=== PATIENT | female | born 1990 | race Caucasian/White ===

== ENCOUNTER 2020-02-19 14:03 | Outpatient (CLI) | payer OTHER, SELFPAY ==
--- NOTE | ~2020-02-19 | XR_ITS ---
EXAMINATION: XR chest 2V EXAM DATE: 02/19/2020 14:23 INDICATION: Anterior chest wall pain, symptoms one week. TECHNIQUE: Frontal and lateral projections of the chest obtained and reviewed. Comparison is made to prior examination from 03/10/2018. FINDINGS: The lungs are clear. There are no pleural effusions. The cardiomediastinal silhouette is within normal limits. There is no pneumothorax suspected. The bones and soft tissues are unremarkab le. IMPRESSION: Unremarkable chest x-ray exam. Reviewed, dictated and finalized at location A.
== END 2020-02-19 14:04 | disposition home or self-care (01) ==
PROVIDERS: PCP Family Medicine; Visit Provider Family Medicine
DX: R07.89 Other chest pain (principal)
CPT/HCPCS: 71046

== ENCOUNTER 2021-06-24 09:48 | Outpatient (CLI) | payer OTHER, SELFPAY ==
--- NOTE | ~2021-06-24 | XR_ITS ---
EXAMINATION: XR shoulder LT min 2V DATE: 06/24/2021 10:11 INDICATION: Nontraumatic left shoulder pain TECHNIQUE: AP internally and externally rotated, AP oblique externally rotated and axillary views of the left shoulder were obtained. COMPARISON: None FINDINGS: Normal alignment. No fracture. Glenohumeral joint is normal. Acromioclavicular joint is normal. Soft tissues are unremarkable. Visualized portions of the left lung are clear. IMPRESSION: Negative left shoulder radiographs. Reviewed, dictated and finalized at location A. NSED BONDSMAN
--- NOTE | ~2021-06-24 | XR_ITS ---
EXAMINATION: XR_CERV2-3V_CR EXAM DATE: 06/24/2021 10:11 INDICATION: No known recent injury provided at this time. Pain of the neck. Cervicalgia. Radiating to left shoulder. TECHNIQUE: Cervical spine frontal, lateral, open-mouth odontoid projections. There is no prior stud y for comparison. FINDINGS: There is no evidence of acute cervical fracture. The odontoid process is intact. Pre-dens space is normal. Prevertebral soft tissue is normal. There are no soft tissue abnormalities identi fied. Vertebral body and disc heights are well-maintained. The vertebral bodies are aligned. No more than mild cervical arthropathy. Lung apices are clear. IMPRESSION: 1. No more than mild cervical arthropathy, without stenosis. Reviewed, dictated and finalized at location A. [employer] APPRENTICE
== END 2021-06-24 09:49 | disposition home or self-care (01) ==
LOC: ANHIMG 09:52
PROVIDERS: PCP Family Medicine; Visit Provider Family Medicine
DX: M54.2 Cervicalgia (principal); M25.512 Pain in left shoulder
CPT/HCPCS: 72040; 73030

== ENCOUNTER 2022-10-25 12:50 | Emergency (ER) | payer OTHER, SELFPAY ==
[2022-10-25 13:03] VITALS: BP 112/81; PULSE 93; RESP 16; TEMP 36.7; O2SAT 100
--- NOTE | 2022-10-25 13:05 | ED.BACK ---
HPI - Back Pain/Injury General Chief Complaint: Back Pain/Injury Stated Complaint: neck/back pain Time Seen by Provider: 10/25/22 13:06 Source: patient Mode of arrival: ambulatory Limitations: no limitations History of Present Illness HPI Narrative: Ms. Bañuelos is a 32-year-old female patient presenting to clinic today with complaints of neck and upper back pain 2 days. She reports she has no known injury. She is having pain into the right side of her neck and into the right trapezius muscle. Has pain with turning her head side to side. Denies any numbness or tingling going down her arm however the feels as though the pain is radiating into the anterior chest as well with movement. Related Data Home Medications Medication Instructions Recorded Confirmed L norgest/E estradiol-E estrad 1 tablet DAILY 06/23/19 06/23/19 0.15 mg-30 mcg (84)/10 mcg(7) tabs,3mos (Ashlyna) Allergies Allergy/AdvReac Type Severity Reaction Status Date / Time ciprofloxacin Allergy Intermediate Anaphylactic Verified 04/11/18 11:27 Shock Sulfa (Sulfonamide Allergy Unknown Rash Verified 06/21/19 21:24 Antibiotics) Review of Systems Review of Systems: Pertinent positives per HPI. Patient denies any fever, chills, rash, headache, visual changes, dizziness, cough, runny nose, sore throat, shortness of breath, chest pain, palpitations, nausea, vomiting, diarrhea, constipation, abdominal pain, or any urinary issues. PMFSH Past Medical History Medical History Healthy adult Surgical History Surgical History No pertinent past surgical history Social History Social History Smoking status: Current every day smoker Gender identity (if verbalized by the patient): Female Comments At the time of my signature, I reviewed and agree with the nursing past medical, surgical, social, and family history. There is no relevant family history pertinent to the patient complaint. Exam Narrative: General: Well-developed, well nourished, in no apparent distress Head: Normocephalic, atraumatic. Cardio: Regular rate and rhythm, s1 and s2 normal, no murmur appreciated. Resp: Clear to auscultation bilaterally, no rhonchi, rales, wheezing or rubs. Musculoskeletal: No deformity, tender to palpation over the right trapezius musculature and also the cervical portion of the trapezius muscle, pain with turning her head to the left against resistance, unable to fully hyperextend or flex her neck, range of motion limited due to pain, hand grasp strong bilaterally, muscle strength strong and equal, peripheral pulse strong, no edema, no cyanosis, normal gait and station Course Course Emergency Course: Portions of this record may have been created with voice recognition software. Level of Care: Express Care Visit Vital Signs Vital signs: Vital Signs Temperature 36.7 C 10/25/22 13:03 Pulse Rate 93 10/25/22 13:03 Respiratory Rate 16 10/25/22 13:03 Blood Pressure 112/81 10/25/22 13:03 Pulse Oximetry 100 10/25/22 13:03 Temperature 36.7 C 10/25/22 13:03 Pulse Rate 93 10/25/22 13:03 Respiratory Rate 16 10/25/22 13:03 Blood Pressure 112/81 10/25/22 13:03 Pulse Oximetry 100 10/25/22 13:03 Vital signs reviewed MDM - Back Pain/Injury MDM Narrative Medical decision making narrative: At the time of visit patient is resting comfortably on exam table. I suspect patient has a muscular strain of the cervical portion of the trapezius muscle. Will send in prescription for some prednisone and Flexeril. Supportive measures were discussed with the patient she voiced understanding discharge instructions agrees to treatment plan. Differential Diagnosis Differential diagnosis: Likely other (Muscle strain, cervical strain, cervical disc disease, to
== END 2022-10-25 13:19 | disposition home or self-care (01) ==
PROVIDERS: Emergency Provider Nurse Practitioner Family; PCP Physician Assistant
DX: S16.1XXA Strain of muscle, fascia and tendon at neck level, initial encounter (principal); X58.XXXA Exposure to other specified factors, initial encounter; F17.200 Nicotine dependence, unspecified, uncomplicated
CPT/HCPCS: 99213; G0463

== ENCOUNTER 2022-11-06 09:11 | Emergency (ER) | payer OTHER, SELFPAY ==
[2022-11-06 09:30] VITALS: BP 114/85; PULSE 90; RESP 16; TEMP 36.6; O2SAT 100
--- NOTE | 2022-11-06 09:36 | ED.URI ---
HPI - URI/Sore Throat General Chief Complaint: Upper Respiratory Infection Stated Complaint: SORE THROAT/FEVER Time Seen by Provider: 11/06/22 09:36 Source: patient, RN notes reviewed and old records reviewed Mode of arrival: ambulatory Limitations: no limitations History of Present Illness HPI Narrative: 32-year-old female presents to the [facility] with complaints of sore throat and fever. Patient reports 3 days of a sore throat. Reports 102 fever last night. Has taken [id number] products which has helped symptoms. Patient states that she is concerned mostly for strep. Onset (ago): day(s) (3) Related Data Home Medications Medication Instructions Recorded Confirmed levothyroxine 50 mcg tablet 50 mcg PO DAILY 11/06/22 11/06/22 sertraline 50 mg tablet 50 mg PO DAILY 11/06/22 11/06/22 Allergies Allergy/AdvReac Type Severity Reaction Status Date / Time ciprofloxacin Allergy Intermediate Anaphylactic Verified 04/11/18 11:27 Shock Sulfa (Sulfonamide Allergy Unknown Rash Verified 06/21/19 21:24 Antibiotics) Review of Systems Review of Systems: All systems reviewed & are unremarkable except as noted in HPI and below Constitutional: Constitutional: Reports as per HPI and Reports fever(s) Eyes: Eyes: Reports no additional eye complaints ENT: Reports as per HPI and Reports sore throat Cardiovascular: Cardiovascular: Reports no additional cardiovascular complaints, Denies chest pain and Denies dyspnea Respiratory: Respiratory: Reports no additional respiratory complaints, Denies chest congestion, Denies cough and Denies dyspnea Gastrointestinal: Gastrointestinal: Reports no additional gastrointestinal complaints, Denies abdominal pain, Denies nausea and Denies vomiting Musculoskeletal: Musculoskeletal: Reports no additional musculoskeletal complaints Integumentary/Breasts: Skin/Breast: Reports system reviewed and no additional complaints, except as docu Neurologic: Reports system reviewed and no additional complaints, except as documented Psychiatric: Psychiatric: Reports no additional psychiatric complaints Allergic/Immunologic: Allergic/Immunologic: Reports no additional allergic/immunologic complaints PMFSH Past Medical History Medical History Healthy adult Surgical History Surgical History No pertinent past surgical history Social History Social History Smoking status: Current every day smoker Gender identity (if verbalized by the patient): Female Comments At the time of my signature, I reviewed and agree with the nursing past medical, surgical, social, and family history. There is no relevant family history pertinent to the patient complaint. Exam Const: General: cooperative, healthy appearing, comfortable, no acute distress, well developed, alert and well nourished Nutritional Appearance: well nourished Orientation/consciousness: patient oriented x3 Limitations: no limitations HENMT: Head: normal to inspection Ears: hearing grossly normal bilaterally and external ears normal Face/Nose/Sinus: Normal external nose present, Normal nares present, Normal nasal mucous membranes and turbinates present and normal facial exam Face and sinus: normal facial exam Mouth: Yes Normal oral and palatal mucosa present, Yes lip normal and Yes moist mucous membranes Throat: posterior oropharynx normal, tonsils normal and uvula midline (Bifurcated) Eyes: General: appearance normal, both eyes and all related structures Alignment and Position: alignment normal Periorbital: periorbital findings normal Conjunctivae: conjunctivae normal Pupils: Equal, round and reactive pupils present EOM: EOMs intact bilaterally Neck: Neck: normal visual inspection, full ROM, no lymphadenopathy and no meningeal signs Chest: Chest palpation & inspection
== END 2022-11-06 09:48 | disposition home or self-care (01) ==
PROVIDERS: Emergency Provider Nurse Practitioner; PCP Physician Assistant
DX: J02.9 Acute pharyngitis, unspecified (principal); F17.200 Nicotine dependence, unspecified, uncomplicated
CPT/HCPCS: 87081; 87880; 99213; G0463

== ENCOUNTER 2023-09-27 13:17 | Outpatient (CLI) | payer OTHER, SELFPAY ==
[2023-09-27 13:48] LABS: Hematocrit 39.7 % (37.0-47.0); Hemoglobin 13.1 g/dL (12.0-15.0)
== END 2023-09-27 13:18 | disposition home or self-care (01) ==
LOC: ANHSURGERY 13:20
PROVIDERS: PCP Physician Assistant; Visit Provider Obstetrics & Gynecology
DX: R10.2 Pelvic and perineal pain (principal); Z01.818 Encounter for other preprocedural examination
CPT/HCPCS: 36415; 85014; 85018; 86850; 86900; 86901

== ENCOUNTER 2023-10-29 00:29 | Day surgery (SDC) | payer OTHER, SELFPAY ==
[2023-09-24 14:57] VITALS: BMI 22.8
--- NOTE | 2023-09-24 15:29 | PC.NURSE ---
Addendum entered by Meena Park RN 10/21/23 15:32: PT TO ARRIVE AT 0630 ON 10/29/23 FOR SURGERY AT 0830. Original Note: Report to the Outpatient Waiting Room, entrance under the green pavilion located off [facility], at time __0815AM_ on date _Wed10/01/23 . Planned Procedure Time: _1015AM . Time changes happen often and if your time is changed the preop area will call you the afternoon before. - You and your visitor will be asked to self-screen and do not enter if you have any COVID symptoms. - A mask is optional within the hospital at this time. Patients may have clear liquids (water, carbonated beverages, clear teas, apple juice) until 3 hours prior to surgery with a maximum of 20 ounces. - No food from midnight until time of surgery Take the following medications with a SIP of water the morning of surgery: LEVOTHYROXINE; SERTRALINE DO NOT STOP ANY OF YOUR OTHER PRESCRIPTION MEDICATIONS PRIOR TO SURGERY ?EXCEPT THE FOLLOWING Medications to discontinue per physician NONE Date to take last dose Please no make-up, nail maltese, hairspray, perfume, deodorant, or body powder the day of surgery. No jewelry (including any body piercings) or valuables the day of surgery, leave them at home. Please take a shower or bath the night before, or the morning of, surgery with an antibacterial soap. Wear comfortable, loose fitting clothing. Children are encouraged to wear pajamas. - Jewelry must be removed prior to entering the operating room. Rings and piercings that are not removed may be cut off. - The hospital will not accept responsibility for valuables. - Please leave all valuables, including medications, at home the day of surgery. If you are going home after surgery, a licensed hole digger truck driver must drive you home. - NO public transportation without another adult if you receive anesthesia. - We recommend that an adult stay with you for 24 hours following discharge. - We also recommend that you do not drive, make important decision, drink alcoholic beverages, or take any drugs that were not prescribed by your health care provider for at least 24 hours after your discharge time. Follow any additional instructions given to you from your surgeon. If you or anyone in your household have experienced Covid symptoms in the past week, please notify your surgeon or the nurse liaison at the phone number below for possible testing. Telephone instructions given to __YOLANDA and asked if any additional questions and then verbalized understanding. Patient advised to call surgeon office or pre surgery nurse liaison [phone] if any additional questions.
--- NOTE | 2023-09-30 06:46 | PM.IMHP ---
H&P: HPI History of Present Illness Date/Time: 09/30/23 06:46 Chief Complaint: pelvic pain and bleeding Narrative: 33-year-old female admitted for laparoscopy/hysteroscopy / dilatation curettage. The patient has had pain and irregular bleeding. She also desires so we will the undertake chromopertubation well inside. Risks and benefits of this procedure reviewed including not exclusive of , aspiration, bleeding, transfusion, perforation injury to bowel, bladder, ureters, or other internal organs with need for laparotomy. She received the ACOG handout entitled laparoscopy, hysteroscopy, dilatation curettage respectively, had all questions answered and asked to proceed PMFSH Past Medical History Medical History Healthy adult Surgical History Surgical History No pertinent past surgical history Social History Social History Smoking status: Never smoker Alcohol intake: never Substance use: never Substance use type: does not use Living arrangements: with family Gender identity (if verbalized by the patient): Female Spiritual care concerns: No Meds Home Medications and Allergies Home Medications Medication Instructions Recorded Confirmed Type levothyroxine 50 mcg tablet 50 mcg PO DAILY 11/06/22 09/24/23 History sertraline 50 mg tablet 25 mg PO DAILY 11/06/22 09/24/23 History Allergies Allergy/AdvReac Type Severity Reaction Status Date / Time ciprofloxacin Allergy Intermediate Anaphylactic Verified 09/24/23 15:27 Shock Sulfa (Sulfonamide Allergy Unknown Rash Verified 09/24/23 15:27 Antibiotics) Exam Const: General: cooperative, healthy appearing and comfortable Nutritional Appearance: average body habitus Orientation/consciousness: oriented to person, oriented to place and oriented to time HENMT: Head: normal to inspection Resp: Effort & Inspection: normal respiratory effort Cardio: Rate: regular rate Rhythm: regular rhythm Heart sounds: S1 normal heart sound present and S2 normal heart sound present GI: Inspection: normal to inspection : External Female Exam: normal external appearance Speculum Exam - Vagina: normal appearance of the vagina Speculum Exam - Cervix: normal appearance of the cervix Bimanual exam- vagina & uterus: Uterine tenderness Bimanual Exam- Adnexa, other: tender bilaterally Assessment and Plan Assessment and plan (1) Pelvic pain: Code(s): R10.2 - Pelvic and perineal pain Status: Acute (2) Irregular intermenstrual bleeding: Code(s): N92.1 - Excessive and frequent menstruation with irregular cycle Status: Acute Plan laparoscopy/ hysteroscopy/ dilatation curettage/ chromopertubation
--- NOTE | 2023-09-30 12:36 | WPDANESEPPF ---
Anes - Initial Pre Proc Eval Procedure: Operation Date: 10/01/23 10:15 Proposed Procedures p Diagnostic Laparoscopy with Dilation and Curettage, Chromopertubation - Juan Rosario MD Date/Time: 09/30/23 12:36 Surgeon: Juan Rosario MD Pre Op Diagnosis: Pelvic Pain, Excessive Bleeding Patient Data Age: 33 Gender: F Height: 1.78 m Weight: 72.1 kg Allergies Allergy/AdvReac Type Severity Reaction Status Date / Time ciprofloxacin Allergy Intermediate Anaphylactic Verified 09/24/23 15:27 Shock Sulfa (Sulfonamide Allergy Unknown Rash Verified 09/24/23 15:27 Antibiotics) Home Medications Medication Instructions Recorded Confirmed Type levothyroxine 50 mcg tablet 50 mcg PO DAILY 11/06/22 09/24/23 History sertraline 50 mg tablet 25 mg PO DAILY 11/06/22 09/24/23 History Results Review: All pre-operative results and documents have been reviewed as part of the pre-operative evaluation. [facility] Past Medical History Medical History (Updated 09/30/23 @ 12:37 by Juan Doherty DO) Anxiety Asthma Endometriosis Healthy adult Hypothyroidism Surgical History Surgical History No pertinent past surgical history Social History Social History Smoking status: Never smoker Alcohol intake: never Substance use: never Substance use type: does not use Living arrangements: with family Gender identity (if verbalized by the patient): Female Spiritual care concerns: No Anes - Eval Final PreProcedure Day of Procedure 09/30/23 12:36 Results Review: All pre-operative results and documents have been reviewed as part of the pre-operative evaluation. Informed Consent: The patient's anesthetic plan and its attendant risks and benefits were discussed with the patient/family/POA. Questions were solicited and answers provided to the satisfaction of the patient/family/POA.
--- NOTE | 2023-10-21 15:31 | PC.NURSE ---
Pt states no changes in medications or health history since initial interview. New preop instructions reviewed with pt. Pt denies further questions at this time.
--- NOTE | 2023-10-27 06:46 | PM.IMHP ---
H&P: HPI History of Present Illness Date/Time: 10/27/23 06:46 Chief Complaint: pelvic pain and bleeding Narrative: since 33-year-old 1 para admitted for diagnostic laparoscopy/hysteroscopy / dilatation curettage secondary to bleeding and pain. She will also undergo chromopertubation a she would like to become . Risks and benefits reviewed including exclusive of , aspiration, bleeding, transfusion, perforation into the bowel, bladder, ureters, or other internal organs with the need for open laparotomy. She received the ACOG handouts entitled hysteroscopy/ dilatation curettage/laparoscopy. She had all questions answered. She asked to proceed PMFSH Past Medical History Medical History Anxiety Asthma Endometriosis Healthy adult Hypothyroidism Surgical History Surgical History No pertinent past surgical history Social History Social History Smoking status: Never smoker Alcohol intake: never Substance use: never Substance use type: does not use Living arrangements: with family Gender identity (if verbalized by the patient): Female Spiritual care concerns: No Meds Home Medications and Allergies Home Medications Medication Instructions Recorded Confirmed Type levothyroxine 50 mcg tablet 50 mcg PO DAILY 11/06/22 10/21/23 History sertraline 50 mg tablet 25 mg PO DAILY 11/06/22 10/21/23 History Allergies Allergy/AdvReac Type Severity Reaction Status Date / Time ciprofloxacin Allergy Intermediate Anaphylactic Verified 10/21/23 15:31 Shock Sulfa (Sulfonamide Allergy Unknown Rash Verified 10/21/23 15:31 Antibiotics) Exam Const: General: cooperative, healthy appearing and comfortable Nutritional Appearance: average body habitus Orientation/consciousness: oriented to person, oriented to place and oriented to time HENMT: Head: normal to inspection Resp: Effort & Inspection: normal respiratory effort Cardio: Rate: regular rate Rhythm: regular rhythm Heart sounds: S1 normal heart sound present and S2 normal heart sound present GI: Inspection: normal to inspection Assessment and Plan Assessment and plan (1) Irregular intermenstrual bleeding: Code(s): N92.1 - Excessive and frequent menstruation with irregular cycle Status: Acute (2) Pelvic pain: Code(s): R10.2 - Pelvic and perineal pain Status: Acute Plan laparoscopy/ hysteroscopy / dilatation curettage/ chromopertubation
[2023-10-29] VITALS (10 sets, daily range): BP systolic 98–115; BP diastolic 56–82; PULSE 59–79; RESP 14–18; TEMP 36.6–36.9; O2SAT 96–100
--- NOTE | 2023-10-29 04:40 | WPDHPUPDATE1 ---
History and Physical Update Update Date/Time: 10/29/23 04:40 History and Physical has been reviewed, including an updated exam of the patient. There are NO changes in the patient's condition. Risks, benefits, and alternatives have been discussed and questions answered. Patient agrees to proceed with procedure.
[2023-10-29] MEDS: ACETAMINOPHEN 500 MG TABLET 1000 MG PO (06:43)
[2023-10-29] MEDS: LACTATED RINGERS 1,000 ML 30 ML IV CONT ×2 (07:28→09:44)
[2023-10-29] MEDS: KETOROLAC 15 MG/ML VIAL (*BKC) IV PUSH (07:28)
--- NOTE | 2023-10-29 07:52 | P.PNAN_ITS ---
Anes - Initial Pre Proc Eval Procedure: Operation Date: 10/29/23 08:30 Proposed Procedures p Diagnostic Laparoscopy, Hysteroscopy with Dilation and Curettage - Juan Rosario MD Date/Time: 10/29/23 07:52 Surgeon: Juan Rosario MD Pre Op Diagnosis: Pelvic Pain, Excessive Bleeding Patient Data Age: 33 Gender: F Height: 1.78 m Weight: 69.3 kg Last Vital Signs Temp 97.9 F 10/29/23 06:51 Pulse 79 10/29/23 06:51 Resp 16 10/29/23 06:51 BP 112/82 10/29/23 06:51 Pulse Ox 100 10/29/23 06:51 O2 Del Method Room Air 10/29/23 06:51 Allergies Allergy/AdvReac Type Severity Reaction Status Date / Time ciprofloxacin Allergy Intermediate Anaphylactic Verified 10/29/23 06:41 Shock Sulfa (Sulfonamide Allergy Unknown Rash Verified 10/29/23 06:41 Antibiotics) Home Medications Medication Instructions Recorded Confirmed Type levothyroxine 50 mcg tablet 50 mcg PO DAILY 11/06/22 10/21/23 History sertraline 50 mg tablet 25 mg PO DAILY 11/06/22 10/21/23 History hydrocodone 5 mg-acetaminophen 325 1 tablet PO Q4H PRN pain #30 tabs 10/29/23 Rx mg tablet Laboratory Tests 10/29/23 07:06 Blood Type Pending Antibody Screen Pending Patient hx anesthesia problems: none Family hx anesthesia problems: none Results Review: All pre-operative results and documents have been reviewed as part of the pre- operative evaluation. [facility] Past Medical History Medical History Anxiety Asthma Endometriosis Healthy adult Hypothyroidism Surgical History Surgical History No pertinent past surgical history Social History Social History Smoking status: Never smoker Alcohol intake: never Substance use: never Substance use type: does not use Living arrangements: with family Gender identity (if verbalized by the patient): Female Spiritual care concerns: No Anes - Eval Final PreProcedure Day of Procedure 10/29/23 07:52 Patient weight: normal Heart: regular rate and rhythm Lungs: clear to auscultation Airway: Mallampati scale and special considerations (Upper incisor crown. ) Neurological: alert and oriented Last oral intake: >/= 8 hours ASA classification: II Emergent: no Anesthetic plan: proceed Anesthesia type and monitoring: general LMA and standard monitoring Results Review: All pre-operative results and documents have been reviewed as part of the pre- operative evaluation. Informed Consent: The patient's anesthetic plan and its attendant risks and benefits were discussed with the patient/family/POA. Questions were solicited and answers provided to the satisfaction of the patient/family/POA.
[2023-10-29] MEDS: METHYLENE BLUE 0.5% INJ 10 ML AMPULE 20 ML IRRIGATION (08:56)
--- NOTE | 2023-10-29 09:40 | W.PM.PROC2 ---
Procedure Note - Detailed Date of Procedure 10/29/23 Pre-op Diagnosis Pelvic Pain, Excessive Bleeding Post-op Diagnosis Other (Pelvic pain/excessive bleeding/ endometriosis) Procedure Performed laparoscopy with destruction endometriosis. Hysteroscopy/ dilatation curettage/chromopertubation Surgeon Juan Rosario MD Anesthesia General Indications to 33-year-old female pain and excessive heavy bleeding Findings multiple areas of endometriosis in the cul-de-sac on each ovary and uterosacral ligament. Patent fallopian tubes by chromopertubation. Normal-appearing appendix liver and gallbladder Description of Procedure patient was prepped draped in the normal sterile fashion placed in the dorsal lithotomy position. Under excellent general trach anesthesia weighted speculum placed in posterior fornix vagina. Anterior lip of the cervix grasped with single-tooth tenaculum. Amaya's cannula inserted the cervix and attached to the single-tooth. The weighted speculum was removed and this was used later for uterine manipulation. The bladder emptied of clear urine and gloves were changed. An infraumbilical incision made in the Veress needle passed in the abdomen. Abdomen filled with CO2 gas 15mmHg. 5mm trocar advanced under the Optiview with no injury seen. Patient placed in Trendelenburg and a suprapubic incision made. The 5mm trocar advanced under direct visualization assuring no injury. Photo documentation was undertaken of the endometriosis. Using monopolar polar cautery at 35 w per 2nd these areas were desiccated. Irrigation undertaken until clear. The uterus appeared within normal limits the fallopian tubes were noted be open after methylene blue was pushed to the left fallopian tube. Irrigation undertaken again the appendix liver gallbladder were visualized and photo documented. No other abnormalities were seen. The lower site removed. The gas removed from the abdomen. The upper site removed. The incisions closed with 4-0 Monocryl and glue. Attention was then turned to the hysteroscopic portion. The uterus sounded to 8cm. Serial dilatation with fragmented dilators performed followed by passage of the 5mm visualizing of the dye hysteroscope. No abnormalities were seen. The uterus then scraped over the 360? until a good grating sound was heard. The instruments withdrawn the patient was awakened went to recovery in satisfactory condition. All sponge, needle, instrument counts were correct. Blood loss estimated 5cc. There were no immediate complications noted Estimated Blood Loss 5 Drains No Packing No Pathology Yes Complications No immediate complications Condition Stable Disposition PACU
[2023-10-29] MEDS: oxyCODONE HCL (*CRX) 5 MG TAB IR PO (11:00)
[2023-10-29] MEDS: ONDANSETRON INJ 4 MG/2 ML VIAL IV PUSH (12:06)
== END 2023-10-29 12:30 | disposition home or self-care (01) ==
PROVIDERS: PCP Physician Assistant; Visit Provider Obstetrics & Gynecology
PROC: 0UDB8ZZ Extraction of Endometrium, Via Natural or Artificial Opening Endoscopic (ICD-10-PCS; CPT 58558; principal; 2023-10-29 08:30)
DX: N80.103 Endometriosis of bilateral ovaries, unspecified depth (principal); N80.3C3 Endometriosis of bilateral uterosacral ligament(s), unspecified depth; N92.1 Excessive and frequent menstruation with irregular cycle; F41.9 Anxiety disorder, unspecified; E03.9 Hypothyroidism, unspecified
CPT/HCPCS: 58558; 58662; 36415; 86850; 86900; 86901; 88305; A9270; J1100; J1170; J1200; J1885; J2250; J2405; J2704; J3010; J7030; J7120; Q9968

== ENCOUNTER 2024-09-18 21:50 | Observation (INO) | payer BC, SELFPAY ==
[2024-09-18] VITALS (21 sets, daily range): BP systolic 95–119; BP diastolic 51–71; PULSE 91–111; TEMP 36.6; O2SAT 97–100; BMI 24.5
--- OUTSIDE RECORDS SUMMARY | 2024-09-18 21:58 | XMS_ITS | Patient Health Summary ---
Author Organization [facility] [employer] Address [address] [place] [address] Care Team Providers Care Soup Person Name Role Phone Unknown, Provider Primary Care Provider Unavaila ble Note from [facility],non-owned Affiliates and Associated Physician Practices is amultiple site organization consisting of ambulatory clinics and hospital sitesin [place], [place], [place]. This disclosure is being madepursuant to the Care Everywhere program and may not contain all information available regarding this patient. Last updated 18.[facility] [employer] Allergies * Sulfa Drugs Medications Be aware that medications may not be up to date on this document. Always verify current medications with the patient. No known medications Social History Tobacco Use Types Packs/Day Years Used Date Smoking Tobacco: Never Sex and Gender Information Value Date Recorded Sex Assigned at Not on file Gender Identity Not on file Sexual Orientation Not on file Last Filed Vital Signs Vital Sign Reading Time Taken Comments Blood Pressure 128/80 05/22/2016 2:54 PM CDT Pulse 77 05/22/2016 2:54 PM CDT Temperature 36.9 C (98.4 F) 05/22/2016 2:54 PM CDT Respiratory Rate 20 05/22/2016 2:54 PM CDT Oxygen Saturation 98% 05/22/2016 2:54 PM CDT Inhaled Oxygen Concentration - - Weight 64 kg (141 lb) 05/22/2016 2:54 PM CDT Height 177.8 cm (5' 10 ) 05/22/2016 2:54 PM CDT Body Mass Index 20.23 05/22/2016 2:54 PM CDT Care Teams Soup Person Relationship Specialty Start Date End Date Unknown, Provider PCP - General 05/22/16
--- OUTSIDE RECORDS SUMMARY | 2024-09-18 21:58 | XMS_ITS | Referral Summary ---
Author Organization [facility] [employer] Address [address] [place] [address] Care Team Providers Care Armhole Baster Jumpbasting Name Role Phone Unknown, Provider Primary Care Provider Unavaila ble Source Comments [facility],non-owned Affiliates and Associated Physician Practices is amultiple site organization consisting of ambulatory clinics and hospital sitesin [place], [place], [place] and [place]. This disclosure is being madepursuant to the Care Everywhere program and may not contain all information available regarding this patient. Last updated 18.[facility] Allergies Active Allergy Reactions Criticality Noted Date Comments Sulfa Drugs 05/22/2016 Medications Be aware that medications may not [...] Mass Index 20.23 05/22/2016 2:54 PM CDT Plan of Treatment Not on file Care Teams Armhole Baster Jumpbasting Relationship Specialty Start Date End Date Unknown, Provider PCP - General 05/22/16
--- OUTSIDE RECORDS SUMMARY | 2024-09-18 21:58 | XMS_ITS | Referral Summary ---
Author Organization [address] Address [address] [place] [id number] Care Team Providers Care Warehouse Manager Name Role Phone Annie Vogt Primary Care Provider [phone] Allergies Active Allergy Reactions Criticality Noted Date Comments Sulfa (Sulfonamide Antibiotics) Unknown 03/27 Medications Pregnyl 10,000 unit injection 4 Active Follistim AQ 900 unit/1.08 mL cartridge 4 Active ganirelix 250 mcg/0.5 mL syringe 4 Active leuprolide 1 mg/0.2 mL kit 4 Active levothyroxine (SYNTHROID) 75 mcg tablet 4 Active medroxyPROGESTE Mamadou (PROVERA) 10 mg tablet 4 Active Menopur 75 unit recon soln 4 Active Estarylla 0.25-35 mg-mcg per tablet Take 1 tablet by mouth daily 4 Active sertraline (ZOLOFT) 50 mg tablet TAKE 1 TABLET BY MOUTH EVERY DAY AT BEDTIME FOR DEPRESSION 4 Active Active Problems No known active problems Immunizations Immunization Administration Dates Next Due Influenza, Quadrivalent, Spl it, Preservative Free, Intramuscular 05/04/2019,05/12/2017 MMR 04/07/2024 PPD TEST 04/21/2024 Tdap 06/17/2016 Social History Tobacco Use Types Packs/Day Years Used Date Smoking Tobacco: Never Assessed Comments Unknown Sex and Gender Information Value Date Recorded Sex Assigned at Not on file 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 Gender Identity Not on file Sexual Orientation Not on file Last Filed Vital Signs Vital Sign Reading Time Taken Comments Blood Pressure 108/72 04/23/2024 12:14 PM CDT Pulse 86 04/23/2024 12:14 PM CDT Temperature 36.7 C (98.1 F) 04/23/2024 12:14 PM CDT Respiratory Rate 18 04/23/2024 12:14 PM CDT Oxygen Saturation 98% 04/23/2024 12:14 PM CDT Inhaled Oxygen Concentration - - Weight 73.9 kg (163 lb) 04/23/2024 12:14 PM CDT Height 177.8 cm (5' 10 ) 04/23/2024 12:14 PM CDT Body Mass Index 23.39 04/23/2024 12:14 PM CDT Plan of Treatment Not on file Insurance [employer] PPO [place] Care Teams Warehouse Manager Relationship Specialty Start Date End Date Annie Vogt PA [address] [place] [address] [id number] PCP - General Physician Long Term Care Administrator 04/21/24
--- OUTSIDE RECORDS SUMMARY | 2024-09-18 21:58 | XMS_ITS | Clinical Summary ---
Author Organization [facility] [employer] Address [address] [place] [address] Care Team Providers Care Electronic News Gathering Camera Person Name Role Phone Unknown, Provider Primary Care Provider Unavaila ble Source Comments [facility],non-owned Affiliates and Associated Physician Practices is amultiple site organization consisting of ambulatory clinics and hospital sitesin [place], [place], [place] and [place]. This disclosure is being madepursuant to the Care Everywhere program and may not contain all information available regarding this patient. Last updated 18.[facility] [employer] Allergies Active Allergy Reactions Criticality Noted Date Comments Sulfa Drugs 05/22/2016 Medications Be aware that medications may not be up to date on this document. Always verify current medications with the patient. No known medications Family History Medical History Relation Name Comments ADHD Neg Hx Allergies Neg Hx Aneurysm Neg Hx Asthma Neg Hx Autoimmune Disease Neg Hx Bipolar Disorder Neg Hx CVA<55(male) Neg Hx CVA<65(female) Neg Hx Cancer - Breast Neg Hx Cancer - Colon Neg Hx Cancer - Other Neg Hx Cancer - Ovarian Neg Hx Cancer - Pancreatic Neg Hx Cancer - Prostate Neg Hx Childhood Hearing Disorder Neg Hx Clotting Disorder Neg Hx Depression Neg Hx Diabetes Neg Hx Eczema Neg Hx Genetic Neg Hx Heart defect Neg Hx Hypercholesterolemia Neg Hx Hypertension Neg Hx ME<55(male) Neg Hx ME<65(female) Neg Hx Mental Health Neg Hx Migraine Neg Hx Osteoporosis Neg Hx Seizures Neg Hx Sudd. <30 Neg Hx Thyroid Disease Neg Hx Ulcerative Colitis Neg Hx Social History Tobacco Use Types Packs/Day Years [...] 05/22/2016 2:54 PM CDT Plan of Treatment Health Maintenance Due Date Last Done Comments PAP SMEAR 1991 HIV SCREENING 2006 HEPATITIS C SCREENING 02/12/2009 DTAP/TDAP/TD VACCINES (1 - Tdap) 2010 HEPATITIS B VACCINE (1 of 3 - 19+ 3-dose series) 2010 COVID-19 VACCINE (1 - 2023-2 5 season) 2024 INFLUENZA VACCINE (#1) 2024 DEPRESSION SCREENING 07/26/2024 ZOSTER VACCINE (1 of 2) 2041 HIB VACCINE Aged Out No longer eligi ble based on patient's age to complete this topic HPV VACCINE Aged Out No longer eligi ble based on patient's age to complete this topic MENINGOCOCCAL (Group B) VACCINE Aged Out No longer eligible based on patient's age to complete this topic MENINGOCOCCAL VACCINE Aged Out No julianna adela eligible based on patient's age to complete this topic PNEUMOCOCCAL VACCINE Aged Out No long er eligible based on patient's age to complete this topic Care Teams Electronic News Gathering Camera Person Relationship Specialty Start Date End Date Unknown, Provider PCP - General 05/22/16
--- OUTSIDE RECORDS SUMMARY | 2024-09-18 21:58 | XMS_ITS | Clinical Summary ---
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 Gender Identity Not on file Sexual Orientation Not on file Obstetrics History Last Filed Vital Signs Vital Sign Reading [...] 04/23/2024 12:14 PM CDT Plan of Treatment Health Maintenance Due Date Last Done Comments Cervical Cancer Screening 1991 Depression Screening 1991 Hepatitis C Screening 1991 Varicella Vaccines (1 of 2 - 13+ 2-dose series) 02/18/2004 Hepatitis B Screening 2009 Regular Well Visit/Exam 18-64 2009 Pneumococcal vaccine <65 (1 of 2 - PCV) 2010 Zoster Vaccine (1 of 2) 2010 Covid-19 Vaccine (3 - Pfizer risk series) 04/25/2022 03/28/2022, 02/26/2022 Influenza Vaccine (#1) 2024 , 05/12/2017 DTaP/Tdap/Td Vaccine (2 - Td or Tdap) 06/17/2026 06/17/2016 HPV Vaccines Aged Out No longer eligi ble based on patient's age to complete this topic Insurance [employer] PPO [place] Care Teams Drilling Foreman Relationship Specialty Start Date End Date Annie Vogt PA [address] [place] [id number] PCP - General Physician Spudder 04/21/24
--- OUTSIDE RECORDS SUMMARY | 2024-09-18 21:59 | XMS_ITS | Data Portability ---
Author Organization [facility] Juan Perea Address [address] [place] [place] [address] Care Team Providers Care Appliance Line Assembler Name Role Phone ELZBIETA CALZADA Primary Care Provider Assessment Encounter Date Assessment Date Assessment LastModified by Organization Details LastModified Time 11/05/2021 11/05/2021 Discussed with patient at length efficacy, risks, and benefits of COVID-19 vaccination. Provided patient education UTD handout on COVID-19 and . Pt is not vaccinated and wants to conceive. [email or web address] Not available 11/05/2021 15:10:27 Plan of Treatment Reminders Order Date Submit Date Provider Last Modified By Organization Details Last Modified Time Details Appointments ANY 15 2024 11:00A M DAVID VALENTINE Not available Not available Not available Lab TSH + free T4, serum 2023 024 [facility], [address], [place], [address], 11/19/2023 08:31:30 CMP, serum or plasma 2023 024 [facility], [address], [place], [address], 11/19/2023 08:31:31 lipid panel, serum 2023 024 [facility], [address], [place], [address], 11/19/2023 08:31:31 CBC w/ auto diff 2023 024 [facility], [address], [place], [address], 11/19/2023 08:31:32 HbA1c (hemoglob in A1c), blood 2023 024 [facility], [address], [place], [address], 11/19/2023 08:31:32 Referral physical therapist referral 2023 024 [facility], [address], [place], [address], 12/16/2023 10:40:56 Procedures None recorded. Surgeries None recorded. Imaging XR, cervical spine, 2 or 3 view 2020 021 [facility], [address] [place] [address] [address], [place], [address], 06/24/2021 17:38:30 XR, shoulder, 2 or more view 2020 021 [facility], [address] [place] [address] [facility], [place], [address], 06/24/2021 16:29:19 Medication Orders cyclobenz aprine 7.5 mg tablet 2023 024 [facility][id number], [address], [place], [id number], 11/18/2023 10:26:40 sertralin e 50 mg tablet 2023 024 [facility] #29366, [address], [place], [id number], 11/18/2023 10:25:00 polymyxin B sulfate 10,000 unit-trim ethoprim 1 mg/mL eye drops 2022 023 [facility] #[id number], [address], [place], [id number], 11/18/2023 10:08:14 sertralin e 50 mg tablet 2022 023 DON[facility] #86583, [address], [place], [id number], 10/15/2022 14:18:59 ibuprofen 800 mg tablet 2020 021 [facility] #40043, [address], [place], [id number], 10/15/2022 14:10:52 baclofen 10 mg tablet 2020 021 [facility] #33938, [address], [place], [id number], 10/15/2022 14:10:59 Patient TargetsNo targets recorded. Patient Instructions Encounter Date Encounter Id Patient Instructions Last Modified By Organization Details Last Modified Time 05/26/2021 [id number] neck pain: care instructions [email or web address] Not available 05/26/2021 13:31:30 Reason for Referral Physical Therapist Referral for Strain of neck muscle L neck pain x3 months, no trauma or injury Referring Physician: Annie Vogt, Family Medicine, Encounter Date: 11/18/2023 Results Created Date Observation Date Name Description Value Unit Range Abnormal Flag Note LastModifiedBy Organization Detail LastModifiedTime 11/18/1911/19/2023 TSH+F REE T4 TSH 2.390 uIU/m L 0.450- 4.500 Not Available [facility] ([facility]) [address] [facility], [place], [address], 11/19/2023 08:31:30 11/18/19 24 11/19/2023 TSH+F REE T4 T4,free(dire ct) 1.26 NG/dL 0.82-1 .77 Not Available [facility] ([facility]) [address] [facility], [place], [address], 11/19/2023 08:31:30 11/18/19 24 11/19/2023 LIPID PANEL WITH LDL/H DL RATIO cholesterol, total 198 mg/dL 100-19 9 Not Available [facility] ([facility]) [address] [place], [address], 11/19/2023 08:31:30 11/18/19 24 11/19/2023 LIPID PANEL WITH LDL/H DL RATIO triglyceride s 74 mg/dL 0-149 Not Available [facility] ([facility]) [address] [place], [address], 11/19/2023 08:31:30 11/18/19 24 11/19/2023 LIPID PANEL WITH LDL/H DL RATIO HDL cholesterol 50 mg/dL >39 Not Available [facility] ([facility]) [address] [place], [address], 11/19/2023 08:31:30 11/18/19 24 11/19/2023 LIPID PANEL WITH LDL/H DL RATIO VLDL cholesterol afshan 13 mg/dL 5-40 Not Available [facility] ([facility]) [address] [place], [address], 11/19/2023 08:31:30 11/18/19 24 11/19/2023 LIPID PANEL WITH LDL/H DL RATIO LDL chol calc ([facility]) 135 mg/dL 0-99 above high normal Not Available [facility] ([facility]) [address] [place], [address], 11/19/2023 08:31:30 11/18/19 24 11/19/2023 LIPID PANEL WITH LDL/H DL RATIO LDL/HDL ratio 2.7 ratio 0.0-3. 2 LDL/H DL Ratio Men Women 1/2 Avg.R isk 1.0 1.5 Avg.R isk 3.6 3.2 2X Avg.R isk 6.2 5.0 3X Avg.R isk 8.0 6.1 Not Available [facility] ([facility]) [address] [place], [address], 11/19/2023 08:31:30 11/18/19 24 11/19/2023 COMP. METAB OLIC PANEL (14) glucose 90 mg/dL 70-99 Not Available [facility] ([facility]) [address] [place], [address], 11/19/2023 08:31:31 11/18/19 24 11/19/2023 COMP. METAB OLIC PANEL (14) BUN 17 mg/dL 6-20 Not Available [facility] ([facility]) [address] [place], [address], 11/19/2023 08:31:31 11/18/19 24 11/19/2023 COMP. METAB OLIC PANEL (14) creatinine 0.73 mg/dL 0.57-1 .00 Not Available [facility] ([facility]) [address] [place], [address], 11/19/2023 08:31:31 11/18/19 24 11/19/2023 COMP. METAB OLIC PANEL (14) eGFR 112 mL/mi n/1.7 3 >59 Not Available [facility] ([facility]) [address] [place], [address], 11/19/2023 08:31:31 11/18/19 24 11/19/2023 COMP. METAB OLIC PANEL (14) BUN/creatini ne ratio 23 9-23 Not Available [facility] ([facility]) [address] [place], [address], 11/19/2023 08:31:31 11/18/19 24 11/19/2023 COMP. METAB OLIC PANEL (14) sodium 139 mmol/ L 134-14 4 Not Available [facility] ([facility]) [address] [facility], [place], [address], 11/19/2023 08:31:31 11/18/19 24 11/19/2023 COMP. METAB OLIC PANEL (14) potassium 4.6 mmol/ L 3.5-5. 2 Not Available [facility] ([facility]) [address] [place], [address], 11/19/2023 08:31:31 11/18/19 24 11/19/2023 COMP. METAB OLIC PANEL (14) chloride 101 mmol/ L 96-106 Not Available [facility] ([facility]) [address] [place], [address], 11/19/2023 08:31:31 11/18/19 24 11/19/2023 COMP. METAB OLIC PANEL (14) carbon dioxide, total 21 mmol/ L 20-29 Not Available [facility] ([facility]) [address] [facility] [place], [address], 11/19/2023 08:31:31 11/18/19 24 11/19/2023 COMP. METAB OLIC PANEL (14) calcium 9.3 mg/dL 8.7-10 .2 Not Available [facility] ([facility]) [address] [place], [address], 11/19/2023 08:31:31 11/18/19 24 11/19/2023 COMP. METAB OLIC PANEL (14) protein, total 7.5 g/dL 6.0-8. 5 Not Available [facility] ([facility]) [address] [facility] [place], [address], 11/19/2023 08:31:31 11/18/19 24 11/19/2023 COMP. METAB OLIC PANEL (14) albumin 4.6 g/dL 3.9-4. 9 Not Available [facility] ([facility]) [address] [facility] [place], [address], 11/19/2023 08:31:31 11/18/19 24 11/19/2023 COMP. METAB OLIC PANEL (14) globulin, total 2.9 g/dL 1.5-4. 5 Not Available [facility] ([facility]) [address] [facility], [place], [address], 11/19/2023 08:31:31 11/18/19 24 11/19/2023 COMP. METAB OLIC PANEL (14) A/G ratio 1.6 1.2-2. 2 Not Available [facility] ([facility]) [address] [facility], [place], [address], 11/19/2023 08:31:31 11/18/19 24 11/19/2023 COMP. METAB OLIC PANEL (14) bilirubin, total 0.4 mg/dL 0.0-1. 2 Not Available [facility] ([facility]) [address] [facility], [place], [address], 11/19/2023 08:31:31 11/18/19 24 11/19/2023 COMP. METAB OLIC PANEL (14) alkaline phosphatase 93 IU/L 44-121 Not Available [facility] ([facility]) [address] [facility], [place], [address], 11/19/2023 08:31:31 11/18/19 24 11/19/2023 COMP. METAB OLIC PANEL (14) AST (SGOT) 17 IU/L 0-40 Not Available [facility] ([facility]) [address] [facility], [place], [address], 11/19/2023 08:31:31 11/18/19 24 11/19/2023 COMP. METAB OLIC PANEL (14) ALT (SGPT) 9 IU/L 0-32 Not Available [facility] ([facility]) [address] [facility], [place], [address], 11/19/2023 08:31:31 11/18/19 24 11/19/2023 HEMOG LOBIN A1C hemoglobin A1C 5.1 % 4.8-5. 6 Predi abete s: 5.7 - 6.4 Diabe sandro: >6.4 Glyce ivan contr ol for adult s with diabe sandro: <7.0 Not Available [facility] ([facility]) [address] [place], [address], 11/19/2023 08:31:32 11/18/19 24 11/19/2023 CBC WITH DIFFE RENTI AL/PL ATELE T WBC 7.2 x10e3 /uL 3.4-10 .8 Not Available [facility] ([facility]) [address] [place], [address], 11/19/2023 08:31:32 11/18/19 24 11/19/2023 CBC WITH DIFFE RENTI AL/PL ATELE T RBC 4.07 x10e6 /uL 3.77-5 .28 Not Available [facility] ([facility]) [address] [place], [address], 11/19/2023 08:31:32 11/18/19 24 11/19/2023 CBC WITH DIFFE RENTI AL/PL ATELE T hemoglobin 12.6 g/dL 11.1-1 5.9 Not Available [facility] ([facility]) [address] [place], [address], 11/19/2023 08:31:32 11/18/19 24 11/19/2023 CBC WITH DIFFE RENTI AL/PL ATELE T hematocrit 37.7 % 34.0-4 6.6 Not Available [facility] ([facility]) [address] [place], [address], 11/19/2023 08:31:32 11/18/19 24 11/19/2023 CBC WITH DIFFE RENTI AL/PL ATELE T MCV 93 fL 79-97 Not Available [facility] ([facility]) [address] [place], [address], 11/19/2023 08:31:32 11/18/19 24 11/19/2023 CBC WITH DIFFE RENTI AL/PL ATELE T MCH 31.0 pg 26.6-3 3.0 Not Available [facility] ([facility]) [address] [facility], [place], [address], 11/19/2023 08:31:32 11/18/19 24 11/19/2023 CBC WITH DIFFE RENTI AL/PL ATELE T MCHC 33.4 g/dL 31.5-3 5.7 Not Available [facility] ([facility]) [address] [facility], [place], [address], 11/19/2023 08:31:32 11/18/19 24 11/19/2023 CBC WITH DIFFE RENTI AL/PL ATELE T RDW 12.4 % 11.7-1 5.4 Not Available [facility] ([facility]) [address] [facility], [place], [address], 11/19/2023 08:31:32 11/18/19 24 11/19/2023 CBC WITH DIFFE RENTI AL/PL ATELE T platelets 231 x10e3 /uL 150-45 0 Not Available [facility] ([facility]) [address] [facility], [place], [address], 11/19/2023 08:31:32 11/18/19 24 11/19/2023 CBC WITH DIFFE RENTI AL/PL ATELE T neutrophils 61 % notest ab. Not Available [facility] ([facility]) [address] [place], [address], 11/19/2023 08:31:32 11/18/19 24 11/19/2023 CBC WITH DIFFE RENTI AL/PL ATELE T lymphs 29 % notest ab. Not Available [facility] ([facility]) [address] [place], [address], 11/19/2023 08:31:32 11/18/19 24 11/19/2023 CBC WITH DIFFE RENTI AL/PL ATELE T monocytes 6 % notest ab. Not Available [facility] ([facility]) [address] [place], [address], 11/19/2023 08:31:32 11/18/19 24 11/19/2023 CBC WITH DIFFE RENTI AL/PL ATELE T eos 3 % notest ab. Not Available [facility] ([facility]) [address] [place], [address], 11/19/2023 08:31:32 11/18/19 24 11/19/2023 CBC WITH DIFFE RENTI AL/PL ATELE T basos 1 % notest ab. Not Available [facility] ([facility]) [address] [place], [address], 11/19/2023 08:31:32 11/18/19 24 11/19/2023 CBC WITH DIFFE RENTI AL/PL ATELE T neutrophils (absolute) 4.4 x10e3 /uL 1.4-7. 0 Not Available [facility] ([facility]) [address] [place], [address], 11/19/2023 08:31:32 11/18/19 24 11/19/2023 CBC WITH DIFFE RENTI AL/PL ATELE T lymphs (absolute) 2.1 x10e3 /uL 0.7-3. 1 Not Available [facility] ([facility]) [address] [place], [address], 11/19/2023 08:31:32 11/18/19 24 11/19/2023 CBC WITH DIFFE RENTI AL/PL ATELE T monocytes(ab solute) 0.4 x10e3 /uL 0.1-0. 9 Not Available [facility] ([facility]) [address] [place], [address], 11/19/2023 08:31:32 11/18/19 24 11/19/2023 CBC WITH DIFFE RENTI AL/PL ATELE T eos (absolute) 0.2 x10e3 /uL 0.0-0. 4 Not Available [facility] ([facility]) [address] [facility], [place], [address], 11/19/2023 08:31:32 11/18/19 24 11/19/2023 CBC WITH DIFFE RENTI AL/PL ATELE T baso (absolute) 0.0 x10e3 /uL 0.0-0. 2 Not Available [facility] ([facility]) [address] [facility], [place], [address], 11/19/2023 08:31:32 11/18/19 24 11/19/2023 CBC WITH DIFFE RENTI AL/PL ATELE T immature granulocytes 0 % notest ab. Not Available [facility] ([facility]) [address] [facility], [place], [address], 11/19/2023 08:31:32 11/18/19 24 11/19/2023 CBC WITH DIFFE RENTI AL/PL ATELE T immature grans (abs) 0.0 x10e3 /uL 0.0-0. 1 Not Available [facility] ([facility]) [address] [facility], [place], [address], 11/19/2023 08:31:32 06/24/20 21 06/24/2021 XR, shoul yoli, 2 or more view No observ ation record ed. [address] [facility] [address] [facility], [place], [address], 06/26/2021 09:00:41 06/24/20 21 06/24/2021 XR, shoul yoli, 2 or more view No observ ation record ed. [address] [facility] [address], [place], [address], 06/26/2021 09:00:42 11/30/20 21 06/24/2021 XR, cervi afshan spine , 2 or 3 view No observ ation record ed. [address], [place], [address], 06/26/2021 09:00:42 06/25/20 21 06/24/2021 XR, shoul yoli, 2 or more view No observ ation record ed. [place] [address] [facility] [address], [place], [address], 06/26/2021 09:00:43 Result Notes None recorded. Problems Name Problem SNOMED Code Status Onset Date Resolution Date Notes Provider Name and Address Organization Details Recorded Time Asthma 208665701 Active 2019 DAVID VALENTINE Attn: Mary yanes,[address] [facility], [place], [address], [facility] 2 15:07:50 Mixed anxiety and depressive disorder 400511679 Active 2021 DAVID VALENTINE Attn: Mary yanes,[address] [facility], [place], [address], [place] [facility] 3 14:17:42 Hypothyroidism 55435636 Active 2022 DAVID VALENTINE Attn: Mary yanes,[address] [facility], [place], [address], [place] [facility] 4 10:18:48 Problem Notes None recorded. Procedures Surgical History Date Name Laterality Status Provider Name and Address Organization Details Recorded Time 1 Toenail avulsion completed ARIADNE NUNEZ DPM [address], [place], [address], [place] [facility] 12/27/2020 12:00:43 1 Ulcer Debridement completed ARIADNE NUNEZ DPM [address] [place], [address], [facility] 11/15/2020 17:21:32 1 Toenail avulsion completed ARIADNE NUNEZ DPM [address] [place], [address], [facility] 11/01/2020 18:03:19 9 Date of Last Pap Smear completed Nena Ojeda [place] - [facility] 12/15/2019 10:58:14 extraction of wisdom tooth completed Latoya Lu [place] - [facility] 11/11/2018 15:02:05 Imaging Results Imaging Date Name Status LastModified by Organiz ation Details LastModified Time 06/24/2021 XR, shoulder, 2 or more view completed [address], [address], 06/26/2021 09:00:41 06/24/2021 XR, shoulder, 2 or more view completed [address], [address], 06/26/2021 09:00:42 06/24/2021 XR, cervical spine, 2 or 3 view completed [address], [address], 06/26/2021 09:00:42 06/24/2021 XR, shoulder, 2 or more view completed [address], [address], 06/26/2021 09:00:43 Procedure Notes None recorded. Medical Equipment None Reported. Allergies Allergen ID Allergen Name Allergen Category Reaction Reaction Severity Criticality Documentation Date Start Date Code Code System Note Provider Name and Address Organization Details Recorded Time 066446 Substance with sulfonami de structure and antibacte rial mechanism of action (substanc e) medicatio n Not available Not available Not available 11/11/2018 86085 8003 SNOMED Not Available Not Available Not Available 174354 Cipro medicatio n Not available Not available Not available 11/11/201880471 3 RxNorm Not Available Not Available Not Available Medications Name Sig Start Date Stop Date Status Note LastModified by Organization Details LastModified Time cyclobenzap rine 10 mg tablet TAKE 1 TABLET BY MOUTH EVERY 8 HOURS FOR 7 DAYS NEEDED FOR MUSCLE SPASM 11/17 completed Not Available Not Available Not Available medroxyprog esterone 10 mg tablet TAKE 1 TABLET BY MOUTH DAILY FOR 7 DAYS active Not Available Not Available No t Available prednisone 10 mg tablet 11/01 completed Not Available Not Available Not Available clindamycin HCl 300 mg capsule 11/11 completed Not Available Not Available Not Available ibuprofen 800 mg tablet TAKE 1 TABLET BY MOUTH THREE TIMES DAILY 10/15 completed Not Available Not Available Not Available hydrocodone 5 mg-acetamin ophen 325 mg tablet TAKE 1 TABLET BY MOUTH EVERY 4 HOURS NEEDED FOR PAIN active Not Available Not Available No t Available ondansetron HCl 4 mg tablet 11/01 completed Not Available Not Available Not Available prednisone 20 mg tablet TAKE 2 TABLETS BY MOUTH DAILY FOR 5 DAYS 03/08 completed Not Available Not Available Not Available ciprofloxac in 500 mg tablet 11/11 completed Not Available Not Available Not Available levothyroxi ne 75 mcg tablet TAKE 1 TABLET BY MOUTH DAILY active Not Available Not Available No t Available amoxicillin 875 mg tablet TAKE 1 TABLET BY MOUTH EVERY 12 HOURS FOR 7 DAYS 05/26 completed Not Available Not Available Not Available amitriptyli ne 10 mg tablet TAKE 1 TABLET BY MOUTH EVERY DAY 11/05 completed Not Available Not Available Not Available baclofen 10 mg tablet TAKE 1 TABLET BY MOUTH EVERY DAY AT BEDTIME 10/15 completed Not Available Not Available Not Available levothyroxi ne 50 mcg tablet TAKE 1 TABLET BY MOUTH DAILY active Not Available Not Available No t Available cephalexin 500 mg capsule 11/11 completed Not Available Not Available Not Available buspirone 10 mg tablet Take 1 tablet 3 times a day by oral route as needed. 11/01 completed Not Available Not Available Not Available polymyxin B sulfate 10,000 unit-trimet hoprim 1 mg/mL eye drops INSTILL 1 DROP INTO AFFECTED EYE(S) BY OPHTHALMI C ROUTE EVERY 6 HOURS FOR 5 DAYS 11/17 completed Not Available Not Available Not Available estradiol 2 mg tablet TAKE 1 TABLET BY MOUTH THREE TIMES DAILY active Not Available Not Available No t Available mupirocin 2 % topical ointment 11/11 completed Not Available Not Available Not Available letrozole 2.5 mg tablet TAKE 2 TABLETS BY MOUTH DAYS 5-9 11/17 completed Not Available Not Available Not Available methylpredn isolone 4 mg tablets in a dose pack 11/11 completed Not Available Not Available Not Available albuterol sulfate HFA 90 mcg/actuati on aerosol inhaler INHALE 2 PUFFS BY MOUTH EVERY 4 TO 6 HOURS NEEDED active Not Available Not Available No t Available hydroxyzine HCl 10 mg tablet 11/01 completed Not Available Not Available Not Available sertraline 50 mg tablet TAKE 1 TABLET BY MOUTH EVERY DAY AT BEDTIME FOR DEPRESSIO N active Not Available Not Available No t Available Clomid 50 mg tablet TAKE 2 TABLETS BY MOUTH FOR 5 DAYS 11/17 completed Not Available Not Available Not Available loratadine 10 mg tablet 11/01 completed Not Available Not Available Not Available amoxicillin 875 mg-potassiu m clavulanate 125 mg tablet Take 1 tablet every 12 hours by oral route for 14 days. 05/26 completed Not Available Not Available Not Available medroxyprog esterone 150 mg/mL intramuscul ar syringe 11/11 completed Not Available Not Available Not Available cyclobenzap rine 7.5 mg tablet TAKE 1 TABLET BY MOUTH TWICE DAILY FOR 14 DAYS NEEDED FOR NECK PAIN active Not Available Not Available No t Available Symbicort 160 mcg-4.5 mcg/actuati on HFA aerosol inhaler 11/05 completed Not Available Not Available Not Available Estarylla 0.25 mg-35 mcg tablet TAKE 1 TABLET BY MOUTH DAILY active Not Available Not Available No t Available Breo Ellipta 100 mcg-25 mcg/dose powder for inhalation 11/05 completed Not Available Not Available Not Available Simpesse 0.15 mg-30 mcg (84)/10 mcg(7) tablets,3 month dose pack TAKE 1 TABLET BY MOUTH EVERY DAY 11/05 completed Not Available Not Available Not Available Fluzone Quad (PF) 60 mcg (15 mcg x 4)/0.5 mL IM syringe 02/14 completed Not Available Not Available Not Available Vitals Date Recorded Body height Provider Name an d Address Organization Details Last Updated DateTime 05/26/2021 177.8 cm Jonny Johnson [place] - [facility] 05/26 12:21:40 Date Recorded Body height Body mass index (BMI) Body weight Body temperature Oxygen saturation Oxygen saturation in Arterial blood by Pulse oximetry Heart rate Systolic blood pressure Diastolic blood pressure Provider Name and Address Organization Details Last Updated DateTime 2 177.8 cm 25.1 kg/m2 28080.6 6 g 98.1 [degF] 97.98 % 97.98 % 84 /min 110 mm[Hg] 74 mm[Hg] Verona Crespo MA [facility] 2 14:41:37 Date Recorded Body height Body mass index (BMI) Body weight Respiratory rate Body temperature Oxygen saturation Oxygen saturation in Arterial blood by Pulse oximetry Heart rate Systolic blood pressure Diastolic blood pressure Provider Name and Address Organization Details Last Updated DateTime 3 177.8 cm 22.8 kg/m2 06610.8 9 g 16 /min 98 [degF] 98 % 98 % 80 /min 112 mm[Hg] 72 mm[Hg] Holly Foster MA [facility] 3 14:03:35 Date Recorded Body height Body mass index (BMI) Body weight Oxygen saturation Oxygen saturation in Arterial blood by Pulse oximetry Heart rate Respiratory rate Systolic blood pressure Diastolic blood pressure Provider Name and Address Organization Details Last Updated DateTime 3 177.8 cm 23 kg/m2 93461.4 8 g 98 % 98 % 76 /min 16 /min 110 mm[Hg] 70 mm[Hg] Holly Foster MA [facility] 3 12:40:34 Date Recorded Body height Body mass index (BMI) Body weight Oxygen saturation Oxygen saturation in Arterial blood by Pulse oximetry Heart rate Respiratory rate Systolic blood pressure Diastolic blood pressure Provider Name and Address Organization Details Last Updated DateTime 4 177.8 cm 22.8 kg/m2 56254.1 9 g 97 % 97 % 77 /min 16 /min 111 mm[Hg] 75 mm[Hg] Holly Foster MA [facility] 4 09:54:30 Social History Question Answer Notes LastModified by Organizat ion Details LastModified Time Tobacco Smoking Status Never Smoker WILLIAM Edward, [facility] 11/11/2018 15:01:49 What Is Your Level Of Alcohol Consumption? None Information not available 10/23/2020 Are You Blind Or Do You Have Difficulty Seeing? No Information not available 10/23/2020 What Is Your Level Of Caffeine Consumption? Moderate Information not available 12/15/2019 How Much Tobacco Do You Chew? None Information not available 12/15/2019 In The 14 Days Before Symptom Onset, Have You Had Close Contact With A Laboratory-confir med COVID-19 While That Case Was Ill? No [email or web address] Information not available 10/15/2022 In The 14 Days Before Symptom Onset, Have You Had Close Contact With A Person Who Is Under Investigation For COVID-19 While That Person Was Ill? No Information not available 10/15/2022 Have You Been To An Area Known To Be High Risk For COVID-19? No Information not available 10/23/2020 Are You Deaf Or Do You Have Serious Difficulty Hearing? No Information not available 10/23/2020 What Type Of Diet Are You Following? REGULAR Information not available 02/15/2020 Which Illicit Or Recreational Drugs Have You Used? None Information not available 12/15/2019 Do You Or Have You Ever Used E-cigarettes Or Vape? Never Used Electronic Cigarettes Information not available 12/15/2019 Are There Any Guns Present In Your Home? No Information not available 11/05/2021 Live Alone Or With Others? With Others Information not available 12/15/2019 What Was The Date Of Your Most Recent Tobacco Screening? 11/18/2023 [email or web address] Information not available 11/18/2023 How Many Children Do You Have? 1 Information not available 12/15/2019 Do You Use Your Seat Belt Or Car Seat Routinely? Yes Information not available 11/05/2021 Do You Have Smoke And Carbon Monoxide Detectors In Your Home? Yes Information not available 10/23/2020 Are You Passively Exposed To Smoke? No Information no t available 12/15/2019 Do You Or Have You Ever Used Smokeless Tobacco? Never Used Smokeless Tobacco Information not available 12/15/2019 How Much Tobacco Do You Smoke? No Information not available 12/15/2019 Do You Feel Stressed (tense, Restless, Nervous, Or Anxious, Or Unable To Sleep At Night)? [id number] Information not available 11/05/2021 Do You Use Any Illicit Or Recreational Drugs? No Information not available 11/05/2021 Do You Use Sunscreen Routinely? Yes Information not available 11/05/2021 Has Tobacco Cessation Counseling Been Provided? No Information not available 10/23/2020 On What Date Was Tobacco Cessation Counseling Provided? 11/18/2023 [email or web address] Information not available 11/18/2023 How Many Years Have You Smoked Tobacco? 0 Information not available 02/15/2020 Do You Or Have You Ever Used Any Other Forms Of Tobacco Or Nicotine? No Information not available 10/23/2020 Sex: Unknown Functional Status Question Answer Note LastModified by Organization D etails LastModified Time Are you able to care for yourself? Yes Information n ot available 12/15/2019 What is your exercise level? None Information not available 02/15/2020 Mental Status None recorded. Family History Relationship Description Onset Age of this Age Resolved Age Notes LastModified by Organization Details LastModified Time Father Hypercholest erolemia [email or web address] Not available 10/24 15:01:22 Father Hypertensive disorder [email or web address] Not available 10/24 15:01:29 Medical History Condition Response Coronary Artery Disease N Other N High Blood Pressure N Atrial Fibrillation N Kidney or Bladder Problems N Thyroid Problems N Depression N COPD N Blood Clots N GI Problems N Skin Problems N Eating Disorder N Anemia N Heart Attack ([place]) N Anxiety Disorder N Diabetes N Muscle, Joint, or Bone Problems N Seizures/Epilepsy N Acid Reflux (GERD) N Cancer N Stroke N Asthma Y Allergies Y ADHD N Substance Abuse N High Cholesterol N Hepatitis N Liver Disease N Headaches Y Schizophrenia N Osteoporosis N Heart Failure N Gynecological History Statement/Question Response Flow Moderate Date of LMP 10/25/2023 Menses Monthly N Date of Last Pap Smear 08/26/2018 Duration of Flow (days) 4 Age at Menarche 16 Current Control Method None Age at First Child 27 LMP Approximate Obstetrics History GPAL:G 1 P 1 0 0 1 Type Value Multiple Births 0 Full Term 1 Induced 0 Spontaneous 0 Premature 0 Living 1 Ectopics 0 Total 1 Past Encounters Encounter ID Performer Location Encounter Start Date Encounter Closed Date Diagnosis/Indication Diagnosis SNOMED-CT Code Diagnosis ICD10 Code Diagnosis Note [id number] Elzbieta Calzada MD [facility] [address] [place] [address] 11/11/2018 14:14:17 11/21/2018 09:46:50 Migraine 89527732 G43.909 controlled with OTC NSAIDs History an d physical examination, [facility] 01033942 Z02.0 [id number] Elzbieta Calzada MD [facility] [address] [place] [address] 01/09/2019 09:53:37 01/16/2019 10:26:37 Initial prescription of oral contraception 036769402 Z30.011 Pain in pelvis 47136439 R10.2 [id number] Elzbieta Calzada MD [facility] [address] [facility] [place] [address] 04/21/2019 14:26:38 04/24/2019 09:59:08 Venereal disease screening 843156974 Z11.3 [id number] Elzbieta Calzada MD [facility] [address] [facility] [address] [place] [address] 12/15/2019 09:38:06 12/19/2019 15:49:01 Exercise-induced asthma 45282082 J45.990 Patient advised to have the pharmacist show her how to use her inhalers correctly. Symbicort is to suppress bronchospa sm, ventolin to rescue patient from wheezing and coughing. [id number] Elzbieta Calzada MD [facility] [address] [facility] [place] [address] 02/15/2020 09:43:10 02/19/2020 09:41:48 Anterior chest wall pain 229252672 R07.89 May be pleurisy due to atypical pneumoniti s, could be costochond ritis or autoimmune myalgias, but cannot rule out coronaviru s infection without testing. Viral syndrome 663287947 B34.9 Anxiety 00675204 F41.9 discussed side effects and benefits of using buspirone for anxiety. [id number] Elzbieta Calzada MD [facility] [address] [place] [address] 09/20/2020 08:05:23 09/23/2020 12:12:35 Chronic headache disorder 663680635 G44.89 unilateral or behind eyes. Will try amitriptyl ine for prevention of migraines. Patient states she gets better with excedrin or ibuprofen. Encouraged good hydration and suggested keeping a food diary to look for foods which may be triggering the migraines. [id number] Elzbieta Calzada MD [facility] [address] [place] [address] 10/23/2020 12:36:29 10/25/2020 10:52:25 Ingrowing nail of toe of left foot 4521040939 0113901 L60.0 Patient advised to keep toe clean with soap and water, and not to pick at it--the property underwriter can help but it's a lot easier without adding more infections . [id number] ARIADNE NUNEZ DPM [facility] [address] [place] [address] 11/01/2020 11:11:33 11/05/2020 11:11:24 Cellulitis of toe of left foot 3432162795 0314719 L03.032 Cellulitis and abscess of toe 681234986 L02.612 Ingrowing nail 952432218 L60.0 Pyogenic g ranuloma of skin 92056357 L98.0 Contusion of left great toe 1238397154 9546108 S90.212A Pain in left foot 243281 2599 88639 M79.901 [id number] ARIADNE NUNEZ DPM [facility] [address] [place] [address] 11/15/2020 11:52:03 11/19/2020 16:29:53 Cellulitis of toe of left foot 4664959881 0799571 L03.032 Cellulitis and abscess of toe 381695501 L02.612 Pyogenic g ranuloma of skin 18577196 L98.0 Contusion of left great toe 1552497911 7631353 S90.212D Pain in left foot 090144 0972 17688 M79.672 Ulcer of toe 510004401 L 97.850 [id number] ARIADNE NUNEZ DPM [facility] [address] [place] [address] 12/27/2020 10:23:51 12/30/2020 14:06:38 Cellulitis of toe of left foot 9684542641 9585286 L03.032 Cellulitis and abscess of toe 160560305 L02.612 Ingrowing nail 420753689 L60.0 Pyogenic g ranuloma of skin 02504249 L98.0 Contusion of left great toe 8782554271 9217693 S90.212A Pain in left foot 797910 8376 33873 M79.565 [id number] Nena Baker [facility] [address] [place] [address] 2021 10:18:10 02/18/2021 08:04:08 Acute urinary tract infection 071843274 N39.0 [id number] Carlos Fonseca MD [facility] [address] [place] [address] 05/26/2021 09:44:06 05/28/2021 13:58:47 Pain of left shoulder joint 0586316295 9860608 M25.512 meds Neck pain 61448582 M54.2 meds and x-ray [id number] DAVID VALENTINE [facility] [address] [place] [address] 11/05/2021 14:21:07 11/06/2021 11:18:39 Asthma 540544045 J45.909 uses albuterol PRN with exercising Mixed anxi ety and depressive disorder 132653923 F41.8 on zoloft 50 since 2018depres champ controlled , no concernsPH Q 3 [id number] DAVID VALENTINE [facility] [address] [place] [address] 10/15/2022 13:46:38 10/15/2022 14:20:25 Asthma 164939409 J45.909 uses albuterol PRN with exercising Mixed anxi ety and depressive disorder 912188022 F41.8 10/15/22:PH Q 0refill zoloftpt asked about tapering off zoloft, started taking due to post depression pt unsure if she needs it rec'd to continue to take until hormone levels are regulated 11/05/21:on zoloft 50 since 2018depres champ controlled , no concernsPH Q 3 Hypothyroidism 63002204 E03.9 on levo 50Dr. Mariusz Rosario is managing Body mass index 20-24 - normal 094056552 Z68.22 Throat irritation 525312 007 R07.0 son diagnosed with strep yesterdayw jung up this AM with scratchy throatPEx- oropharynx nl, tonsils not enlarged, no exudates, 2 uvulasreas sured pt [id number] DAVID VALENTINE [facility] [address] [facility] [place] [address] 06/03/2023 12:37:20 06/03/2023 13:13:40 Conjunctivitis of left eye caused by bacteria 2841505674 8533983 B96.89 x1 dayson with pink eyewearing glasses instead of contactsPE x- L sclera and conjunctiv a injectedtr ial abx eye drops Use eye drop as prescribed Wash your hands frequently and try to avoid touching your eyes.Cool Compresses to eyes as needed for comfort.Ma y take Tylenol or ibuprofen as directed on package as needed for pain.Retur n to clinic for any concerns, worsening of symptoms, or no improvemen t in 3 days. [id number] DAVID VALENTINE [facility] [address] [place] [address] 11/18/2023 09:50:56 11/18/2023 10:30:57 Strain of neck muscle 711790739 S16.1XXA x3 monthsL sidedno trauma or injuryshar p/stabbing painmild relief with NSAIDsPEx- FROM C spinetrial flexerilre alma to PT Adult heal th examination 664140346 Z00.00 routine labs Hypothyroidism 74403063 E03.9 on [address]vo [address]Dr. Mariusz Rosario is managingre -check levels today Endometrio sis of ovary 737402286 N80.109 had laparoscop ic surgery 1 mo agodiagnos ed with endometrio sis 3 months ago, per lap- present on ovaries and uterusfoll owing with [place] Mixed anxi ety and depressive disorder 108436106 F41.8 11/18/23: PHQ 0refill zoloft 10/15/22:PH Q 0refill zoloftpt asked about tapering off zoloft, started taking due to post depression pt unsure if she needs it rec'd to continue to take until hormone levels are regulated 11/05/21:on zoloft 50 since 2017depres champ controlled , no concernsPH Q 3 Health Concerns Section Related Observation LastModified by Organization Detai ls LastModified Time None Recorded Concern Status LastModified by Organization Details LastModified Time None Recorded Advance Directives Directive None Recorded Payers Encounter Date Sequence Insurance Name Policy Number Policy Andrade Covered Member ID Andrade Member ID Guarantor Name 05/26/2021 1 [facility] (MEDICAID HMO) [id number] 0003 Nia Lambert [id number] Nia N Lambert 11/05/2021 1 [facility] (MEDICAID HMO) [id number] 0003 Nia Lambert [id number] Nia N Lambert 10/15/2022 1 [facility] (MEDICAID HMO) [id number] 0003 Nia Lambert [id number] Nia N Lambert 06/03/2023 1 [facility] (MEDICAID HMO) [id number] 0003 Nia Lambert [id number] Nia N Lambert 11/18/2023 1 [facility] (MEDICAID HMO) [id number] 0003 Nia Lambert [id number] Nia N Lambert Notes Date Note Type Note Provider Name and Address Organization Details Recorded Time 05/26/2021 text/html needs no refills ... non-vaccinated... left neck/shoulder pain x 2 week constant, but off/on for 2 months.. has 4 y.o. walking without difficulty at home... no h/o shouldetr pain... Carlos Fonseca MD Attn: [address]ing[address] [facility], [place], [address], [facility] 05/26/2021 13:31:34 11/05/2021 text/html Pt presents to establish care. H/o asthma, migraines, and depression. States that she stopped taking amitriptyline due to trying to conceive. Denies recurrence of migraines. Uses albuterol inhaler PRN with exercising. Depression is controlled with zoloft. Denies fever, chills, chest pain, SOB, n/v/d, abd pain, dizziness, weakness, or headaches. DAVID VALENTINE Attn: Accounting[address] [facility], [place], [address], [facility] [place] 11/05/2021 15:11:47 10/15/2022 text/html Pt presents for zoloft refill. Reports she is doing well on medication. She is following with [facility] due to difficulty conceiving. Pt's 5 yr old son tested positive for strep yesterday. She woke up this morning with a scratchy throat. Denies fever, chills, chest pain, SOB, n/v/d, abd pain, dizziness, weakness, or headaches. DAVID VALENTINE Attn: Accounting[address] [facility], [place], [address], [facility] 10/15/2022 14:23:39 06/03/2023 text/html Pt presents with L pink eye x1 day. Reports that her son was diagnosed with pink eye x2 days ago. C/o mild irritation and gunk on L eye lid. Denies blurred vision or vision changes. She has been applying warm compresses. Pt has been wearing glasses instead of her contacts. DAVID VALENTINE Attn: Accounting[address] [facility], [place], [address], [facility] 06/03/2023 14:44:23 11/18/2023 text/html Pt presents for annual exam and L sided neck pain. C/o worsening L sided neck pain x3 months. Describes as sharp and stabbing. No trauma or injury. Pain is better with laying flat, worse with turning head and moving her neck up and down. Mild relief with NSAIDs. Reports that she had imaging awhile ago and it was normal. Denies fever, chills, chest pain, SOB, n/v/d, abd pain, dizziness, weakness, or headaches. DAVID VALENTINE Attn: Accounting[address] , [place], [address], [place] [facility] 11/19/2023 08:34:48 OBGyn Episode Ob Episode Information Episode Created Date Number of Fetuses Patient Bloodtype Patient rh Status Prepregnancy Weight lbs Domestic Partner Domestic Partner Phone Father Name Hog Tender Status 12/15/19 20 1 CLOSED Fetus Data First Name Last Name Admitted to NICU Weight (g) Sex Living Outcome Pediatric Complications Fetus ID Race Codes Race Delivery Type [id number] Job Calculation Initial Job Date Initial Exam Date Initial Exam Provider Initial Ultrasound Date Last Menstrual Period Date Ultra Sound Weeks Gestation 0 Eighteen To Twenty Week Job Update Ultra Sound Date Fundal Height At Umbil Quickening Date Ultra Sound Latest Weeks Gestation Final Job Confirmed By Final Ojb Confirmed Date Final Job Date Ultra Sound Latest Days Gestation 0 0 Menstrual History Last Menstrual Date Menses Monthly On Bcp Conception Prior Menses Frequency Hcg Plus Date Menarche Onset Age Delivery Information Delivery Date Delivery Type Labor Anesthesia Weeks Gestation Incision Type Labor Labor Length Hrs Delivered By Post Complications Tubal Sterilization Discharge Date Comments 8 Discharge Information Feeding Method Contraceptive Method Maternal HG B and HCT Levels
--- NOTE | 2024-09-18 22:05 | PC.NURSE ---
This RN doppled FHTs at this time. FHR ranged from 164-191.
[2024-09-18] MEDS: ONDANSETRON INJ 4 MG/2 ML VIAL IV PUSH (22:17)
--- NOTE | 2024-09-18 22:20 | OBADM ---
This patient, Nia Bañuelos, admitted to the OB room OB Post 113 for observation. Patient/family oriented to hospital policies and general routines including ID bracelet, bed and alarms, visiting hours, pain management, procedures, bathroom and other care routines, personal items, smoking policy, room service/diet, and visiting hours. Patient/Family are encouraged to report perceived risks to care and to ask questions if they do not understand what they are told or what they should do.
[2024-09-18] MEDS: DEXTROSE 5%/LACTATED RINGERS 1,000 ML 150 ML IV CONT (23:04)
[2024-09-18 23:14] LABS: Hematocrit 34.8 % (37.0-47.0); Hemoglobin 12.2 g/dL (12.0-15.0); Mean Corpuscular HGB Conc 35.1 g/dl (32-36); Mean Corpuscular Hemoglobin 32.4 pg (26-34); Mean Corpuscular Volume 92.6 fl (80-100); Mean Platelet Volume 10.7 fl (7.4-10.4); Platelet Count Result 146 k/mm3 (150-375); Red Blood Count 3.76 M/mm3 (4.2-5.4); Red Cell Distribution Width 13.8 % (11.5-14.5); White Blood Count 11.2 K/mm3 (4.5-10.0)
[2024-09-18 23:23] LABS: Alanine Aminotransferase 16 U/L (6-35); Albumin Level 3.8 g/dL (3.5-5.1); Alkaline Phosphatase 109 U/L (38-126); Anion Gap 15 mmol/L (4-12); Aspartate Amino Transferase 24 U/L (14-36); Bilirubin,Total 0.9 mg/dL (0.2-1.3); Blood Urea Nitrogen 10 mg/dL (7-17); Calcium 8.6 mg/dL (8.4-10.2); Carbon Dioxide 16 mmol/L (22-30); Chloride 101 mmol/L (98-107); Estimated CRCL calculation 172 ml/min; Estimated Glomerular Filt Rate > 60; Glucose 89 mg/dL (65-110); Potassium 3.5 mmol/L (3.4-5.0); Sodium 132 mmol/L (137-145)
[2024-09-18 23:51] LABS: Band Neutrophils Percent 7 % (0-6); Eosinophils Absolute Manual 0.11 K/mm3 (0.02-0.50); Eosinophils Percent Manual 1 % (0-4); Lymphocytes Absolute Manual 0.89 K/mm3 (1.1-4.5); Monocytes Absolute Manual 0.11 K/mm3 (0.1-0.90); Monocytes Percent Manual 1 % (3-9); Neutrophils Absolute Manual 10.08 K/mm3 (1.7-7.2); Neutrophils Percent Manual 83 % (46-73); Platelet Estimate Slightly Decreased (Adequate); Total Cells Counted 100
[2024-09-18 23:52] LABS: Microcytosis 1+ (NORMAL); Schistocytes None Seen
[2024-09-19] VITALS (100 sets, daily range): BP systolic 81–123; BP diastolic 37–66; PULSE 76–115; TEMP 37.1; O2SAT 88–100
[2024-09-19 01:28] LABS: Add Urine Microscopic? YES; Appearance Urine Cloudy (Clear); Bacteria Urine Rare /hpf; Bilirubin Urine Negative (Negative); Blood Urine Negative (Negative); Color Urine Yellow (Yellow); Glucose Urine UA Trace mg/dL (Negative); Ketones Urine 2+ mg/dL (Negative); Leukocyte Esterase Ur 3+ LEU/UL (Negative); Nitrate Urine Negative (Negative); Non Pathogenic Casts 0-2; Protein Urine Negative (Negative); RBC Urine 0-2 /hpf (0-2); Squamous Epithelial Cell Urine Few /hpf (Few); Urobilinogen Urine 0.2 mg/dL (<2.0); WBC Urine 21-50 /hpf (0-3); pH Urine 6.5 (5.0-9.0)
[2024-09-19] MEDS: ACETAMINOPHEN 500 MG TABLET 1000 MG PO (02:59)
[2024-09-19] MEDS: cefTRIAXone 1 GM, LIDOCAINE 1% LOCAL INJ 2.1 ML IM (02:59)
[2024-09-19] MEDS: DEXTROSE 5%/LACTATED RINGERS 1,000 ML 150 ML IV CONT (03:02)
[2024-09-19] MEDS: LIDOCAINE 1% LOCAL INJ 20 ML VIAL (03:03)
[2024-09-19 03:08] LABS: Influenza A QL RT-PCR Negative (Negative); Influenza B QL RT-PCR Negative (Negative); RSV RNA, RT-PCR Negative (Negative); SARS-CoV-2 RNA PCR Negative (Negative)
--- NOTE | 2024-09-19 07:54 | PM.OBTRLD ---
OB - Triage/Final Diagnosis Visit Information Date of evaluation: 09/19/24 Reason for evaluation: other (dehydration) Comments/Additional reasons for admission: I have assessed the risk for this patient, Nia Bañuelos, and determined that she would benefit from observation care. Evaluation Laboratory results: Laboratory Tests 09/18/24 09/19/24 09/19/24 23:10 01:15 02:27 WBC 11.2 H RBC 3.76 L Hgb 12.2 Hct 34.8 L MCV 92.6 MCH 32.4 MCHC 35.1 RDW 13.8 Plt Count 146 L MPV 10.7 H Immature Gran % (Auto) Not Reportable Neut % (Auto) Not Reportable Lymph % (Auto) Not Reportable [place] % (Auto) Not Reportable Eos % (Auto) Not Reportable Baso % (Auto) Not Reportable Lymph # (Auto) Not Reportable [place] # (Auto) Not Reportable Eos # (Auto) Not Reportable Baso # (Auto) Not Reportable Abs Immat Gran (auto) Not Reportable Absolute Neuts (auto) Not Reportable Absolute Nucleated RBC Not Reportable Total Counted 100 Neutrophils % (Manual) 83 H Band Neutrophils % 7 H Lymphocytes % (Manual) 8.0 L Monocytes % (Manual) 1 L Eosinophils % (Manual) 1 Nucleated RBC % Not Reportable Abs Neuts (Manual) 10.08 H Abs Lymphs (Manual) 0.89 L Abs Monocytes (Manual) 0.11 Absolute Eos (Manual) 0.11 Platelet Estimate Slightly decreased Microcytosis 1+ Schistocytes None seen Sodium 132 L Potassium 3.5 Chloride 101 Carbon Dioxide 16 L Anion Gap 15 H BUN 10 Creatinine 0.41 L Estim Creat Clear Calc 172 Estimated GFR > 60 Glucose 89 Calcium 8.6 Total Bilirubin 0.9 AST 24 ALT 16 Alkaline Phosphatase 109 Total Protein 7.0 Albumin 3.8 Urine Color Yellow Urine Appearance Cloudy H Urine pH 6.5 Ur Specific [place] 1.010 Urine Protein Negative Urine Glucose (UA) Trace H Urine Ketones 2+ H Ur Blood (Man) Negative Urine Nitrate Negative Urine Bilirubin Negative Urine Urobilinogen 0.2 Leukocyte Esterase Rfl 3+ H Urine RBC 0-2 Urine WBC 21-50 H Ur Squamous Epith Cells Few Urine Bacteria Rare Urine Casts 0-2 Influenza A (RT-PCR) Negative Influenza B (RT-PCR) Negative RSV (RT-PCR) Negative SARS-CoV-2 RNA (RT-PCR) Negative Vital signs: Vital Signs - 24 hr 09/18/24 21:59 09/18/24 22:00 09/18/24 22:04 Temperature Pulse Rate 107 H Blood Pressure 119/71 Pulse Oximetry 97 98 Oxygen Delivery 09/18/24 22:09 09/18/24 22:14 09/18/24 22:19 Temperature Pulse Rate Blood Pressure Pulse Oximetry 98 98 98 Oxygen Delivery 09/18/24 22:20 09/18/24 22:20 09/18/24 22:24 Temperature 97.8 F Pulse Rate Blood Pressure Pulse Oximetry 99 Oxygen Delivery Room Air Room Air 09/18/24 22:29 09/18/24 22:30 09/18/24 22:34 Temperature Pulse Rate 102 H Blood Pressure 111/69 Pulse Oximetry 98 100 Oxygen Delivery 09/18/24 22:39 09/18/24 22:44 09/18/24 22:49 Temperature Pulse Rate Blood Pressure Pulse Oximetry 99 97 100 Oxygen Delivery 09/18/24 22:54 09/18/24 23:00 09/18/24 23:30 Temperature Pulse Rate 92 91 Blood Pressure 112/64 95/51 L Pulse Oximetry 97 Oxygen Delivery 09/18/24 23:44 09/18/24 23:49 09/18/24 23:54 Temperature Pulse Rate Blood Pressure Pulse Oximetry 100 100 99 Oxygen Delivery 09/18/24 23:59 09/19/24 00:00 09/19/24 00:08 Temperature Pulse Rate 97 Blood Pressure 96/51 L Pulse Oximetry 98 100 Oxygen Delivery 09/19/24 00:13 09/19/24 00:18 09/19/24 00:19 Temperature Pulse Rate Blood Pressure Pulse Oximetry 100 100 98 Oxygen Delivery 09/19/24 00:20 09/19/24 00:25 09/19/24 00:30 Temperature Pulse Rate 93 Blood Pressure 106/61 Pulse Oximetry 100 100 99 Oxygen Delivery 09/19/24 00:35 09/19/24 00:40 09/19/24 00:45 Temperature Pulse Rate Blood Pressure Pulse Oximetry 99 100 99 Oxygen Delivery 09/19/24 00:50 09/19/24 00:55 09/19/24 01:00 Temperature Pulse Rate 100 Blood Pressure 123/66 Pulse Oximetry 100 98 100 Oxygen Delivery 09/19/24 01:05 09/19/24 01:06 09/19/24 01:11 Temperature Pulse Rate Blood Pressure Pulse Oximetry 100 100 100 Oxygen Delivery 09/19/24 01:16 09/19/24 01:21 09/19/24 01:26 Temperature Pulse Rate Blood Pressure Pulse Oximetry 100 98 98 Oxygen Delivery 09/19/24 01:30 09/19/24 01:31 09/19/24 01:36 Temperature Pulse Rate 94 Blood Pressure 84/45 L Pulse Oximetry 98 99 Oxygen Delivery 09/19/24 01:41 09/19/24 01:46 09/19/24 01:51 Temperature Pulse Rate Blood Pressure Pulse Oximetry 98 98 98 Oxygen Delivery 09/19/24 01:56 09/19/24 02:00 09/19/24 02:01 Temperature Pulse Rate 100 Blood Pressure 82/40 L Pulse Oximetry 98 100 Oxygen Delivery 09/19/24 02:06 09/19/24 02:11 09/19/24 02:16 Temperature Pulse Rate Blood Pressure Pulse Oximetry 99 100 100 Oxygen Delivery 09/19/24 02:23 09/19/24 02:28 09/19/24 02:30 Temperature Pulse Rate 99 Blood Pressure 98/48 L Pulse Oximetry 100 100 Oxygen Delivery 09/19/24 02:33 09/19/24 02:38 09/19/24 02:43 Temperature Pulse Rate Blood Pressure Pulse Oximetry 99 98 98 Oxygen Delivery 09/19/24 02:48 09/19/24 02:53 09/19/24 02:55 Temperature Pulse Rate Blood Pressure Pulse Oximetry 98 90 88 L Oxygen Delivery 09/19/24 02:57 09/19/24 03:00 09/19/24 03:02 Temperature 98.8 F Pulse Rate 100 Blood Pressure 97/45 L Pulse Oximetry 98 97 Oxygen Delivery 09/19/24 03:07 09/19/24 03:19 09/19/24 03:24 Temperature Pulse Rate Blood Pressure Pulse Oximetry 97 99 100 Oxygen Delivery 09/19/24 03:29 09/19/24 03:30 09/19/24 03:34 Temperature Pulse Rate 97 Blood Pressure 85/37 L Pulse Oximetry 99 99 Oxygen Delivery 09/19/24 03:39 09/19/24 03:44 09/19/24 03:49 Temperature Pulse Rate Blood Pressure Pulse Oximetry 98 100 98 Oxygen Delivery 09/19/24 03:54 09/19/24 03:59 09/19/24 04:00 Temperature Pulse Rate 91 Blood Pressure 94/51 L Pulse Oximetry 98 98 Oxygen Delivery 09/19/24 04:04 09/19/24 04:09 09/19/24 04:14 Temperature Pulse Rate Blood Pressure Pulse Oximetry 98 98 97 Oxygen Delivery 09/19/24 04:19 09/19/24 04:24 09/19/24 04:29 Temperature Pulse Rate Blood Pressure Pulse Oximetry 98 98 100 Oxygen Delivery 09/19/24 04:30 09/19/24 04:34 09/19/24 04:39 Temperature Pulse Rate 87 Blood Pressure 91/39 L Pulse Oximetry 99 99 Oxygen Delivery 09/19/24 04:44 09/19/24 04:49 09/19/24 04:54 Temperature Pulse Rate Blood Pressure Pulse Oximetry 99 100 100 Oxygen Delivery 09/19/24 04:59 09/19/24 05:00 09/19/24 05:09 Temperature Pulse Rate 88 Blood Pressure 86/43 L Pulse Oximetry 100 100 Oxygen Delivery 09/19/24 05:11 09/19/24 05:16 09/19/24 05:21 Temperature Pulse Rate Blood Pressure Pulse Oximetry 100 99 98 Oxygen Delivery 09/19/24 05:26 09/19/24 05:31 09/19/24 05:32 Temperature Pulse Rate 81 Blood Pressure 109/64 Pulse Oximetry 99 99 Oxygen Delivery 09/19/24 05:32 09/19/24 05:37 09/19/24 05:42 Temperature Pulse Rate Blood Pressure Pulse Oximetry 99 100 100 Oxygen Delivery 09/19/24 05:47 09/19/24 05:52 09/19/24 05:57 Temperature Pulse Rate Blood Pressure Pulse Oximetry 100 100 100 Oxygen Delivery 09/19/24 06:00 09/19/24 06:02 09/19/24 06:07 Temperature Pulse Rate 80 Blood Pressure 81/42 L Pulse Oximetry 99 99 Oxygen Delivery 09/19/24 06:12 09/19/24 06:17 09/19/24 06:22 Temperature Pulse Rate Blood Pressure Pulse Oximetry 98 98 99 Oxygen Delivery 09/19/24 06:27 09/19/24 06:30 09/19/24 06:32 Temperature Pulse Rate 88 Blood Pressure 108/59 L Pulse Oximetry 100 100 Oxygen Delivery 09/19/24 06:37 09/19/24 06:55 09/19/24 07:00 Temperature Pulse Rate 89 Blood Pressure 107/60 Pulse Oximetry 100 100 100 Oxygen Delivery 09/19/24 07:05 09/19/24 07:10 09/19/24 07:15 Temperature Pulse Rate Blood Pressure Pulse Oximetry 100 100 100 Oxygen Delivery 09/19/24 07:20 09/19/24 07:30 Temperature Pulse Rate 91 Blood Pressure 108/60 Pulse Oximetry 100 Oxygen Delivery
== END 2024-09-19 08:30 | disposition home or self-care (01) ==
PROVIDERS: Admitting Provider Obstetrics & Gynecology; PCP Physician Assistant; Visit Provider Obstetrics & Gynecology
DX: O99.282 Endocrine, nutritional and metabolic diseases complicating pregnancy, second trimester (principal); E86.0 Dehydration; Z3A.20 20 weeks gestation of pregnancy
CPT/HCPCS: 36415; 80053; 81001; 85025; 87086; 87637; 96361; 96372; 96374; A9270; G0378; G0379; J0696; J2003; J2405; J7121

== ENCOUNTER 2025-01-31 05:02 | Inpatient (IN) | payer BC, SELFPAY ==
[2025-01-31] VITALS (263 sets, daily range): BP systolic 101–143; BP diastolic 46–82; PULSE 60–99; RESP 6; TEMP 36.2–37.3; O2SAT 89–100; BMI 28.3
--- OUTSIDE RECORDS SUMMARY | 2025-01-31 05:11 | XMS_ITS | Clinical Summary ---
Author Organization [facility] [employer] Address [address] [place] [address] Care Team Providers Care Tea And Spice Supervisor Name Role Phone Unknown, Provider Primary Care Provider Unavaila ble Source Comments [facility],non-owned Affiliates and Associated Physician Practices is amultiple site organization consisting of ambulatory clinics and hospital sitesin [place], [place], [place]. This disclosure is being madepursuant to the Care Everywhere program and may not contain all information available regarding this patient. Last updated 18.[facility] [employer] Allergies Active Allergy Reactions Criticality Noted Date Comments Sulfa Drugs 05/22/2016 Medications * Be aware that medications may not be up to date on this document. Alwaysverify current medications with the patient. No known [...] Hx Hypercholesterolemia Neg Hx Hypertension Neg Hx NV<55(male) Neg Hx NV<65(female) Neg Hx Mental Health Neg Hx Migraine Neg Hx Osteoporosis Neg Hx Seizures Neg Hx Sudd. <30 Neg Hx Thyroid Disease Neg Hx Ulcerative Colitis Neg Hx Social History Tobacco Use Types Packs/Day Years Used Date Smoking Tobacco: Never Comments Unknown Sex and Gender Information Value Date Recorded Sex Assigned at Not on file Legal Sex Female 2:23 PM CDT Gender Identity Not on file Sexual Orientation [...] 2:54 PM CDT Height 177.8 cm (5' 10) 05/22/2016 2:54 PM CDT Body Mass Index 20.23 05/22/2016 2:54 PM CDT Plan of Treatment Health Maintenance Due Date Last Done Comments HIV SCREENING 2006 HEPATITIS C SCREENING 02/12/2009 DTAP/TDAP/TD VACCINES (1 - Tdap) 2010 HEPATITIS B VACCINE (1 of 3 - 19+ 3-dose series) 2010 PAP SMEAR 02/18/2012 COVID-19 VACCINE (1 - 2023-2 5 season) 2024 DEPRESSION SCREENING 07/26/2024 INFLUENZA VACCINE (Season Ended) 2025 ZOSTER VACCINE (1 of 2) 2041 HIB VACCINE Aged Out No longer eligi ble based on patient's age to complete this topic HPV VACCINE Aged Out No longer eligi ble based on patient's age to complete this topic MENINGOCOCCAL (Group B) VACC INE SHARED DECISION-MAKING Aged Out No longer eligibl e based on patient's age to complete this topic MENINGOCOCCAL GROUPS A/C/Y/W VACCINE Aged Out No longer eligible b ased on patient's age to complete this topic PNEUMOCOCCAL VACCINE Aged Out No long er eligible based on patient's age to complete this topic Insurance [facility] SEL[employer] PAY NO INSURANCE Member Subscriber Plan / Payer (Ef fective for All Dates) Name:Yolanda Churchill Member ID:Not on file Relation to Subscriber:Not on file Name:YOLANDA CHURCHILL Subscriber ID:Not on file Address: [address] [place] [phone] Payer ID:Not on file Group ID:Not on file Type:Self Pay Address: [place], [place] [facility] SELF PAY NO INSURANCE Member Subscriber Plan / Payer (Ef fective for All Dates) Name:Bipin Churchilli Member ID:Not on file Relation to Subscriber:Not on file Name:YOLANDA CHURCHILL Subscriber ID:Not on file Address: [address] [place] [address] Payer ID:Not on file Group ID:Not on file Type:Self Pay Address: [place], [place] [facility] SEL[employer] PA[employer] NO INSURANCE Member Subscriber Plan / Payer (Ef fective for All Dates) Name:Yolanda Churchill Member ID:Not on file Relation to Subscriber:Not on file Name:YOLANDA CHURCHILL Subscriber ID:Not on file Address: [address] [place] [phone] Payer ID:Not on file Group ID:Not on file Type:Self Pay Address: [place], [place] Care Teams Tea And Spice Supervisor Relationship Specialty Start Date End Date Unknown, Provider PCP - General 05/22/16
--- OUTSIDE RECORDS SUMMARY | 2025-01-31 05:11 | XMS_ITS | Referral Summary ---
Author Organization [address] Address [address] [place] [id number] Care Team Providers Care Information Systems Project Manager Name Role Phone Annie Vogt Primary Care Provider [phone] Allergies Active Allergy Reactions Criticality Noted Date [...] on file Legal Sex Female 8:50 PM [employer] Gender Identity Not on file Sexual Orientation [...] 12:14 PM CDT Height 177.8 cm (5' 10) 04/23/2024 12:14 PM CDT Body Mass Index 23.39 04/23/2024 12:14 PM CDT Plan of Treatment Not on file Insurance [employer] [place] Care Teams Information Systems Project Manager Relationship Specialty Start Date End Date Annie Vogt PA [address] [place] [phone] PCP - General Physician Psychiatric Secretary 04/21/24
--- OUTSIDE RECORDS SUMMARY | 2025-01-31 05:11 | XMS_ITS | Data Portability ---
Author Organization [facility] Juan Perea Address [address] / [place] [address] Care Team Providers Care Meter Shop Supervisor Name Role Phone CALZADAELZBIETA Primary Care Provider Assessment Encounter Date Assessment [...] Organization Details Last Modified Time Details Appointments None recorded. Lab TSH + free T4, serum 2023 024 [place] [facility], [address], [place], [address], 4 08:31:30 CMP, serum or plasma 2023 024 [facility] [facility], [address], [place], [address], 4 08:31:31 lipid panel, serum 2023 024 [facility], [address], [place], [address], 4 08:31:31 CBC w/ auto diff 2023 024 [place] [facility], [address], [place], [address], 4 08:31:32 HbA1c (hemoglobin A1c), blood 2023 024 [place] [facility], [address], [place], [address], 4 08:31:32 Referral physical therapist referral 2023 024 [facility], [address], [place], [address], 4 10:40:56 Procedures None recorded. Surgeries None recorded. Imaging None recorded. Medication Orders sertraline 50 mg tablet 2024 025 [facility] #[id number], [address], [place], [id number], 5 12:09:53 cyclobenzap rine 7.5 mg tablet 2023 025 [facility] #[id number], [address], [place], [id number], 5 12:03:33 sertraline 50 mg tablet 2023 024 [facility] #[id number], [address], [place], [id number], 4 10:25:00 polymyxin B sulfate 10,000 unit-trimet hoprim 1 mg/mL eye drops 2022 023 [facility] #[id number], [address], [place], [id number], 4 10:08:14 sertraline 50 mg tablet 2022 023 [facility] #30633, [address], [place], [id number], 3 14:18:59 Patient TargetsNo targets recorded. Patient InstructionsNo instructions recorded. Reason for Referral Physical Therapist Referral for Strain of neck muscle L neck pain x3 months, no trauma or injury Referring Physician: Annie Vogt, Family Medicine, Encounter Date: 11/18/2023 Results Created Date Observation Date Name Description Value Unit Range Abnormal Flag Note LastModifiedBy Organization Detail LastModifiedTime 11/18/19 24 11/19/2023 TSH+F REE T4 TSH 2.390 uIU/m L 0.450- 4.500 Not Available [facility] ([facility]) [address] [place], [address], 11/19/2023 08:31:30 11/18/19 24 11/19/2023 TSH+F REE T4 T4,free(dire ct) 1.26 NG/dL 0.82-1 .77 Not Available [facility] ([facility]) [address] [place], [address], 11/19/2023 08:31:30 11/18/19 24 11/19/2023 LIPID PANEL WITH LDL/H DL RATIO cholesterol, total 198 mg/dL 100-19 9 Not Available [facility] ([facility]) [address] [place], [address], 11/19/2023 08:31:30 11/18/19 24 11/19/2023 LIPID PANEL WITH LDL/H DL RATIO triglyceride s 74 mg/dL 0-149 Not Available [facility] ([facility]) [address] [place], [address], 11/19/2023 08:31:30 11/18/19 24 11/19/2023 LIPID PANEL WITH LDL/H DL RATIO HDL cholesterol 50 mg/dL >39 Not Available [facility] ([facility]) [address] [place], [address], 11/19/2023 08:31:30 11/18/19 24 11/19/2023 LIPID PANEL WITH LDL/H DL RATIO VLDL cholesterol afshan 13 mg/dL 5-40 Not Available [facility] ([facility]) [address] [facility], [place], [address], 11/19/2023 08:31:30 11/18/19 24 11/19/2023 LIPID PANEL WITH LDL/H DL RATIO LDL chol calc ([facility]) 135 mg/dL 0-99 above high normal Not Available [facility] ([facility]) [address] [place], [address], 11/19/2023 08:31:30 11/18/19 24 11/19/2023 LIPID PANEL WITH LDL/H DL RATIO LDL/HDL ratio 2.7 ratio 0.0-3. 2 LDL/H DL Ratio Men Women 1/2 Avg.R isk 1.0 1.5 Avg.R isk 3.6 3.2 2X Avg.R isk 6.2 5.0 3X Avg.R isk 8.0 6.1 Not Available [facility] ([facility]) [address] [place], [address], 11/19/2023 08:31:30 11/18/19 24 11/19/2023 COMP. METAB OLIC PANEL (14) glucose 90 mg/dL 70-99 Not Available [facility] ([facility]) [address] [place], [address], 11/19/2023 08:31:31 11/18/19 24 11/19/2023 COMP. METAB OLIC PANEL (14) BUN 17 mg/dL 6-20 Not Available [facility] ([facility]) [address] [place], [address], 11/19/2023 08:31:31 11/18/19 24 11/19/2023 COMP. METAB OLIC PANEL (14) creatinine 0.73 mg/dL 0.57-1 .00 Not Available [facility] ([facility]) [address] [place], [address], 11/19/2023 08:31:31 11/18/19 24 11/19/2023 COMP. METAB OLIC PANEL (14) eGFR 112 mL/mi n/1.7 3 >59 Not Available [facility] ([facility]) [address] [place], [address], 11/19/2023 08:31:31 11/18/19 24 11/19/2023 COMP. METAB OLIC PANEL (14) BUN/creatini ne ratio 23 9-23 Not Available [facility] ([facility]) [address] [place], [address], 11/19/2023 08:31:31 11/18/19 24 11/19/2023 COMP. METAB OLIC PANEL (14) sodium 139 mmol/ L 134-14 4 Not Available [facility] ([facility]) [address] [place], [address], 11/19/2023 08:31:31 11/18/19 24 11/19/2023 COMP. METAB OLIC PANEL (14) potassium 4.6 mmol/ L 3.5-5. 2 Not Available [facility] ([facility]) [address] [place], [address], 11/19/2023 08:31:31 11/18/19 24 11/19/2023 COMP. METAB OLIC PANEL (14) chloride 101 mmol/ L 96-106 Not Available [facility] ([facility]) [address] [facility] [place] [place], [address], 11/19/2023 08:31:31 11/18/19 24 11/19/2023 COMP. METAB OLIC PANEL (14) carbon dioxide, total 21 mmol/ L 20-29 Not Available [facility] ([facility]) [address] [facility], [place], [address], 11/19/2023 08:31:31 11/18/19 24 11/19/2023 COMP. METAB OLIC PANEL (14) calcium 9.3 mg/dL 8.7-10 .2 Not Available [facility] ([facility]) [address] [facility], [place], [address], 11/19/2023 08:31:31 11/18/19 24 11/19/2023 COMP. METAB OLIC PANEL (14) protein, total 7.5 g/dL 6.0-8. 5 Not Available [facility] ([facility]) [address] [facility] [place], [address], 11/19/2023 08:31:31 11/18/19 24 11/19/2023 COMP. METAB OLIC PANEL (14) albumin 4.6 g/dL 3.9-4. 9 Not Available [facility] ([facility]) [address] [facility], [place], [address], 11/19/2023 08:31:31 11/18/19 24 11/19/2023 COMP. METAB OLIC PANEL (14) globulin, total 2.9 g/dL 1.5-4. 5 Not Available [facility] ([facility]) [address] [facility] [place], [address], 11/19/2023 08:31:31 11/18/19 24 11/19/2023 COMP. METAB OLIC PANEL (14) A/G ratio 1.6 1.2-2. 2 Not Available [facility] ([facility]) [address] [facility] [place], [address], 11/19/2023 08:31:31 11/18/19 24 11/19/2023 COMP. METAB OLIC PANEL (14) bilirubin, total 0.4 mg/dL 0.0-1. 2 Not Available [facility] ([facility]) [address] [facility] [place], [address], 11/19/2023 08:31:31 11/18/19 24 11/19/2023 COMP. METAB OLIC PANEL (14) alkaline phosphatase 93 IU/L 44-121 Not Available [facility] ([facility]) [address] [facility], [place], [address], 11/19/2023 08:31:31 11/18/19 24 11/19/2023 COMP. METAB OLIC PANEL (14) AST (SGOT) 17 IU/L 0-40 Not Available [facility] ([facility]) [address] [facility], [place], [address], 11/19/2023 08:31:31 11/18/19 24 11/19/2023 COMP. METAB OLIC PANEL (14) ALT (SGPT) 9 IU/L 0-32 Not Available [facility] ([facility]) [address] [facility], [place], [address], 11/19/2023 08:31:31 11/18/19 24 11/19/2023 HEMOG LOBIN A1C hemoglobin A1C 5.1 % 4.8-5. 6 Predi abete s: 5.7 - 6.4 Diabe sandro: >6.4 Glyce ivan contr ol for adult s with diabe sandro: <7.0 Not Available [facility] ([facility]) [address] [facility], [place], [address], 11/19/2023 08:31:32 11/18/19 24 11/19/2023 CBC WITH DIFFE RENTI AL/PL ATELE T WBC 7.2 x10e3 /uL 3.4-10 .8 Not Available [facility] ([facility]) [address] [facility], [place], [address], 11/19/2023 08:31:32 11/18/19 24 11/19/2023 CBC WITH DIFFE RENTI AL/PL ATELE T RBC 4.07 x10e6 /uL 3.77-5 .28 Not Available [facility] ([facility]) [address] [facility], [place], [address], 11/19/2023 08:31:32 11/18/19 24 11/19/2023 CBC WITH DIFFE RENTI AL/PL ATELE T hemoglobin 12.6 g/dL 11.1-1 5.9 Not Available [facility] ([facility]) [address] [facility], [place], [address], 11/19/2023 08:31:32 11/18/19 24 11/19/2023 CBC WITH DIFFE RENTI AL/PL ATELE T hematocrit 37.7 % 34.0-4 6.6 Not Available [facility] ([facility]) [address] [facility], [place], [address], 11/19/2023 08:31:32 11/18/19 24 11/19/2023 CBC WITH DIFFE RENTI AL/PL ATELE T MCV 93 fL 79-97 Not Available [facility] ([facility]) [address] [facility], [place], [address], 11/19/2023 08:31:32 11/18/19 24 11/19/2023 CBC WITH DIFFE RENTI AL/PL ATELE T MCH 31.0 pg 26.6-3 3.0 Not Available [facility] ([facility]) [address] [facility], [place], [address], 11/19/2023 08:31:32 11/18/19 24 11/19/2023 CBC WITH DIFFE RENTI AL/PL ATELE T MCHC 33.4 g/dL 31.5-3 5.7 Not Available [facility] ([facility]) [address] [facility], [place], [address], 11/19/2023 08:31:32 11/18/19 24 11/19/2023 CBC WITH DIFFE RENTI AL/PL ATELE T RDW 12.4 % 11.7-1 5.4 Not Available [facility] ([facility]) [address], [place], [address], 11/19/2023 08:31:32 11/18/19 24 11/19/2023 CBC WITH DIFFE RENTI AL/PL ATELE T platelets 231 x10e3 /uL 150-45 0 Not Available [facility] ([facility]) [address] [facility], [place], [address], 11/19/2023 08:31:32 11/18/19 24 11/19/2023 CBC WITH DIFFE RENTI AL/PL ATELE T neutrophils 61 % notest ab. Not Available [facility] ([facility]) [address] [facility], [place], [address], 11/19/2023 08:31:32 11/18/19 24 11/19/2023 CBC WITH DIFFE RENTI AL/PL ATELE T lymphs 29 % notest ab. Not Available [facility] ([facility]) [address] [facility], [place], [address], 11/19/2023 08:31:32 11/18/19 24 11/19/2023 CBC WITH DIFFE RENTI AL/PL ATELE T monocytes 6 % notest ab. Not Available [facility] ([facility]) [address] [facility], [place], [address], 11/19/2023 08:31:32 11/18/19 24 11/19/2023 CBC WITH DIFFE RENTI AL/PL ATELE T eos 3 % notest ab. Not Available [facility] ([facility]) [address] [facility], [place], [address], 11/19/2023 08:31:32 11/18/19 24 11/19/2023 CBC WITH DIFFE RENTI AL/PL ATELE T basos 1 % notest ab. Not Available [facility] ([facility]) [address] [facility], [place], [address], 11/19/2023 08:31:32 11/18/19 24 11/19/2023 CBC WITH DIFFE RENTI AL/PL ATELE T neutrophils (absolute) 4.4 x10e3 /uL 1.4-7. 0 Not Available [facility] ([facility]) [address] [place], [address], 11/19/2023 08:31:32 11/18/19 24 11/19/2023 CBC WITH DIFFE RENTI AL/PL ATELE T lymphs (absolute) 2.1 x10e3 /uL 0.7-3. 1 Not Available [facility] ([facility]) [address] [place], [address], 11/19/2023 08:31:32 11/18/19 24 11/19/2023 CBC WITH DIFFE RENTI AL/PL ATELE T monocytes(ab solute) 0.4 x10e3 /uL 0.1-0. 9 Not Available [facility] ([facility]) [address] [place], [address], 11/19/2023 08:31:32 11/18/19 24 11/19/2023 CBC WITH DIFFE RENTI AL/PL ATELE T eos (absolute) 0.2 x10e3 /uL 0.0-0. 4 Not Available [facility] ([facility]) [address] [place], [address], 11/19/2023 08:31:32 11/18/19 24 11/19/2023 CBC WITH DIFFE RENTI AL/PL ATELE T baso (absolute) 0.0 x10e3 /uL 0.0-0. 2 Not Available [facility] ([facility]) [address] [place], [address], 11/19/2023 08:31:32 11/18/19 24 11/19/2023 CBC WITH DIFFE RENTI AL/PL ATELE T immature granulocytes 0 % notest ab. Not Available [facility] ([facility]) [address] [place], [address], 11/19/2023 08:31:32 11/18/1911/19/2023 CBC WITH DIFFE SHELLEY AL/PL ATELE T immature grans (abs) 0.0 x10e3 /uL 0.0-0. 1 Not Available [facility] ([facility]) [address] [facility], [place], [address], 11/19/2023 08:31:32 Result Notes None recorded. Problems Name Problem SNOMED Code Status Onset Date Resolution Date Notes Provider Name and Address Organization Details Recorded Time Asthma 276964245 Active 2019 DAVID VALENTINE Attn: Mary yanes,[address] [facility], [place], [address], [place] [facility] 2 15:07:50 Mixed anxiety and depressive disorder 674580372 Active 2021 DAVID VALENTINE Attn: Mary yanes,[address] [facility], [place], [address], [place] [facility] 3 14:17:42 Hypothyroidism 52034842 Active 2022 DAVID VALENTINE Attn: Mary yanes,[address] [facility], [place], [address], [place] [facility] 4 10:18:48 Problem Notes None recorded. Procedures Surgical History Date Name Laterality Status Provider Name and Address Organization Details Recorded Time 1 Toenail avulsion completed ARIADNE NUNEZ DPM [address], [place], [address], [place] [facility] 12/27/2020 12:00:43 1 Ulcer Debridement [place], [address], [place] [facility] 11/15/2020 17:21:32 1 Toenail avulsion [place], [address], [place] [facility] 11/01/2020 18:03:19 9 Date of Last Pap Smear completed Nena Ojeda MA [facility] 12/15/2019 10:58:14 extraction of wisdom tooth completed Latoya Lu MA [facility] 11/11/2018 15:02:05 Imaging Results None recorded. Procedure Notes None recorded. Medical Equipment None Reported. Allergies Allergen ID Allergen Name Allergen Category Reaction Reaction Severity Criticality Documentation Date Start Date Code Code System Note Provider Name and Address Organization Details Recorded Time 360239 Substance with sulfonami de structure and antibacte rial mechanism of action (substanc e) medicatio n Not available Not available Not available 11/11/2018 08285 8003 SNOMED WILLIAM Edward [facility] 9 14:59:39 176132 Cipro medicatio n Not available Not available Not available 11/11/201895928 3 RxNorm WILLIAM Edward [facility] 9 14:59:46 Medications Name Sig Start Date Stop Date Status Note LastModified by Organization Details LastModified Time cyclobenzap rine 10 mg tablet TAKE 1 TABLET BY MOUTH EVERY 8 HOURS FOR 7 DAYS NEEDED FOR MUSCLE SPASM 11/17 completed Not Available Not Available Not Available medroxyprog esterone 10 mg tablet TAKE 1 TABLET BY MOUTH DAILY FOR 7 DAYS 10/06 completed Not Available Not Available Not Available prednisone 10 mg tablet 11/01 completed [...] MOUTH EVERY 4 HOURS NEEDED FOR PAIN 10/06 completed Not Available Not Available Not Available ondansetron HCl 4 mg tablet 11/01 [...] tablet TAKE 1 TABLET BY MOUTH DAILY 10/06 completed Not Available Not Available Not Available cephalexin 500 mg capsule TAKE ONE CAPSULE BY MOUTH TWICE DAILY FOR 5 DAYS active Not Available Not Available No t Available buspirone 10 mg tablet Take 1 [...] 1 TABLET BY MOUTH THREE TIMES DAILY 10/06 completed Not Available Not Available Not Available mupirocin 2 % topical ointment 11/11 [...] completed Not Available Not Available Not Available ondansetron 4 mg disintegrat ing tablet DISSOLVE 1 TABLET ON THE TONGUE EVERY 6 HOURS NEEDED FOR NAUSEA OR VOMITING 10/06 completed Not Available Not Available Not Available [...] FOR 14 DAYS NEEDED FOR NECK PAIN 10/06 completed Not Available Not Available Not Available Symbicort 160 mcg-4.5 mcg/actuati on HFA aerosol inhaler 11/05 completed Not Available Not Available Not Available Estarylla 0.25 mg-0.035 mg tablet TAKE 1 TABLET BY MOUTH DAILY 10/06 completed Not Available Not Available Not Available Breo Ellipta 100 mcg-25 mcg/dose powder [...] Not Available Vitals Date Recorded Body height Body mass index (BMI) Body weight Oxygen saturation Oxygen saturation in Arterial blood by Pulse oximetry Heart rate Respiratory rate Systolic And Diastolic Provider Name and Address Organization Details Last Updated DateTime 5 177.8 cm 25.2 kg/m2 21262.4 6 g 100 % 100 % 95 /min 16 /min 123/78 mm[Hg] Melissa Lopez [place] [facility] 5 11:50:33 Date Recorded Body height Body mass index (BMI) Body weight Respiratory rate Body temperature Oxygen saturation Oxygen saturation in Arterial blood by Pulse oximetry Heart rate Systolic And Diastolic Provider Name and Address Organization Details Last Updated DateTime 3 177.8 cm 22.8 kg/m2 02835.8 9 g 16 /min 98 [degF] 98 % 98 % 80 /min 112/72 mm[Hg] Holly Foster [place] [facility] 3 14:03:35 Date Recorded Body height Body mass index (BMI) Body weight Body temperature Oxygen saturation Oxygen saturation in Arterial blood by Pulse oximetry Heart rate Systolic And Diastolic Provider Name and Address Organization Details Last Updated DateTime 2 177.8 cm 25.1 kg/m2 14173.6 6 g 98.1 [degF] 97.98 % 97.98 % 84 /min 110/74 mm[Hg] Verona Crespo MA [facility] 2 14:41:37 Date Recorded Body height Body mass index (BMI) Body weight Oxygen saturation Oxygen saturation in Arterial blood by Pulse oximetry Heart rate Respiratory rate Systolic And Diastolic Provider Name and Address Organization Details Last Updated DateTime 4 177.8 cm 22.8 kg/m2 11721.1 9 g 97 % 97 % 77 /min 16 /min 111/75 mm[Hg] Holly Foster MA [facility] 4 09:54:30 Date Recorded Body height Body mass index (BMI) Body weight Oxygen saturation Oxygen saturation in Arterial blood by Pulse oximetry Heart rate Respiratory rate Systolic And Diastolic Provider Name and Address Organization Details Last Updated DateTime 3 177.8 cm 23 kg/m2 50931.4 8 g 98 % 98 % 76 /min 16 /min 110/70 mm[Hg] Holly Foster MA [facility] 3 12:40:34 Social History Question Answer Notes LastModified by Organizat ion Details LastModified Time Tobacco Smoking Status Never Smoker Latoya Lu [facility], [facility] 11/11/2018 15:01:49 Are You Blind Or Do You Have Difficulty Seeing? No Information n ot available 10/23/2020 What Is Your Level Of Caffeine Consumption? Moderate Information not available 12/15/2019 How Much Tobacco Do You Chew? None Information not available 12/15/2019 In The 14 Days Before Symptom Onset, Have You Had Close Contact With A Laboratory-confirm ed COVID-19 While That Case Was Ill? No [email or web address] Information n ot available 10/15/2022 In The 14 Days Before Symptom Onset, Have You Had Close Contact With A Person Who Is Under Investigation For COVID-19 While That Person Was Ill? No [email or web address] Information not available 10/15/2022 Have You Been To An Area Known To Be High Risk For COVID-19? No Information not available 10/23/2020 Are You Deaf Or Do You Have Serious Difficulty Hearing? No Information not available 10/23/2020 What Type Of Diet Are You Following? REGULAR Information n ot available 02/15/2020 Which Illicit Or Recreational Drugs Have You Used? None Information not available 12/15/2019 Are There Any Guns Present In Your Home? No Information not available 11/05/2021 Live Alone Or With Others? With Others Information not available 12/15/2019 What Was The Date Of Your Most Recent Tobacco Screening? 10/06/2024 Information not available 10/06/2024 How Many Children Do You Have? 1 Information not available 12/15/2019 Do You Use Your Seat Belt Or Car Seat Routinely? Yes Information not available 11/05/2021 Do You Have Smoke And Carbon Monoxide Detectors In Your Home? Yes Information not available 10/23/2020 Are You Passively Exposed To Smoke? No Information no t available 12/15/2019 How Much Tobacco Do You Smoke? No Information not available 12/15/2019 Do You Use Sunscreen Routinely? Yes Information not available 11/05/2021 Has Tobacco Cessation Counseling Been Provided? No Information not available 10/23/2020 On What Date Was Tobacco Cessation Counseling Provided? 10/06/2024 Information not available 10/06/2024 How Many Years Have You Smoked Tobacco? 0 Information not available 02/15/2020 Sex: Unknown Functional Status Question Answer Note LastModified by Organizat ion Details LastModified Time Do you use any illicit or recreational drugs? No Information not available 11/05/2021 Do you or have you ever used any other forms of tobacco or nicotine? No Information not available 10/23/2020 What is your level of alcohol consumption? None Information not available 10/23/2020 Do you or have you ever used smokeless tobacco? Never used smokeless tobacco Information not available 12/15/2019 Are you able to care for yourself? Yes Information not available 12/15/2019 Do you or have you ever used e-cigarettes or vape? Never used electronic cigarettes Information not available 12/15/2019 What is your exercise level? None Information not available 02/15/2020 Mental Status Question Answer Note LastModified by Organization D etails LastModified Time Do you feel stressed (tense, restless, nervous, or anxious, or unable to sleep at night)? [id number] Information not available 11/05/2021 Family History Relationship Description Onset Age of this Age Resolved Age Notes LastModified by Organization Details LastModified Time Father Hypercholest erolemia [email or web address] Not available 10/24 15:01:22 Father Hypertensive disorder [email or web address] Not available 10/24 15:01:29 Medical History Condition Response Coronary Artery Disease N Other N Atrial Fibrillation N High Blood Pressure N Kidney or Bladder Problems N Thyroid Problems N Depression N COPD N Blood Clots N GI Problems N Eating Disorder N Skin Problems N Anemia N Heart Attack (ND) N Anxiety Disorder N Diabetes N Muscle, [...] SNOMED-CT Code Diagnosis ICD10 Code Diagnosis Note [id number] Elzbieta Calzada MD [facility] [address] [place] [address] 11/11/2018 14:14:17 11/21/2018 09:46:50 Migraine 35891708 G43.909 controlled with OTC NSAIDs History an d physical examination, [facility] [id number] Z02.0 [id number] Elzbieta Calzada MD [facility] [address] [place] [address] 01/09/2019 09:53:37 01/16/2019 10:26:37 Initial prescription of oral contraception 683217409 Z30.011 Pain in pelvis 42822927 R10.2 [id number] Elzbieta Calzada MD [facility] [address] [place] [address] 04/21/2019 14:26:38 04/24/2019 09:59:08 Venereal disease screening 383146506 Z11.3 [id number] Elzbieta Calzada MD [facility] [address] [place] [address] 12/15/2019 09:38:06 12/19/2019 15:49:01 Exercise-induced asthma 75000184 J45.990 Patient advised to have the pharmacist show her how to use her inhalers correctly. Symbicort is to suppress bronchospa sm, ventolin to rescue patient from wheezing and coughing. [id number] Elzbieta Calzada MD [facility] [address] [place] [address] 02/15/2020 09:43:10 02/19/2020 09:41:48 Anterior chest wall pain [id number] R07.89 May be pleurisy due to atypical pneumoniti s, could be costochond ritis or autoimmune myalgias, but cannot rule out coronaviru s infection without testing. Viral syndrome [id number] B34.9 Anxiety 30659243 F41.9 discussed side effects and benefits of using buspirone for anxiety. [id number] Elzbieta Calzada MD [facility] [address] [place] [address] 09/20/2020 08:05:23 09/23/2020 12:12:35 Chronic headache disorder 317769635 G44.89 unilateral or behind eyes. Will try amitriptyl ine for prevention of migraines. Patient states she gets better with excedrin or ibuprofen. Encouraged good hydration and suggested keeping a food diary to look for foods which may be triggering the migraines. [id number] Elzbieta Calzada MD [facility] [address] [place] [address] 10/23/2020 12:36:29 10/25/2020 10:52:25 Ingrowing nail of toe of left foot [id number] 0414068 L60.0 Patient advised to keep toe clean with soap and water, and not to pick at it--the derrick hand can help but it's a lot easier without adding more infections . [id number] ARIADNE NUNEZ DPM [facility] [address] [place] [address] 11/01/2020 11:11:33 11/05/2020 11:11:24 Cellulitis of toe of left foot [id number] 3987391 L03.032 Cellulitis and abscess of toe 384312236 L02.612 Ingrowing nail 164316897 L60.0 Pyogenic g ranuloma of skin 23335724 L98.0 Contusion of left great toe 5857600484 3433255 S90.212A Pain in left foot 231232 5658 14324 M79.180 [id number] [address] DPM [facility] [address] [place] [address] 11/15/2020 11:52:03 11/19/2020 16:29:53 Cellulitis of toe of left foot 6299991528 5726604 L03.032 Cellulitis and abscess of toe 855856669 L02.612 Pyogenic g ranuloma of skin 22872111 L98.0 Contusion of left great toe 6352593279 6395296 S90.212D Pain in left foot 836415 1030 28107 M79.672 Ulcer of toe 697216930 L 97.208 [id number] [address]UNE[address] DPM [facility] [address] [place] [address] 12/27/2020 10:23:51 12/30/2020 14:06:38 Cellulitis of toe of left foot 7043778438 7126792 L03.032 Cellulitis and abscess of toe 790135942 L02.612 Ingrowing nail 979586631 L60.0 Pyogenic g ranuloma of skin 17147063 L98.0 Contusion of left great toe 3284269246 2430924 S90.212A Pain in left foot 184965 3901 54395 M79.789 [id number] Elzbieta Calzada MD [facility] [address] [place] [address] 2021 10:18:10 02/18/2021 08:04:08 Acute urinary tract infection 696335356 N39.0 [id number] Carlos Fonseca MD [facility] [address] [place] [address] 05/26/2021 09:44:06 05/28/2021 13:58:47 Pain of left shoulder joint 1251035809 6180109 M25.512 meds Neck pain 79968236 M54.2 meds and x-ray [id number] Mateo patel MD [facility] [address] [place] [address] 11/05/2021 14:21:07 11/06/2021 11:18:39 Asthma 908952478 J45.909 uses albuterol PRN with exercising Mixed anxi ety and depressive disorder 635882555 F41.8 on zoloft 50 since 2017depres champ controlled , no concernsPH Q 3 [id number] Mateo patel MD [facility] [address] [place] [address] 10/15/2022 13:46:38 10/15/2022 14:20:25 Asthma 355493899 J45.909 uses albuterol PRN with exercising Mixed anxi ety and depressive disorder 937489601 F41.8 10/15/22:PH Q 0refill zoloftpt asked about tapering off zoloft, started taking due to post depression pt unsure if she needs itrec'd to continue to take until hormone levels are regulated 11/05/21:on zoloft 50 since 2017depres champ controlled , no concernsPH Q 3 Hypothyroidism 75387772 E03.9 on levo 50DrDemetri Rosario is managing Body mass index 20-24 - normal 707153313 Z68.22 Throat irritation 159924 007 R07.0 son diagnosed with strep yesterdayw jung up this AM with scratchy throatPEx- oropharynx nl, tonsils not enlarged, no exudates, 2 uvulasreas sured pt [id number] Mateo patel MD [facility] [address] [place] [address] 06/03/2023 12:37:20 06/03/2023 13:13:40 Conjunctivitis of left eye caused by bacteria 2428601754 4524098 B96.89 x1 dayson with pink eyewearing glasses [...] or no improvemen t in 3 days. [id number] Mateo patel MD [facility] [address] [place] [address] 11/18/2023 09:50:56 11/18/2023 10:30:57 Strain of neck muscle 065849230 S16.1XXA x3 monthsL sidedno trauma or injuryshar p/stabbing painmild relief with NSAIDsPEx- FROM C spinetrial flexerilre alma to PT Adult heal th examination 927506902 Z00.00 routine labs Hypothyroidism 64195321 E03.9 on levo 50Dr. Mariusz Rosario is managingre -check levels today Endometrio sis of ovary 732858348 N80.109 had laparoscop ic surgery 1 mo agodiagnos ed with endometrio sis 3 months ago, per lap- present on ovaries and uterusfoll owing with Mariusz Rosario Mixed anxi ety and depressive disorder 388211639 F41.8 11/18/23: PHQ 0refill zoloft 10/15/22:PH Q 0refill zoloftpt asked about tapering off zoloft, started taking due to post depression pt unsure if she needs itrec'd to continue to take until hormone levels are regulated 11/05/21:on zoloft 50 since 2017depres champ controlled , no concernsPH Q 3 [id number] Aden Coats MD [facility] [address] [place] [address] 10/06/2024 11:43:22 10/06/2024 12:07:36 Mixed anxiety and depressive disorder 974320077 F41.8 10/06/24: PHQ 0refill zoloft 11/18/23: PHQ 0refill zoloft 10/15/22:PH Q 0refill zoloftpt asked about tapering off zoloft, started taking due to post depression pt unsure if she needs itrec'd to continue to take until hormone levels are regulated 11/05/21:on zoloft 50 since 2017depres champ controlled , no concernsPH Q 3 61162129 Z33.1 22 wks fo llowing with Dr. Batista February 07declines annual blood work today, will f/u post Health Concerns Section Related Observation LastModified by Organization Detai ls LastModified Time None Recorded Concern Status LastModified by Organization Details LastModified Time None Recorded Advance Directives Directive None Recorded Payers Insurance Date Sequence Insurance Name Policy Number Policy Andrade Covered Member ID Andrade Member ID Guarantor Name 09/20/2020 [place] [facility] Nia Bañuelos [id number] Nia Bañuelos 10/10/2024 2 [facility] (MEDICAID HMO) [id number] Nia Bañuelos [id number] Nia Bañuelos 02/15/2020 1 *SELF PAY* Br raul Bañuelos 09/17/2020 SLIDING FEE SCHEDULE - DISCOUNT Nia Patel Lambitalo 12/15/2019 1 [facility] (MEDICAID HMO) [id number] Nia Lambert [id number] Nia Patel Lambitalo 10/10/2024 1 [facility] (PPO) [id number] Nia Patel Lambitalo [id number] Nia Bañuelos Notes Date Note Type Note Provider Name and Address Organization Details Recorded Time 11/05/2021 text/html Pt presents to establish care. H/o asthma, migraines, and depression. States that she stopped taking amitriptyline due to trying to conceive. Denies recurrence of migraines. Uses albuterol inhaler PRN with exercising. Depression is controlled with zoloft. Denies fever, chills, chest pain, SOB, n/v/d, abd pain, dizziness, weakness, or headaches. DAVID VALENTINE Attn: Accounting, [address] [place], [address], [facility] 11/05/2021 15:11:47 10/15/2022 text/html Pt presents for zoloft refill. Reports she is doing well on medication. She is following with [facility] due to difficulty conceiving. Pt's 5 yr old son tested positive for strep yesterday. She woke up this morning with a scratchy throat. Denies fever, chills, chest pain, SOB, n/v/d, abd pain, dizziness, weakness, or headaches. DAVID VALENTINE Attn: Accounting, [address] [facility], [place], [address], [facility] 10/15/2022 14:23:39 06/03/2023 text/html Pt presents with L pink eye x1 day. Reports that her son was diagnosed with pink eye x2 days ago. C/o mild irritation and gunk on L eye lid. Denies blurred vision or vision changes. She has been applying warm compresses. Pt has been wearing glasses instead of her contacts. DAVID VALENTINE Attn: Accounting, [address] [facility], [place], [address], [facility] 06/03/2023 14:44:23 11/18/2023 text/html Pt presents for [...] VALENTINE Attn: Accounting,[address] , [place], [address], [place] - [facility] 11/19/2023 08:34:48 10/06/2024 text/html Pt presents for zoloft refill. She is currently 22 wks , following with Dr. Maria. No complaints today. DAVID VALENTINE Attn: Accounting,[address] , [place], [address], [place] - [facility] 10/06/2024 12:11:14 OBGyn Episode Ob Episode Information Episode Created Date Number of Fetuses Patient Bloodtype Patient rh Status Prepregnancy Weight lbs Domestic Partner Domestic Partner Phone Father Name Director Pharmacy Services Status 12/15/19 20 1 CLOSED Fetus Data First Name Last Name Admitted to NICU Weight (g) Sex Living Outcome Pediatric Complications Fetus ID Race Codes Race Delivery Type [id number] Job Calculation Initial Job Date Initial Exam Date Initial Exam Provider Initial Ultrasound Date Last Menstrual Period Date Ultra Sound Weeks Gestation 0 Eighteen To Twenty Week Job Update Ultra Sound Date Fundal Height At Umbil Quickening Date Ultra Sound Latest Weeks Gestation Final Job Confirmed By Final Job Confirmed Date Final Job Date Ultra Sound [...]
--- OUTSIDE RECORDS SUMMARY | 2025-01-31 05:11 | XMS_ITS | Clinical Summary ---
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
--- NOTE | 2025-01-31 05:12 | LDADM ---
This patient, Nia Bañuelos, was admitted to Labor/Delivery/Recovery 103 on 01/31/25 at 05:02. Plans for labor, pain management and were discussed with patient. Patient/family oriented to hospital policies and general routines including ID bracelet, bed and alarms, visiting hours, pain management, procedures, bathroom and other care routines, personal items, smoking policy, room service/diet and guest tray routines, infant security routines, and visiting hours. Patient/Family are encouraged to report perceived risks to care and to ask questions if they do not understand what they are told or what they should do. See OBIX for further documentation.
[2025-01-31 05:32] LABS: Hematocrit 32.8 % (37.0-47.0); Hemoglobin 10.3 g/dL (12.0-15.0); Immature Granulocyte Percent A 1.3 % (0-0.5); Lymphocytes Absolute Auto 2.22 K/mm3 (0.9-3.2); Mean Corpuscular HGB Conc 31.4 g/dl (32-36); Mean Corpuscular Hemoglobin 27.5 pg (26-34); Mean Corpuscular Volume 87.5 fl (80-100); Nucleated Red Blood Cells Absolute Auto 0.000 K/mm3 (0.0-0.012); Nucleated Red Blood Cells Perc 0.0 % (0.0-0.2); Platelet Count Result 148 k/mm3 (150-375); Red Blood Count 3.75 M/mm3 (4.2-5.4); White Blood Count 14.3 K/mm3 (4.5-10.0)
[2025-01-31] MEDS: LACTATED RINGERS 1,000 ML 125 ML IV CONT ×4 (05:46→19:10)
--- NOTE | 2025-01-31 06:38 | P.HP_ITS ---
H&P: HPI History of Present Illness Date/Time: 01/31/25 06:38 Chief Complaint: Medical induction of labor at term Narrative: This is a 34-year-old 2 para 1 whose last menstrual period is unknown but she had embryo embryo transplant on 05/19 24 giving an EDC of 710 25 presents at 39 and 6 7th weeks gestation for induction of labor the has been uncomplicated. The baby did have bilateral ureteral dilation but that is normalized the mattress and foundation sewer will be made aware this is a big baby Review of Systems Review of Systems: All systems reviewed & are unremarkable except as noted in HPI and below Constitutional: Constitutional: Reports as per HPI and Reports fever(s) Eyes: Eyes: Reports no additional eye complaints ENT: Reports as per HPI and Reports sore throat Cardiovascular: Cardiovascular: Reports no additional cardiovascular complaints, Denies chest pain and Denies dyspnea Respiratory: Respiratory: Reports no additional respiratory complaints, Denies chest congestion, Denies cough and Denies dyspnea Gastrointestinal: Gastrointestinal: Reports no additional gastrointestinal complaints, Denies abdominal pain, Denies nausea and Denies vomiting Musculoskeletal: Musculoskeletal: Reports no additional musculoskeletal complaints Integumentary/Breasts: Skin/Breast: Reports system reviewed and no additional complaints, except as docu Neurologic: Reports system reviewed and no additional complaints, except as documented Psychiatric: Psychiatric: Reports no additional psychiatric complaints Allergic/Immunologic: Allergic/Immunologic: Reports no additional al lergic/immunologic complaints PMFSH Past Medical History Medical History Anxiety Endometriosis Hypothyroidism Asthma Healthy adult Surgical History Surgical History No pertinent past surgical history Family History Family History Father Afib Other Hypertension Social History Social History Smoking status: Never smoker Alcohol intake: never Substance use: never Substance use type: does not use Do You Feel Safe in your Home?: Yes Lack of Transportation: No Lack of Food: Never True Current Housing: I Have Housing Concerned About Future Housing: No Difficulty Paying Gas/Electric Bills: No Difficulty Paying for Meds: No Currently Unemployed: No Education: Associate Degree Difficulty w/ Childcare or Family Care: No Living arrangements: with family Gender identity (if verbalized by the patient): Female Spiritual care concerns: No Meds Home Medications and Allergies Home Medications ?Medication ?Instructions ?Recorded ?Confirmed ?Type levothyroxine 50 mcg tablet 50 mcg PO DAILY 11/06/22 09/18/24 History sertraline 50 mg tablet 25 mg PO DAILY 11/06/22 09/18/24 History hydrocodone 5 mg-acetaminophen 325 1 tablet PO Q4H PRN pain #30 tabs 10/29/23 Rx mg tablet ondansetron 4 mg disintegrating 4 mg PO Q6H PRN nausea and 09/19/24 Rx tablet vomiting #20 tabs Allergies Allergy/AdvReac Type Severity Reaction Status Date / Time ciprofloxacin Allergy Intermediate Anaphylactic Verified 01/10/25 15:42 Shock Sulfa (Sulfonamide Allergy Unknown Rash Verified 01/10/25 15:42 Antibiotics) Vital Signs Vital Signs - 24 hr 01/31/25 05:23 01/31/25 05:26 01/31/25 05:28 Pulse Rate Blood Pressure Pulse Oximetry 100 100 Oxygen Delivery Room Air 01/31/25 05:33 01/31/25 05:38 01/31/25 05:44 Pulse Rate Blood Pressure Pulse Oximetry 99 100 99 Oxygen Delivery 01/31/25 05:49 01/31/25 05:54 01/31/25 05:59 Pulse Rate 86 Blood Pressure 135/80 Pulse Oximetry 99 100 99 Oxygen Delivery 01/31/25 06:00 01/31/25 06:04 01/31/25 06:09 Pulse Rate 78 Blood Pressure 123/71 Pulse Oximetry 100 100 Oxygen Delivery 01/31/25 06:14 01/31/25 06:19 01/31/25 06:24 Pulse Rate Blood Pressure Pulse Oximetry 100 100 99 Oxygen Delivery 01/31/25 06:29 01/31/25 06:30 01/31/25 06:34 Pulse Rate 83 Blood Pressure 118/70 Pulse Oximetry 98 100 Oxygen Delivery Exam Const: General: cooperative, healthy appearing and comfortable Nutritional Appearance: average body habitus Orientation/consciousness: oriented to person, oriented to place and oriented to time HENMT: Head: normal to inspection Resp: Effort & Inspection: normal respiratory effort Cardio: Rate: regular rate Rhythm: regular rhythm Heart sounds: S1 normal heart sound present and S2 normal heart sound present GI: Inspection: normal to inspection (Gravid soft uterus) : Speculum Exam - Cervix: normal appearance of the cervix (Cervix 75/2. AROM clear. FHTs reassuring) H&P: Results Labs Labs: Short CBC 01/31/25 Range/Units 05:24 WBC 14.3 H (4.5-10.0) K/mm3 Hgb 10.3 L (12.0-15.0) g/dL Hct 32.8 L (37.0-47.0) % Plt Count 148 L (150-375) k/mm3 Assessment and Plan Assessment and plan (1) Term : Code(s): Z34.90 - Encounter for supervision of normal , unspecified, unspecified trimester Status: Acute Plan Medical induction of labor. Spontaneous vaginal delivery expected. She is an epidural candidate
[2025-01-31 06:46] LABS: Syphilis IgG/IgM Antibody Non-Reactive (Nonreactive)
--- NOTE | 2025-01-31 06:51 | WPDANESEPP ---
Anes - Eval Pre Procedure Procedure: labor epidural Date/Time: 01/31/25 06:51 Surgeon: ryanne Preop Diagnosis: pain during labor Pre Op Diagnosis: IOL Patient Data Age: 34 Gender: F Height: 1.78 m Weight: 89.5 kg Last Vital Signs Temp 36.2 C L 01/31/25 06:30 Pulse 83 01/31/25 06:30 BP 118/70 01/31/25 06:30 Pulse Ox 99 01/31/25 06:49 O2 Del Method Room Air 01/31/25 05:26 Allergies Allergy/AdvReac Type Severity Reaction Status Date / Time ciprofloxacin Allergy Intermediate Anaphylactic Verified 01/31/25 06:47 Shock Sulfa (Sulfonamide Allergy Unknown Rash Verified 01/31/25 06:47 Antibiotics) Home Medications ?Medication ?Instructions ?Recorded ?Confirmed ?Type levothyroxine 50 mcg tablet 50 mcg PO DAILY 11/06/22 01/31/25 History sertraline 50 mg tablet 25 mg PO DAILY 11/06/22 01/31/25 History hydrocodone 5 mg-acetaminophen 325 1 tablet PO Q4H PRN pain #30 tabs 10/29/23 Rx mg tablet ondansetron 4 mg disintegrating 4 mg PO Q6H PRN nausea and 09/19/24 Rx tablet vomiting #20 tabs Laboratory Tests 01/31/25 05:24 WBC 14.3 H K/mm3 (4.5-10.0) RBC 3.75 L M/mm3 (4.2-5.4) Hgb 10.3 L g/dL (12.0-15.0) Hct 32.8 L % (37.0-47.0) MCV 87.5 fl (80-100) MCH 27.5 pg (26-34) MCHC 31.4 L g/dl (32-36) RDW 14.2 % (11.5-14.5) Plt Count 148 L k/mm3 (150-375) MPV 11.7 H fl (7.4-10.4) Immature Gran % (Auto) 1.3 H % (0-0.5) Neut % (Auto) 73.6 H % (45.5-73.1) Lymph % (Auto) 15.5 L % (18.3-44.2) Delta % (Auto) 6.3 % (2.6-8.5) Eos % (Auto) 3.0 % (0-4.4) Baso % (Auto) 0.3 % (0.2-1.2) Lymph # (Auto) 2.22 K/mm3 (0.9-3.2) Delta # (Auto) 0.9 H K/mm3 (0.1-0.6) Eos # (Auto) 0.4 H K/mm3 (0-0.3) Baso # (Auto) 0.1 K/mm3 (0.0-0.1) Abs Immat Gran (auto) 0.18 H K/mm3 (0.00-0.031) Absolute Neuts (auto) 10.5 H K/mm3 (1.3-6.7) Absolute Nucleated RBC 0.000 K/mm3 (0.0-0.012) Nucleated RBC % 0.0 % (0.0-0.2) Syphilis IgG/IgM Ab Non-reactive (Nonreactive) Blood Type O Positive Antibody Screen Negative Patient hx anesthesia problems: none Family hx anesthesia problems: none Results Review: All pre-operative results and documents have been reviewed as part of the pre-operative evaluation. [facility] Past Medical History Medical History Anxiety Endometriosis Hypothyroidism Asthma Healthy adult Surgical History Surgical History No pertinent past surgical history Family History Family History Father Afib Other Hypertension Social History Social History Smoking status: Never smoker Alcohol intake: never Substance use: never Substance use type: does not use Do You Feel Safe in your Home?: Yes Lack of Transportation: No Lack of Food: Never True Current Housing: I Have Housing Concerned About Future Housing: No Difficulty Paying Gas/Electric Bills: No Difficulty Paying for Meds: No Currently Unemployed: No Education: Associate Degree Difficulty w/ Childcare or Family Care: No Living arrangements: with family Gender identity (if verbalized by the patient): Female Spiritual care concerns: No Exam Day of Procedure 01/31/25 06:51
[2025-01-31] MEDS: OXYTOCIN 30 UNITS/NS 500 ML 30 UNITS/500 ML BAG IV CONT (07:05)
--- NOTE | 2025-01-31 11:58 | PM.OBPNLAB ---
Pain Control Date/time seen: 01/31/25 11:58 Pain control: tolerating well and epidural Pelvic Exam Dilation (cm): 4 Effacement (%): 80 station: -2 Amniotic membrane status: Leaking
--- NOTE | 2025-01-31 16:12 | PM.OBPNLAB ---
Pain Control Date/time seen: 01/31/25 16:12 Pain control: tolerating well and epidural Pelvic Exam Dilation (cm): 6 Effacement (%): 80 station: -2 Amniotic membrane status: Leaking Comments: iupc placed
[2025-01-31] MEDS: ACETAMINOPHEN 500 MG TABLET 1000 MG PO (17:08)
--- NOTE | 2025-01-31 21:00 | PM.OBPNLAB ---
Pain Control Date/time seen: 01/31/25 21:00 Pain control: tolerating well and epidural Pelvic Exam Dilation (cm): 10 Effacement (%): 100 station: -2 Amniotic membrane status: Leaking
--- NOTE | 2025-01-31 22:10 | PM.OBPRVD ---
OB - Vaginal Delivery Note Procedure Delivery date: 01/31/25 Events: Elective Induction of Labor Induction method: AROM Delivery augmentation: Pitocin Delivery monitor: External FHT, External Uterine and Internal Uterine Route of delivery: Episiotomy description: None Laceration Description: None Specimen: No Quantitative Blood Loss (ml): 162 Anesthesia type: Epidural Disposition: Floor Narrative: The patient was admitted for induction of labor on the early a.m. 01/31/2025 she had epidural anesthesia placed underwent spontaneous vaginal delivery over an SEDRICK position anterior and posterior shoulder delivered spontaneously after relieving the occiput from my nuchal cord patient after the baby was cord was clamped x2 and cut given Apgars of 7 [id number]. Cord blood was drawn. Placenta delivered intact spontaneously. 20units Pitocin were placed in the IV to help firm the uterus no tears or lacerations were noted. There was a brief episode of a gush of blood and dose of Methergine was given with excellent uterine contraction. Mom and baby doing fine at the time of dictation Baby Date of : 01/31/25 Time of : 21:58 Gestational Age by Date: 40 gender: Female Weight (pounds): 8 Weight (ounces): 6 presentation: vertex position: Right Occiput Anterior Placenta delivery description: Spontaneous Cord Vessel Description: 3 Vessels, Nuchal Cord, Loose and Reduced score one minute: 7 score five minutes: 9
--- NOTE | 2025-01-31 22:13 | P.DS_ITS ---
DS: Admitting Diagnosis Discharge Date 02/02/2025 Admitting Diagnosis Term DS: Discharge Diagnosis Discharge Diagnosis (1) Term : Code(s): Z34.90 - Encounter for supervision of normal , unspecified, unspecified trimester Status: Acute DS: Summary Hospital Course Reason for hospitalization: Patient was admitted for induction of labor 725 and spontaneous vaginal delivery Hospital Course: Patient's hospital. She remained afebrile. She was up, voiding, eating regular diet, ambulating, and generally without complaints. Time Spent with Patient Time attestation: Total time spent providing and/or coordinating discharge services: Exam Const: General: cooperative, healthy appearing and comfortable Nutritional Appearance: average body habitus Orientation/consciousness: oriented to person, oriented to place and oriented to time HENMT: Head: normal to inspection Resp: Effort & Inspection: normal respiratory effort Cardio: Rate: regular rate Rhythm: regular rhythm Heart sounds: S1 normal heart sound present and S2 normal heart sound present GI: Inspection: normal to inspection (Gravid soft uterus) : Speculum Exam - Cervix: normal appearance of the cervix (Cervix 3/75/2. AROM clear. FHTs reassuring) DS: Data Data Completed and Pending Labs on day of discharge: Labs from last 24 hours 01/31/25 05:24 WBC 14.3 H RBC 3.75 L Hgb 10.3 L Hct 32.8 L MCV 87.5 MCH 27.5 MCHC 31.4 L RDW 14.2 Plt Count 148 L MPV 11.7 H Immature Gran % (Auto) 1.3 H Neut % (Auto) 73.6 H Lymph % (Auto) 15.5 L [place] % (Auto) 6.3 Eos % (Auto) 3.0 Baso % (Auto) 0.3 Lymph # (Auto) 2.22 [place] # (Auto) 0.9 H Eos # (Auto) 0.4 H Baso # (Auto) 0.1 Abs Immat Gran (auto) 0.18 H Absolute Neuts (auto) 10.5 H Absolute Nucleated RBC 0.000 Nucleated RBC % 0.0 Syphilis IgG/IgM Ab Non-reactive Blood Type O Positive Antibody Screen Negative Discharge Plan Discharge Attending physician on discharge: Juan Sesay Discharging Clinician: Juan Sesay Patient Disposition: Home Activity: may shower, no straining and pelvic rest Diet: heart healthy Wound Care Instructions: follow printed instructions Patient Instructions: Antibiotic Form Patient Language: Romanian Stand Alone Forms: General Discharge Information Follow-up/Referrals: Juan Sesay MD [Physician] - Discharge Medications: Continued levothyroxine 50 mcg tablet 50 mcg PO DAILY sertraline 50 mg tablet 25 mg PO DAILY hydrocodone-acetaminophen 5-325 mg tablet 1 tablet PO Q4H PRN (Reason: pain) Qty: 30 0RF ondansetron 4 mg tablet,disintegrating 4 mg PO Q6H PRN (Reason: nausea and vomiting) Qty: 20 0RF Date of admission: 01/31/25 05:02 Primary Care Provider: KalaniAnnie Admitting Provider: Juan Sesay Attending physician on admission: Juan Sesay Condition: Stable
[2025-01-31] MEDS: METHYLERGONOVINE MALEATE 0.2 MG/ML VIAL (22:15)
[2025-01-31] MEDS: OXYTOCIN 30 UNITS/NS 500 ML 30 UNITS/500 ML BAG 125 UNITS IV CONT (22:30)
[2025-02-01] VITALS (38 sets, daily range): BP systolic 98–148; BP diastolic 45–85; PULSE 63–102; RESP 14–18; TEMP 36.4–37.4; O2SAT 97–100
[2025-02-01] MEDS: IBUPROFEN 600 MG TABLET PO ×4 (00:54→23:20)
[2025-02-01] MEDS: ACETAMINOPHEN 325 MG TABLET 650 MG (03:00)
[2025-02-01 06:39] LABS: Hematocrit 27.5 % (37.0-47.0); Hemoglobin 8.6 g/dL (12.0-15.0)
--- NOTE | 2025-02-01 07:01 | P.PNOB_ITS ---
OB - PN: Subj Subjective Date/time seen: 02/01/25 07:01 Patient comments: no complaints and pain well controlled baby status: doing well OB - PN: Obj Data Labs 02/01/25 06:15 Labs: Laboratory Results - last 24 hr 02/01/25 06:15 Hgb 8.6 L Hct 27.5 L OB - PN A/P Assessment and Plan (1) Term : Code(s): Z34.90 - Encounter for supervision of normal , unspecified, unspecified trimester Status: Acute Plan routine care Time Spent With Patient Time: Total time spent is greater than 50% in coordination of care (as documented) at patient's floor/unit and/or counseling patient: Review of Systems 2 Review of Systems: All systems reviewed & are unremarkable except as noted in HPI and below Constitutional: Constitutional: Reports as per HPI and Reports fever(s) Eyes: Eyes: Reports no additional eye complaints ENT: Reports as per HPI and Reports sore throat Cardiovascular: Cardiovascular: Reports no additional cardiovascular complaints, Denies chest pain and Denies dyspnea Respiratory: Respiratory: Reports no additional respiratory complaints, Denies chest congestion, Denies cough and Denies dyspnea Gastrointestinal: Gastrointestinal: Reports no additional gastrointestinal complaints, Denies abdominal pain, Denies nausea and Denies vomiting Musculoskeletal: Musculoskeletal: Reports no additional musculoskeletal complaints Integumentary/Breasts: Skin/Breast: Reports system reviewed and no additional complaints, except as docu Neurologic: Reports system reviewed and no additional complaints, except as documented Psychiatric: Psychiatric: Reports no additional psychiatric complaints Allergic/Immunologic: Allergic/Immunologic: Reports no additional allergic/immunologic complaints Exam 2 Const: General: cooperative, healthy appearing and comfortable Nutritional Appearance: average body habitus Orientation/consciousness: oriented to person, oriented to place and oriented to time HENMT: Head: normal to inspection Resp: Effort & Inspection: normal respiratory effort Cardio: Rate: regular rate Rhythm: regular rhythm Heart sounds: S1 normal heart sound present and S2 normal heart sound present GI: Inspection: normal to inspection (Gravid soft uterus) : Speculum Exam - Cervix: normal appearance of the cervix (Cervix 3/75/2. AROM clear. FHTs reassuring)
[2025-02-01] MEDS: HYDROcodone/acetaminophen (*CRX) 5-325 MG TABLET 1 TAB (07:20)
--- NOTE | 2025-02-01 07:58 | WPDANLDPN2 ---
Anes-Prog Note L&D Date/Time: 02/01/25 07:58 Comfortable throughout: labor Neuraxial method: epidural Epidural/Spinal procedure site: clean & non-tender Neuro status: Neuro function grossly intact. Cardiovascular status: normal Respiratory status: normal Airway patency: baseline Mental status: baseline Post-Op hydration status: normal Vital Signs: Last Vital Signs Temp 36.8 C 02/01/25 05:40 Pulse 90 02/01/25 05:40 Resp 14 02/01/25 05:40 BP 121/77 02/01/25 05:40 Pulse Ox 100 02/01/25 05:40 O2 Del Method Room Air 01/31/25 05:26 Pain score (VAS): 0 I/O: Intake & Output 01/31/25 01/31/25 02/01/25 15:59 23:59 07:59 Intake Total 1999 1000 Output Total 357 80 Balance 1999 643 -80 Post-procedural complaints: none Patient feedback: Patient satisfied with anesthetic care.
[2025-02-01] MEDS: DOCUSATE SODIUM 100 MG CAPSULE PO ×2 (09:46→16:19)
[2025-02-01] MEDS: ACETAMINOPHEN 325 MG TABLET 650 MG PO ×2 (12:08→23:20)
[2025-02-01] MEDS: HYDROcodone/acetaminophen (*CRX) 5-325 MG TABLET 1 TAB PO (12:09)
[2025-02-02] MEDS: HYDROcodone/acetaminophen (*CRX) 5-325 MG TABLET 1 TAB PO (02:36)
--- NOTE | 2025-02-02 06:48 | PM.OBPNVD ---
OB - PN: Subj Subjective Date/time seen: 02/02/25 06:48 Patient comments: no complaints, pain well controlled and tolerating diet [place] baby status: doing well OB - PN: Obj Data Labs 02/01/25 06:15 Labs: Laboratory Results - last 24 hr 02/01/25 06:15 Hgb 8.6 L Hct 27.5 L OB - PN A/P Assessment and Plan (1) Term : Code(s): Z34.90 - Encounter for supervision of normal , unspecified, unspecified trimester Status: Acute Time Spent With Patient Time: Total time spent is greater than 50% in coordination of care (as documented) at patient's floor/unit and/or counseling patient:
[2025-02-02 07:40] VITALS: BP 107/64; PULSE 62; RESP 16; TEMP 36.8; O2SAT 99
[2025-02-02] MEDS: DOCUSATE SODIUM 100 MG CAPSULE PO (08:40)
[2025-02-03 09:21] VITALS: BP 112/68; PULSE 68; RESP 18; TEMP 36.4; O2SAT 100
== END 2025-02-02 13:05 | disposition home or self-care (01) | DRG 807 ==
LOC: ANHLDR 22:14 → ANHOB2 02-01 05:25
PROVIDERS: Admitting Provider Obstetrics & Gynecology; PCP Physician Assistant; Visit Provider Obstetrics & Gynecology
DX: O99.284 Endocrine, nutritional and metabolic diseases complicating childbirth (principal); Z37.0 Single live birth; E03.9 Hypothyroidism, unspecified; O99.344 Other mental disorders complicating childbirth; F41.9 Anxiety disorder, unspecified; O69.81X0 Labor and delivery complicated by cord around neck, without compression, not applicable or unspecified; Z3A.39 39 weeks gestation of pregnancy
CPT/HCPCS: 36415; 85014; 85018; 85025; 86593; 86850; 86900; 86901; A9270; J2210; J2590; J2795; J7120

== ENCOUNTER 2025-02-09 12:05 | Emergency (ER) | payer BC, SELFPAY ==
--- NOTE | 2025-02-09 12:13 | ED.BACK ---
HPI - Back Pain/Injury General Chief Complaint: Back Pain/Injury Stated Complaint: Lower Back Pain Time Seen by Provider: 02/09/25 12:09 Source: patient Mode of arrival: ambulatory Limitations: no limitations History of Present Illness HPI Narrative: Nia is a 34-year-old female patient presenting to the clinic today with complaints of left-sided low back pain x8 days. She had a full-term vaginal delivery on January 31, 2025. States that the labor was normal. Daughter was stuck on her right side at one point in time during labor but no manual manipulation of the baby was performed. States that they did place her is several different positions. Is complaining left lower/posterior hip pain with some radiation of pain down the left leg. States the pain is sharp and shooting. Rates the pain a 7 out of 10 when walking and a 3/10 when lying/sitting. No loss of bowel or bladder. No urinary symptoms. Denies saddle anesthesia. Has been taking Tylenol and ibuprofen without relief. 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 Related Data Home Medications ?Medication ?Instructions ?Recorded ?Confirmed ?Last Taken ?Type levothyroxine 50 mcg tablet 50 mcg PO DAILY 11/06/22 01/31/25 01/31/25 04:00 History 50 mcg sertraline 50 mg tablet 25 mg PO DAILY 11/06/22 01/31/25 01/30/25 22:00 History 25 mg Allergies Allergy/AdvReac Type Severity Reaction Status Date / Time ciprofloxacin Allergy Intermediate Anaphylactic Verified 02/09/25 12:07 Shock Sulfa (Sulfonamide Allergy Unknown Rash Verified 02/09/25 12:07 Antibiotics) Review of Systems Review of Systems: Pertinent positives per HPI. Patient denies any fever, chills, rash, headache, visual changes, dizziness, cough, runny nose, sore throat, shortness of breath, chest pain, palpitations, nausea, vomiting, diarrhea, constipation, abdominal pain, or any urinary issues. FORMERLY [facility], [facility] Past Medical History Medical History Anxiety Endometriosis Hypothyroidism Asthma Healthy adult Surgical History Surgical History No pertinent past surgical history Family History Family History Father Afib Other Hypertension Social History Social History Smoking status: Never smoker Alcohol intake: never Substance use: never Substance use type: does not use Do You Feel Safe in your Home?: Yes Lack of Transportation: No Lack of Food: Never True Current Housing: I Have Housing Concerned About Future Housing: No Difficulty Paying Gas/Electric Bills: No Difficulty Paying for Meds: No Currently Unemployed: No Education: Associate Degree Difficulty w/ Childcare or Family Care: No Living arrangements: with family Gender identity (if verbalized by the patient): Female Spiritual care concerns: No Comments At the time of my signature, I reviewed and agree with the nursing past medical, surgical, social, and family history. There is no relevant family history pertinent to the patient complaint. Exam Narrative: General: Well-developed, well nourished, in no apparent distress Head: Normocephalic, atraumatic. Cardio: Regular rate and rhythm, s1 and s2 normal, no murmur appreciated. Resp: Clear to auscultation bilaterally, no rhonchi, rales, wheezing or rubs. Musculoskeletal: No deformity, tender to palpation over the left SI joint with pain radiating down into the left leg, grossly normal range of motion, muscle strength strong and equal in BLE. SLT negative, patellar reflexes 2/4 bilaterally, negative foot drop, normal gait and station Course Course Emergency Course: Portions of this record may have been created with voice recognition software. Level of Care: Express Care Visit Vital Signs Vital signs: Vital Signs Temperature 35.6 C L 02/09/25 12:20 Pulse Rate 84 02/09/25 12:20 Respiratory Rate 18 02/09/25 12:20 Blood Pressure 119/87 02/09/25 12:20 Pulse Oximetry 100 02/09/25 12:20 Oxygen Delivery Room Air 02/09/25 12:20 Temperature 35.6 C L 02/09/25 12:20 Pulse Rate 84 02/09/25 12:20 Respiratory Rate 18 02/09/25 12:20 Blood Pressure 119/87 02/09/25 12:20 Pulse Oximetry 100 02/09/25 12:20 Oxygen Delivery Room Air 02/09/25 12:20 Vital signs reviewed MDM - Back Pain/Injury MDM Narrative Medical decision making narrative: At the time of visit patient is resting comfortably on the exam table. Patient appears to be nontoxic. Reporting pain over the left SI joint with pain radiating down the left leg. Pain is constant. Rates pain 3/10 when sitting and a 7/10 when walking. Has been taking Tylenol and ibuprofen without relief. Recently gave on January 31, 2025. Patient did not have a traumatic experience. Infant was full-term and there were no complications after delivery. Started having pain over the left SI joint the following day after . I suspect this is likely due to positioning likely during the process. She denies any tailbone or back pain. No urinary symptoms. No saddle anesthesia or loss of bowel or bladder. Patient is not . Plan: I suspect patient has left dysfunction with radiculopathy/sciatica. Prescription for Medrol Dosepak was sent to the pharmacy. Recommend using ice/heat to the affected area as well as massage and topical creams/patches. Risk and benefits of the Medrol Dosepak was reviewed with the patient. Recommend follow up with OBGYN. Supportive measures were discussed with the patient and they voiced understanding discharge instructions and agrees to treatment plan. Return precautions reviewed Differential Diagnosis Differential diagnosis: Likely lumbar radiculopathy, sciatica, strain of lumbar region, renal colic, pyelonephritis, thoracic back pain, AAA, discitis and other (Fracture tailbone) Discharge Plan Discharge Clinical Impression: Sacroiliac joint dysfunction of left side, Left sided sciatica Patient Disposition: Home Condition: Stable Instructions: Antibiotic Form, Sciatica (ED), Hip Pain (ED) Additional Instructions: Take any prescription medication only as prescribed-Medrol Dosepak May use heat or ice to the affected area Consider massage or chiropractor adjustment if this was discussed with provider May use blue emu, lidocaine patches, or asper cream to affected area- do not apply heat or ice directly over cream- can cause burn. Complete appropriate sciatica back stretching exercises Follow up with your PCP in 3-5 days if symptom persist. Patient Language: Azeri Prescriptions: New methylprednisolone [Medrol (Ruddy)] 4 mg tablets,dose pack See Rx Instructions PO .COMPLEX Qty: 21 0RF Rx Instructions: orally per package directions No Action levothyroxine 50 mcg tablet 50 mcg PO DAILY sertraline 50 mg tablet 25 mg PO DAILY hydrocodone-acetaminophen 5-325 mg tablet 1 tablet PO Q4H PRN (Reason: pain) Qty: 30 0RF ondansetron 4 mg tablet,disintegrating 4 mg PO Q6H PRN (Reason: nausea and vomiting) Qty: 20 0RF Follow-up/Referrals: Torie,DAVID Valencia [Primary Care Provider] - Time of Disposition: 12:39 Quality NIHSS Nursing Documentation ED NIHSS nursing documentation: reviewed/agree
[2025-02-09 12:20] VITALS: BP 119/87; PULSE 84; RESP 18; TEMP 35.6; O2SAT 100
== END 2025-02-09 12:45 | disposition home or self-care (01) ==
PROVIDERS: Emergency Provider Nurse Practitioner Family; PCP Physician Assistant
DX: O90.89 Other complications of the puerperium, not elsewhere classified (principal); M53.3 Sacrococcygeal disorders, not elsewhere classified; M54.32 Sciatica, left side; J45.909 Unspecified asthma, uncomplicated; E03.9 Hypothyroidism, unspecified; N80.9 Endometriosis, unspecified
CPT/HCPCS: 99213; G0463

== ENCOUNTER 2025-02-15 13:56 | Outpatient (CLI) | payer BC, SELFPAY ==
--- NOTE | ~2025-02-15 | XR_ITS ---
EXAM/ PROCEDURE: XR lumbar spine 2-3V - 02/15/2025 14:10 CDT HISTORY: 34 years old Female with SCIATICA NERVE PAIN COMPARISON: None available TECHNIQUE: Three view(s) FINDINGS/ IMPRESSION: There are no fractures or dislocations.Intervertebral disc spaces are within normal limits. Moderate stool burden. Reviewed, dictated and finalized at location A.
--- OUTSIDE RECORDS SUMMARY | 2025-02-15 14:11 | XMS_ITS | Clinical Summary ---
Author Organization [address] Address [address] [place] [id number] Care Team Providers Care Nail Galvanizer Name Role Phone Annie Vogt Primary Care Provider [phone] Allergies Active Allergy Reactions Criticality Noted Date [...] on file Legal Sex Female 8:50 PM [employer] Gender Identity Not on file Sexual Orientation [...] BL CHOICE PRF PPO [place] Care Teams Nail Galvanizer Relationship Specialty Start Date End Date Annie Vogt PA [address] [place] [id number] PCP - General Physician Bmet 04/21/24
--- OUTSIDE RECORDS SUMMARY | 2025-02-15 14:11 | XMS_ITS | Data Portability ---
Author Organization [facility] Juan Perea Address [address] [place] [address] Care Team Providers Care Coverage Specialist Name Role Phone CALZADAELZBIETA Primary Care Provider [...] TSH + free T4, serum 2023 024 [facility], [address], [place], [address], 4 08:31:30 CMP, serum or plasma 2023 024 [facility], [address], [place], [address], 4 08:31:31 lipid panel, serum 2023 024 [facility], [address], [place], [address], 4 08:31:31 CBC w/ auto diff 2023 024 [facility], [address], [place], [address], 4 08:31:32 HbA1c (hemoglobin A1c), blood 2023 024 [facility], [address], [place], [address], 4 08:31:32 Referral physical therapist referral 2023 024 [facility], [address], [place], [address], 4 10:40:56 Procedures None recorded. Surgeries None recorded. Imaging None recorded. Medication Orders sertraline 50 mg tablet 2024 025 [facility] #[id number], [address], [place], [id number], 5 12:09:53 cyclobenzap rine 7.5 mg tablet 2023 025 [facility] #[id number], [address], [place], [id number], 5 12:03:33 sertraline 50 mg tablet 2023 024 [facility] #76103, [address], [place], [id number], 4 10:25:00 polymyxin B sulfate 10,000 unit-trimet hoprim 1 mg/mL eye drops 2022 023 [facility] #66039, [address], [place], [id number], 4 10:08:14 sertraline 50 mg tablet 2022 023 [facility] #39941, [address], [place], [id number], 3 14:18:59 Patient TargetsNo targets recorded. Patient [...] uIU/m L 0.450- 4.500 Not Available [facility] ([facility]) [address] [place], [address], 11/19/2023 08:31:30 11/18/19 24 11/19/2023 TSH+F REE T4 T4,free(dire ct) 1.26 NG/dL 0.82-1 .77 Not Available [facility] ([facility]) [address] [place], [address], 11/19/2023 08:31:30 11/18/19 24 11/19/2023 LIPID PANEL WITH LDL/H DL RATIO cholesterol, total 198 mg/dL 100-19 9 Not Available [facility] ([facility]) [address] [place], [address], 11/19/2023 08:31:30 11/18/19 24 11/19/2023 LIPID PANEL WITH LDL/H DL RATIO triglyceride s 74 mg/dL 0-149 Not Available [facility] ([facility]) [address] [place], [address], 11/19/2023 08:31:30 11/18/19 24 11/19/2023 LIPID PANEL WITH LDL/H DL RATIO HDL cholesterol 50 mg/dL >39 Not Available [facility] ([facility]) [address] [place], [address], 11/19/2023 08:31:30 11/18/19 24 11/19/2023 LIPID PANEL WITH LDL/H DL RATIO VLDL cholesterol afshan 13 mg/dL 5-40 Not Available [facility] ([facility]) [address] [facility], [place], [address], 11/19/2023 08:31:30 11/18/19 24 11/19/2023 LIPID PANEL WITH LDL/H DL RATIO LDL chol calc ([facility]) 135 mg/dL 0-99 above high normal Not Available [facility] ([facility]) [address] [place], [address], 11/19/2023 08:31:30 11/18/19 24 11/19/2023 LIPID PANEL WITH LDL/H DL RATIO LDL/HDL ratio 2.7 ratio 0.0-3. 2 LDL/H DL Ratio Men Women 1/2 Avg.R isk 1.0 1.5 Avg.R isk 3.6 3.2 2X Avg.R isk 6.2 5.0 3X Avg.R isk 8.0 6.1 Not Available [facility] ([facility]) [address] [place], [address], 11/19/2023 08:31:30 11/18/19 24 11/19/2023 COMP. METAB OLIC PANEL (14) glucose 90 mg/dL 70-99 Not Available [facility] ([facility]) [address] [place], [address], 11/19/2023 08:31:31 11/18/19 24 11/19/2023 COMP. METAB OLIC PANEL (14) BUN 17 mg/dL 6-20 Not Available [facility] ([facility]) [address] [place], [address], 11/19/2023 08:31:31 11/18/19 24 11/19/2023 COMP. METAB OLIC PANEL (14) creatinine 0.73 mg/dL 0.57-1 .00 Not Available [facility] ([facility]) [address] [place], [address], 11/19/2023 08:31:31 11/18/19 24 11/19/2023 COMP. METAB OLIC PANEL (14) eGFR 112 mL/mi n/1.7 3 >59 Not Available [facility] ([facility]) [address] [place], [address], 11/19/2023 08:31:31 11/18/19 24 11/19/2023 COMP. METAB OLIC PANEL (14) BUN/creatini ne ratio 23 9-23 Not Available [facility] ([facility]) [address] [place], [address], 11/19/2023 08:31:31 11/18/19 24 11/19/2023 COMP. METAB OLIC PANEL (14) sodium 139 mmol/ L 134-14 4 Not Available [facility] ([facility]) [address] [place], [address], 11/19/2023 08:31:31 11/18/19 24 11/19/2023 COMP. METAB OLIC PANEL (14) potassium 4.6 mmol/ L 3.5-5. 2 Not Available [facility] ([facility]) [address] [place], [address], 11/19/2023 08:31:31 11/18/19 24 11/19/2023 COMP. METAB OLIC PANEL (14) chloride 101 mmol/ L 96-106 Not Available [facility] ([facility]) [address] [place], [address], 11/19/2023 08:31:31 11/18/19 24 11/19/2023 COMP. METAB OLIC PANEL (14) carbon dioxide, total 21 mmol/ L 20-29 Not Available [facility] ([facility]) [address] [facility], [place], [address], 11/19/2023 08:31:31 11/18/19 24 11/19/2023 COMP. METAB OLIC PANEL (14) calcium 9.3 mg/dL 8.7-10 .2 Not Available [facility] ([facility]) [address] [facility], [place], [address], 11/19/2023 08:31:31 11/18/19 24 11/19/2023 COMP. METAB OLIC PANEL (14) protein, total 7.5 g/dL 6.0-8. 5 Not Available [facility] ([facility]) [address] [facility] [place], [address], 11/19/2023 08:31:31 11/18/19 24 11/19/2023 COMP. METAB OLIC PANEL (14) albumin 4.6 g/dL 3.9-4. 9 Not Available [facility] ([facility]) [address] [facility], [place], [address], 11/19/2023 08:31:31 11/18/19 24 11/19/2023 COMP. METAB OLIC PANEL (14) globulin, total 2.9 g/dL 1.5-4. 5 Not Available [facility] ([facility]) [address] [facility] [place], [address], 11/19/2023 08:31:31 11/18/19 24 11/19/2023 COMP. METAB OLIC PANEL (14) A/G ratio 1.6 1.2-2. 2 Not Available [facility] ([facility]) [address] [facility] [place], [address], 11/19/2023 08:31:31 11/18/19 24 11/19/2023 COMP. METAB OLIC PANEL (14) bilirubin, total 0.4 mg/dL 0.0-1. 2 Not Available [facility] ([facility]) [address] [facility] [place], [address], 11/19/2023 08:31:31 11/18/19 24 11/19/2023 COMP. METAB OLIC PANEL (14) alkaline phosphatase 93 IU/L 44-121 Not Available [facility] ([facility]) [address] [facility], [place], [address], 11/19/2023 08:31:31 11/18/19 24 11/19/2023 COMP. METAB OLIC PANEL (14) AST (SGOT) 17 IU/L 0-40 Not Available [facility] ([facility]) [address] [facility], [place], [address], 11/19/2023 08:31:31 11/18/19 24 11/19/2023 COMP. METAB OLIC PANEL (14) ALT (SGPT) 9 IU/L 0-32 Not Available [facility] ([facility]) [address] [facility], [place], [address], 11/19/2023 08:31:31 11/18/19 24 11/19/2023 HEMOG LOBIN A1C hemoglobin A1C 5.1 % 4.8-5. 6 Predi abete s: 5.7 - 6.4 Diabe sandro: >6.4 Glyce ivan contr ol for adult s with diabe sandro: <7.0 Not Available [facility] ([facility]) [address] [facility], [place], [address], 11/19/2023 08:31:32 11/18/19 24 11/19/2023 CBC WITH DIFFE RENTI AL/PL ATELE T WBC 7.2 x10e3 /uL 3.4-10 .8 Not Available [facility] ([facility]) [address] [facility], [place], [address], 11/19/2023 08:31:32 11/18/19 24 11/19/2023 CBC WITH DIFFE RENTI AL/PL ATELE T RBC 4.07 x10e6 /uL 3.77-5 .28 Not Available [facility] ([facility]) [address] [facility], [place], [address], 11/19/2023 08:31:32 11/18/19 24 11/19/2023 CBC WITH DIFFE RENTI AL/PL ATELE T hemoglobin 12.6 g/dL 11.1-1 5.9 Not Available [facility] ([facility]) [address] [facility], [place], [address], 11/19/2023 08:31:32 11/18/19 24 11/19/2023 CBC WITH DIFFE RENTI AL/PL ATELE T hematocrit 37.7 % 34.0-4 6.6 Not Available [facility] ([facility]) [address] [facility], [place], [address], 11/19/2023 08:31:32 11/18/19 24 11/19/2023 CBC WITH DIFFE RENTI AL/PL ATELE T MCV 93 fL 79-97 Not Available [facility] ([facility]) [address] [facility], [place], [address], 11/19/2023 08:31:32 11/18/19 24 11/19/2023 CBC WITH DIFFE RENTI AL/PL ATELE T MCH 31.0 pg 26.6-3 3.0 Not Available [facility] ([facility]) [address] [facility], [place], [address], 11/19/2023 08:31:32 11/18/19 24 11/19/2023 CBC WITH DIFFE RENTI AL/PL ATELE T MCHC 33.4 g/dL 31.5-3 5.7 Not Available [facility] ([facility]) [address] [facility], [place], [address], 11/19/2023 08:31:32 11/18/19 24 11/19/2023 CBC WITH DIFFE RENTI AL/PL ATELE T RDW 12.4 % 11.7-1 5.4 Not Available [facility] ([facility]) [address], [place], [address], 11/19/2023 08:31:32 11/18/19 24 11/19/2023 CBC WITH DIFFE RENTI AL/PL ATELE T platelets 231 x10e3 /uL 150-45 0 Not Available [facility] ([facility]) [address] [facility], [place], [address], 11/19/2023 08:31:32 11/18/19 24 11/19/2023 CBC WITH DIFFE RENTI AL/PL ATELE T neutrophils 61 % notest ab. Not Available [facility] ([facility]) [address] [facility], [place], [address], 11/19/2023 08:31:32 11/18/19 24 11/19/2023 CBC WITH DIFFE RENTI AL/PL ATELE T lymphs 29 % notest ab. Not Available [facility] ([facility]) [address] [facility], [place], [address], 11/19/2023 08:31:32 11/18/19 24 11/19/2023 CBC WITH DIFFE RENTI AL/PL ATELE T monocytes 6 % notest ab. Not Available [facility] ([facility]) [address] [facility], [place], [address], 11/19/2023 08:31:32 11/18/19 24 11/19/2023 CBC WITH DIFFE RENTI AL/PL ATELE T eos 3 % notest ab. Not Available [facility] ([facility]) [address] [facility], [place], [address], 11/19/2023 08:31:32 11/18/19 24 11/19/2023 CBC WITH DIFFE RENTI AL/PL ATELE T basos 1 % notest ab. Not Available [facility] ([facility]) [address] [facility], [place], [address], 11/19/2023 08:31:32 11/18/19 24 11/19/2023 CBC WITH DIFFE RENTI AL/PL ATELE T neutrophils (absolute) 4.4 x10e3 /uL 1.4-7. 0 Not Available [facility] ([facility]) [address] [place], [address], 11/19/2023 08:31:32 11/18/19 24 11/19/2023 CBC WITH DIFFE RENTI AL/PL ATELE T lymphs (absolute) 2.1 x10e3 /uL 0.7-3. 1 Not Available [facility] ([facility]) [address] [place], [address], 11/19/2023 08:31:32 11/18/19 24 11/19/2023 CBC WITH DIFFE RENTI AL/PL ATELE T monocytes(ab solute) 0.4 x10e3 /uL 0.1-0. 9 Not Available [facility] ([facility]) [address] [place], [address], 11/19/2023 08:31:32 11/18/19 24 11/19/2023 CBC WITH DIFFE RENTI AL/PL ATELE T eos (absolute) 0.2 x10e3 /uL 0.0-0. 4 Not Available [facility] ([facility]) [address] [place], [address], 11/19/2023 08:31:32 11/18/19 24 11/19/2023 CBC WITH DIFFE RENTI AL/PL ATELE T baso (absolute) 0.0 x10e3 /uL 0.0-0. 2 Not Available [facility] ([facility]) [address] [place], [address], 11/19/2023 08:31:32 11/18/19 24 11/19/2023 CBC WITH DIFFE RENTI AL/PL ATELE T immature granulocytes 0 % notest ab. Not Available [facility] ([facility]) [address] [place], [address], 11/19/2023 08:31:32 11/18/1911/19/2023 CBC WITH DIFFE SHELLEY AL/PL ATELE T immature grans (abs) 0.0 x10e3 /uL 0.0-0. 1 Not Available [facility] ([facility]) [address] [facility], [place], [address], 11/19/2023 08:31:32 Result Notes None recorded. Problems Name Problem SNOMED Code Status Onset Date Resolution Date Notes Provider Name and Address Organization Details Recorded Time Asthma 934911707 Active 2019 DAVID VALENTINE Attn: Mary yanes,[address] [facility], [place], [address], [place] [facility] 2 15:07:50 Mixed anxiety and depressive disorder 011111360 Active 2021 DAVID VALENTINE Attn: Mary yanes,[address] [facility], [place], [address], [place] [facility] 3 14:17:42 Hypothyroidism 68790317 Active 2022 DAVID VALENTINE Attn: Mary yanes,[address] [facility], [place], [address], [place] [facility] 4 10:18:48 Problem Notes None recorded. Procedures Surgical History Date Name Laterality Status Provider Name and Address Organization Details Recorded Time 1 Toenail avulsion completed ARIADNE NUNEZ DPM [address], [place], [address], [place] [facility] 12/27/2020 12:00:43 1 Ulcer Debridement completed [place], [address], [place] [facility] 11/15/2020 17:21:32 1 Toenail avulsion completed [place], [address], [place] [facility] 11/01/2020 18:03:19 9 Date of Last Pap Smear completed Nena Ojeda MA [facility] 12/15/2019 10:58:14 extraction of wisdom tooth completed Latoya Lu MA [facility] 11/11/2018 15:02:05 Imaging Results None recorded. Procedure Notes None recorded. Medical Equipment None Reported. Allergies Allergen ID Allergen Name Allergen Category Reaction Reaction Severity Criticality Documentation Date Start Date Code Code System Note Provider Name and Address Organization Details Recorded Time 823983 Substance with sulfonami de structure and antibacte rial mechanism of action (substanc e) medicatio n Not available Not available Not available 11/11/2018 47291 8003 SNOMED WILLIAM Edward [facility] 9 14:59:39 643048 Cipro medicatio n Not available Not available Not available 11/11/201837368 3 RxNorm WILLIAM Edward [facility] 9 14:59:46 Medications Name Sig Start Date [...] Updated DateTime 5 177.8 cm 25.2 kg/m2 96395.4 6 g 100 % 100 % 95 /min 16 /min 123/78 mm[Hg] Melissa Lopez MA [place] [facility] 5 11:50:33 Date Recorded Body height Body mass index (BMI) Body weight Respiratory rate Body temperature Oxygen saturation Oxygen saturation in Arterial blood by Pulse oximetry Heart rate Systolic And Diastolic Provider Name and Address Organization Details Last Updated DateTime 3 177.8 cm 22.8 kg/m2 58054.8 9 g 16 /min 98 [degF] 98 % 98 % 80 /min 112/72 mm[Hg] Holly Foster [place] [facility] 3 14:03:35 Date Recorded Body height Body mass index (BMI) Body weight Body temperature Oxygen saturation Oxygen saturation in Arterial blood by Pulse oximetry Heart rate Systolic And Diastolic Provider Name and Address Organization Details Last Updated DateTime 2 177.8 cm 25.1 kg/m2 60972.6 6 g 98.1 [degF] 97.98 % 97.98 % 84 /min 110/74 mm[Hg] Verona Crespo MA [facility] 2 14:41:37 Date Recorded Body height Body mass index (BMI) Body weight Oxygen saturation Oxygen saturation in Arterial blood by Pulse oximetry Heart rate Respiratory rate Systolic And Diastolic Provider Name and Address Organization Details Last Updated DateTime 4 177.8 cm 22.8 kg/m2 89141.1 9 g 97 % 97 % 77 /min 16 /min 111/75 mm[Hg] Holly Foster MA [facility] 4 09:54:30 Date Recorded Body height Body mass index (BMI) Body weight Oxygen saturation Oxygen saturation in Arterial blood by Pulse oximetry Heart rate Respiratory rate Systolic And Diastolic Provider Name and Address Organization Details Last Updated DateTime 3 177.8 cm 23 kg/m2 39649.4 8 g 98 % 98 % 76 /min 16 /min 110/70 mm[Hg] Holly Foster MA [facility] 3 12:40:34 Social History Question Answer Notes LastModified by Organizat ion Details LastModified Time Tobacco Smoking Status Never Smoker Latoya Lu MA [facility], [facility] 11/11/2018 15:01:49 Are You Blind Or Do You Have Difficulty Seeing? No Information n ot available 10/23/2020 What Is Your Level Of Caffeine Consumption? Moderate Information not available 12/15/2019 How Much Tobacco Do You Chew? None Information not available 12/15/2019 In The 14 Days Before Symptom Onset, Have You Had Close Contact With A Laboratory-confirm ed COVID-19 While That Case Was Ill? No [email or web address] Information n ot available 10/15/2022 In The 14 Days Before Symptom Onset, Have You Had Close Contact With A Person Who Is Under Investigation For COVID-19 While That Person Was Ill? No [email or web address] Information not available 10/15/2022 Have You Been [...] anxious, or unable to sleep at night)? [id number] Information not available 11/05/2021 Family History Relationship Description Onset Age of this Age Resolved Age Notes LastModified by Organization Details LastModified Time Father Hypercholest erolemia [email or web address] Not available 10/24 15:01:22 Father Hypertensive disorder [email or web address] Not available 10/24 15:01:29 Medical History Condition Response Coronary Artery Disease N Other N High Blood Pressure N Atrial Fibrillation N Thyroid Problems N Kidney or Bladder Problems N GI Problems N Depression N COPD N Blood Clots N Skin Problems N Eating Disorder N Anemia N Heart Attack ([place]) N Anxiety Disorder N Diabetes N Muscle, Joint, or Bone Problems N Seizures/Epilepsy N Acid Reflux (GERD) N Cancer N Stroke N Asthma Y Allergies Y ADHD N Substance Abuse N High Cholesterol N Hepatitis N Liver Disease N Schizophrenia N Headaches Y Heart Failure N Osteoporosis N Gynecological History Statement/Question Response Flow Moderate [...] SNOMED-CT Code Diagnosis ICD10 Code Diagnosis Note [id number] Elzbieta Calzada MD [facility] [address] [place] [address] 11/11/2018 14:14:17 11/21/2018 09:46:50 Migraine 58458146 G43.909 controlled with OTC NSAIDs History an d physical examination, [facility] 69368912 Z02.0 [id number] Elzbieta Calzada MD [facility] [address] [place] [address] 01/09/2019 09:53:37 01/16/2019 10:26:37 Initial prescription of oral contraception 669207814 Z30.011 Pain in pelvis 20801110 R10.2 [id number] Elzbieta Calzada MD [facility] [address] [place] [address] 04/21/2019 14:26:38 04/24/2019 09:59:08 Venereal disease screening 891017830 Z11.3 [id number] Elzbieta Calzada MD [facility] [address] [place] [address] 12/15/2019 09:38:06 12/19/2019 15:49:01 Exercise-induced asthma 73244636 J45.990 Patient advised to have the pharmacist show her how to use her inhalers correctly. Symbicort is to suppress bronchospa sm, ventolin to rescue patient from wheezing and coughing. [id number] Elzbieta Calzada MD [facility] [address] [place] [address] 02/15/2020 09:43:10 02/19/2020 09:41:48 Anterior chest wall pain 831923214 R07.89 May be pleurisy due to atypical pneumoniti s, could be costochond ritis or autoimmune myalgias, but cannot rule out coronaviru s infection without testing. Viral syndrome 248107088 B34.9 Anxiety 80173975 F41.9 discussed side effects and benefits of using buspirone for anxiety. [id number] Elzbieta Calzada MD [facility] [address] [place] [address] 09/20/2020 08:05:23 09/23/2020 12:12:35 Chronic headache disorder 163112437 G44.89 unilateral or behind eyes. Will try amitriptyl ine for prevention of migraines. Patient states she gets better with excedrin or ibuprofen. Encouraged good hydration and suggested keeping a food diary to look for foods which may be triggering the migraines. [id number] Elzbieta Calzada MD [facility] [address] [place] [address] 10/23/2020 12:36:29 10/25/2020 10:52:25 Ingrowing nail of toe of left foot 1335329877 8043598 L60.0 Patient advised to keep toe clean with soap and water, and not to pick at it--the elevator tender can help but it's a lot easier without adding more infections . [id number] ARIADNE NUNEZ DPM [facility] [address] [place] [address] 11/01/2020 11:11:33 11/05/2020 11:11:24 Cellulitis of toe of left foot 3473337961 7300699 L03.032 Cellulitis and abscess of toe 286707194 L02.612 Ingrowing nail 489878366 L60.0 Pyogenic g ranuloma of skin 19236351 L98.0 Contusion of left great toe 0413494899 2647723 S90.212A Pain in left foot 277566 6982 44167 M79.422 [id number] ARIADNE NUNEZ DPM [facility] [address] [place] [address] 11/15/2020 11:52:03 11/19/2020 16:29:53 Cellulitis of toe of left foot 3486043873 7549739 L03.032 Cellulitis and abscess of toe 029702601 L02.612 Pyogenic g ranuloma of skin 74969207 L98.0 Contusion of left great toe 4934306793 4237667 S90.212D Pain in left foot 536782 2021 57107 M79.672 Ulcer of toe 767878127 L 97.368 [id number] ARIADNE NUNEZ DPM [facility] [address] [place] [address] 12/27/2020 10:23:51 12/30/2020 14:06:38 Cellulitis of toe of left foot 7342187944 1067512 L03.032 Cellulitis and abscess of toe 181723840 L02.612 Ingrowing nail 939109833 L60.0 Pyogenic g ranuloma of skin 66992189 L98.0 Contusion of left great toe 7552518977 0898462 S90.212A Pain in left foot 425297 2643 10154 M79.074 [id number] Elzbieta Calzada MD [facility] [address] [place] [address] 2021 10:18:10 02/18/2021 08:04:08 Acute urinary tract infection 927270731 N39.0 [id number] Carlos Fonseca MD [facility] [address] [place] [address] 05/26/2021 09:44:06 05/28/2021 13:58:47 Pain of left shoulder joint 1724357434 6511121 M25.512 meds Neck pain 61117353 M54.2 meds and x-ray [id number] Mateo patel MD [facility] [address] [place] [address] 11/05/2021 14:21:07 11/06/2021 11:18:39 Asthma 514995272 J45.909 uses albuterol PRN with exercising Mixed anxi ety and depressive disorder 304665032 F41.8 on zoloft 50 since 2017depres champ controlled , no concernsPH Q 3 [id number] Mateo patel MD [facility] [address] [place] [address] 10/15/2022 13:46:38 10/15/2022 14:20:25 Asthma 967071084 J45.909 uses albuterol PRN with exercising Mixed anxi ety and depressive disorder 501554913 F41.8 10/15/22:PH Q 0refill zoloftpt asked about tapering off zoloft, started taking due to post depression pt unsure if she needs itrec'd to continue to take until hormone levels are regulated 11/05/21:on zoloft 50 since 2017depres champ controlled , no concernsPH Q 3 Hypothyroidism 71611990 E03.9 on levo 50DrDemetri Rosario is managing Body mass index 20-24 - normal 253332221 Z68.22 Throat irritation 888572 007 R07.0 son diagnosed with strep yesterdayw jung up this AM with scratchy throatPEx- oropharynx nl, tonsils not enlarged, no exudates, 2 uvulasreas sured pt [id number] Mateo patel MD [facility] [address] [place] [address] 06/03/2023 12:37:20 06/03/2023 13:13:40 Conjunctivitis of left eye caused by bacteria 0751055514 0460030 B96.89 x1 dayson with pink eyewearing glasses [...] or no improvemen t in 3 days. [id number] Mateo patel MD [facility] [address] [place] [address] 11/18/2023 09:50:56 11/18/2023 10:30:57 Strain of neck muscle 606855507 S16.1XXA x3 monthsL sidedno trauma or injuryshar p/stabbing painmild relief with NSAIDsPEx- FROM C spinetrial flexerilre alma to PT Adult heal th examination 049991910 Z00.00 routine labs Hypothyroidism 61853328 E03.9 on levo 50Dr. Mariusz Rosario is managingre -check levels today Endometrio sis of ovary 421556338 N80.109 had laparoscop ic surgery 1 mo agodiagnos ed with endometrio sis 3 months ago, per lap- present on ovaries and uterusfoll owing with Mariusz Rosario Mixed anxi ety and depressive disorder 305853418 F41.8 11/18/23: PHQ 0refill zoloft 10/15/22:PH Q 0refill zoloftpt asked about tapering off zoloft, started taking due to post depression pt unsure if she needs itrec'd to continue to take until hormone levels are regulated 11/05/21:on zoloft 50 since 2017depres champ controlled , no concernsPH Q 3 [phone] Aden Coats MD [facility] [address] [place] [address] 10/06/2024 11:43:22 10/06/2024 12:07:36 Mixed anxiety and depressive disorder [id number] F41.8 10/06/24: PHQ 0refill zoloft 11/18/23: PHQ 0refill zoloft 10/15/22:PH Q 0refill zoloftpt asked about tapering off zoloft, started taking due to post depression pt unsure if she needs itrec'd to continue to take until hormone levels are regulated 11/05/21:on zoloft 50 since 2017depres champ controlled , no concernsPH Q 3 [id number] Z33.1 22 wks fo llowing with Dr. [...] Andrade Member ID Guarantor Name 09/20/2020 [place] [facility] Nia Bañuelos [id number] Nia Bañuelos 10/10/2024 2 [facility] (MEDICAID HMO) [id number] 0003 Nia Lambert [id number] Nia Bañuelos 02/15/2020 1 *SELF PAY* Br raulbarney Bañuelos 09/17/2020 SLIDING FEE SCHEDULE - DISCOUNT Nia N Lambert 12/15/2019 1 [facility] (MEDICAID HMO) [id number] Nia Lambert [id number] Nia N Lambert 10/10/2024 1 [facility] ([facility]) [id number] Nia N Lambitalo [id number] 430 Nia Bañuelos Notes Date Note Type Note Provider Name and Address Organization Details Recorded Time 11/05/2021 text/html ROS as noted in the HPI Pt presents to establish care. H/o asthma, migraines, and depression. States that she stopped taking amitriptyline due to trying to conceive. Denies recurrence of migraines. Uses albuterol inhaler PRN with exercising. Depression is controlled with zoloft. Denies fever, chills, chest pain, SOB, n/v/d, abd pain, dizziness, weakness, or headaches. DAVID VALENTINE Attn: Accounting[address] [place], [address], [facility] 11/05/2021 15:11:47 10/15/2022 text/html ROS as noted in the HPI Pt presents for zoloft refill. Reports she is doing well on medication. She is following with [facility] due to difficulty conceiving. Pt's 5 yr old son tested positive for strep yesterday. She woke up this morning with a scratchy throat. Denies fever, chills, chest pain, SOB, n/v/d, abd pain, dizziness, weakness, or headaches. DAVID VALENTINE Attn: [address]ing[address] [place], [address], [facility] 10/15/2022 14:23:39 06/03/2023 text/html ROS as noted in the HPI Pt presents with L pink eye x1 day. Reports that her son was diagnosed with pink eye x2 days ago. C/o mild irritation and gunk on L eye lid. Denies blurred vision or vision changes. She has been applying warm compresses. Pt has been wearing glasses instead of her contacts. DAVID VALENTINE Attn: [address]ing[address] [place], [address], [facility] 06/03/2023 14:44:23 11/18/2023 text/html ROS as noted in the HPI Pt presents for annual exam and L [...] DAVID VALENTINE Attn: Accounting,[address], [place], [address], [place] [facility] 11/19/2023 08:34:48 10/06/2024 text/html ROS as noted in the HPI Pt presents for zoloft refill. She is currently 22 wks , following with Dr. Maria. No complaints today. DAVID VALENTINE Attn: Accounting,[address], [place], [address], [facility] 10/06/2024 12:11:14 OBGyn Episode Ob Episode Information Episode Created Date Number of Fetuses Patient Bloodtype Patient rh Status Prepregnancy Weight lbs Domestic Partner Domestic Partner Phone Father Name Dead Mail Checker Status 12/15/19 20 1 CLOSED Fetus Data First Name Last Name Admitted to NICU Weight (g) Sex Living Outcome Pediatric Complications Fetus ID Race Codes Race Delivery Type [id number] Job Calculation Initial Job Date Initial Exam [...]
--- OUTSIDE RECORDS SUMMARY | 2025-02-15 14:11 | XMS_ITS | Referral Summary ---
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
--- OUTSIDE RECORDS SUMMARY | 2025-02-15 14:11 | XMS_ITS | Clinical Summary ---
Author Organization [facility] [employer] Address [address] [place] [address] Care Team Providers Care Scrap Drop Operator Name Role Phone Unknown, Provider Primary Care Provider Unavaila ble Source Comments [facility],non-owned Affiliates and Associated Physician Practices is amultiple site organization consisting of ambulatory clinics and hospital sitesin [place], [place], [place] and [place]. This disclosure is being madepursuant to the Care Everywhere program and may not contain all information available regarding this patient. Last updated 18.[facility] [employer] Allergies Active Allergy Reactions Criticality Noted Date [...] Hx Hypercholesterolemia Neg Hx Hypertension Neg Hx IN<55(male) Neg Hx IN<65(female) Neg Hx Mental Health Neg Hx Migraine [...] 19+ 3-dose series) 2010 PAP SMEAR 02/18/2012 HPV VACCINE (1 - 3-dose SCDM series) 2018 COVID-19 VACCINE (1 - 2023-2 5 season) 2024 DEPRESSION SCREENING 07/26/2024 INFLUENZA VACCINE (#1) 2025 ZOSTER VACCINE (1 of 2) 2041 [...] patient's age to complete this topic Insurance [facility] SELF PAY NO INSURANCE Member Subscriber Plan / Payer (Ef fective for All Dates) Name:Nia Churchill Member ID:Not on file Relation to Subscriber:Not on file Name:NIA CHURCHILL Subscriber ID:Not on file Address: [address] [place] [address] Payer ID:Not on file Group ID:Not on file Type:Self Pay Address: [place], [place] [facility] SELF PAY NO INSURANCE Member Subscriber Plan / Payer (Ef fective for All Dates) Name:Bipin Churchilli Member ID:Not on file Relation to Subscriber:Not on file Name:NIA CHURCHILL Subscriber ID:Not on file Address: [address] [place] [phone] Payer ID:Not on file Group ID:Not on file Type:Self Pay Address: [place], [place] [facility] SELF PAY NO INSURANCE Member Subscriber Plan / Payer (Ef fective for All Dates) Name:Nia Churchill Member ID:Not on file Relation to Subscriber:Not on file Name:NIA CHURCHILL Subscriber ID:Not on file Address: [address] [place] [phone] Payer ID:Not on file Group ID:Not on file Type:Self Pay Address: [place], [place] Care Teams Scrap Drop Operator Relationship Specialty Start Date End Date Unknown, Provider PCP - General 05/22/16
== END 2025-02-15 13:57 | disposition home or self-care (01) ==
PROVIDERS: PCP Physician Assistant; Visit Provider Obstetrics & Gynecology
DX: M54.30 Sciatica, unspecified side (principal)
CPT/HCPCS: 72100

== ENCOUNTER 2025-04-17 09:22 | Emergency (ER) | payer BC, SELFPAY ==
--- NOTE | ~2025-04-17 | XR_ITS ---
X-rays left fifth finger Indication: PIP joint pain, swelling, redness, decreased range of motion Comparison: None Technique: 4 views left fifth finger Findings/Impression: 1. Thin calcified focus along distal portion of proximal phalanx, medial surface. Avulsion injury not excluded. 2. Similar additional focus along lateral surface as well. 3. No other acute abnormality identified. Reviewed, dictated and finalized at location R.
[2025-04-17 09:31] VITALS: BP 122/72; PULSE 70; RESP 16; TEMP 36.3; O2SAT 100
--- NOTE | 2025-04-17 10:17 | ED.GENADULT ---
HPI - General Adult General Chief complaint: Extremity Injury, Upper Stated complaint: Injured Finger Source: patient Mode of arrival: ambulatory Limitations: no limitations History of Present Illness HPI narrative: Patient presents for evaluation of pain, swelling, redness, and decreased range of motion in the 5th digit left hand. Symptom onset yesterday. She cannot identify any precipitating cause or injury. No history of similar symptoms. She is right-hand dominant. She rates her pain 4 to 8 on a scale of 1-10. she has been taking ibuprofen 800 mg and icing the affected area without considerable improvement in her symptoms thereafter. Related Data Home Medications ?Medication ?Instructions ?Recorded ?Confirmed ?Last Taken ?Type levothyroxine 50 mcg tablet 50 mcg PO DAILY 11/06/22 01/31/25 01/31/25 04:00 History 50 mcg sertraline 50 mg tablet 25 mg PO DAILY 11/06/22 01/31/25 01/30/25 22:00 History 25 mg Allergies Allergy/AdvReac Type Severity Reaction Status Date / Time ciprofloxacin Allergy Intermediate Anaphylactic Verified 04/17/25 09:51 Shock Sulfa (Sulfonamide Allergy Unknown Rash Verified 04/17/25 09:51 Antibiotics) Review of Systems Review of Systems: CONSTITUTIONAL: Denies fever, chills, or sweats. EYES: Denies visual changes, redness, or discharge. ENT: Denies rhinorrhea, congestion, sore throat, or otalgia. CARDIOVASCULAR: Denies chest pain, palpitations, or edema. RESPIRATORY: Denies cough or dyspnea. GASTROINTESTINAL: Denies abdominal pain, nausea, vomiting, or diarrhea. GENITOURINARY: Denies dysuria or hematuria. SKIN: Reports redness to the PIP joint of the 5th digit of the left hand MUSCULOSKELETAL: reports pain, swelling and decreased range of motion of the PIP joint of the 5th digit of the left hand NEUROLOGIC: Denies headache, numbness, dizziness, or weakness. PSYCHIATRIC: Denies anxiety or depression. [facility] Past Medical History Medical History Anxiety Endometriosis Hypothyroidism Asthma Healthy adult Surgical History Surgical History No pertinent past surgical history Family History Family History Father Afib Other Hypertension Social History Social History Smoking status: Never smoker Alcohol intake: never Substance use: never Substance use type: does not use Do You Feel Safe in your Home?: Yes Lack of Transportation: No Lack of Food: Never True Current Housing: I Have Housing Concerned About Future Housing: No Difficulty Paying Gas/Electric Bills: No Difficulty Paying for Meds: No Currently Unemployed: No Education: Associate Degree Difficulty w/ Childcare or Family Care: No Living arrangements: with family Gender identity (if verbalized by the patient): Female Spiritual care concerns: No Exam Narrative: GENERAL: Well-appearing, well-nourished, and in no acute distress. HEAD: Normocephalic, atraumatic. EYES: PERRLA and EOMI. ENT: Nares clear, no rhinorrhea or epistaxis. Mucous membranes moist. Oropharynx without tonsillar hypertrophy exudate or other lesions. Bilateral TMs pearly cervantes nonbulging NECK: Supple. No adenopathy or masses. No carotid bruits or JVD CHEST: Clear to auscultation. No respiratory distress. No wheezes rales or rhonchi HEART: Regular rate and rhythm. No murmur heard. Normal peripheral pulses. ABDOMEN: Soft, nontender, nondistended, normal active bowel sounds. EXTREMITIES: there is swelling and tenderness at the PIP joint of the 5th digit of the left hand. Decreased range of motion in that joint. SKIN: there is erythema noted to the medial aspect of the PIP joint of the 5th digit of left hand NEURO: No focal deficits. Alert and oriented x3. PSYCH: Normal mood and affect. Course Course Emergency Course: This is a 35 year old female who presented for evaluation of pain in PIP of 5th digit of left hand. X ray concerning for avulsion fractures. Provided with finger splint. NSAIDs not particularly helping so will dc with tramadol. Avised to follow up with hand specialist. She should go to the ER for intractable pain. Patient in agreement with plan of care. Level of Care: Express Care Visit Vital Signs Vital signs: Vital Signs Temperature 36.3 C L 04/17/25 09:31 Pulse Rate 70 04/17/25 09:31 Respiratory Rate 16 04/17/25 09:31 Blood Pressure 122/72 04/17/25 09:31 Pulse Oximetry 100 04/17/25 09:31 Temperature 36.3 C L 04/17/25 09:31 Pulse Rate 70 04/17/25 09:31 Respiratory Rate 16 04/17/25 09:31 Blood Pressure 122/72 04/17/25 09:31 Pulse Oximetry 100 04/17/25 09:31 Medical Decision Making Vital Signs Vital Signs: Vital Signs Temperature 36.3 C L 04/17/25 09:31 Pulse Rate 70 04/17/25 09:31 Respiratory Rate 16 04/17/25 09:31 Blood Pressure 122/72 04/17/25 09:31 Pulse Oximetry 100 04/17/25 09:31 Temperature 36.3 C L 04/17/25 09:31 Pulse Rate 70 04/17/25 09:31 Respiratory Rate 16 04/17/25 09:31 Blood Pressure 122/72 04/17/25 09:31 Pulse Oximetry 100 04/17/25 09:31 Imaging Data Radiologist's impression: Ordering Physician: Leo Chase APRN Date of Service: 04/17/25 Procedure(s): XR finger 5th LT min 2V Accession Number(s): [id number] cc: Torie, Annie HERNANDEZ; Leo Chase APRN~ X-rays left fifth finger Indication: PIP joint pain, swelling, redness, decreased range of motion Comparison: None Technique: 4 views left fifth finger Findings/Impression: 1. Thin calcified focus along distal portion of proximal phalanx, medial surface. Avulsion injury not excluded. 2. Similar additional focus along lateral surface as well. 3. No other acute abnormality identified. Discharge Plan Discharge Clinical Impression: Avulsion fracture of proximal phalanx of finger Qualifiers: Encounter type: initial encounter Fracture type: closed Qualified Code(s): S62.619A - Displaced fracture of proximal phalanx of unspecified finger, initial encounter for closed fracture Patient Disposition: Home Condition: Stable Instructions: Antibiotic Form, Avulsion Fracture (ED) Patient Language: Upper Sorbian Prescriptions: New tramadol 50 mg tablet 50 mg PO Q6H PRN (Reason: pain) Qty: 15 0RF No Action levothyroxine 50 mcg tablet 50 mcg PO DAILY sertraline 50 mg tablet 25 mg PO DAILY Follow-up/Referrals: Camelia Padron MD [Physician, Plastic Surgery] Torie,DAVID Valencia [Primary Care Provider, Unknown] Time of Disposition: 11:21
== END 2025-04-17 11:25 | disposition home or self-care (01) ==
PROVIDERS: Emergency Provider Nurse Practitioner; PCP Physician Assistant
DX: S62.617A Displaced fracture of proximal phalanx of left little finger, initial encounter for closed fracture (principal); X58.XXXA Exposure to other specified factors, initial encounter; E03.9 Hypothyroidism, unspecified; N80.9 Endometriosis, unspecified; J45.909 Unspecified asthma, uncomplicated; F41.9 Anxiety disorder, unspecified
CPT/HCPCS: 29130; 73140; 99214; G0463

== ENCOUNTER 2025-04-30 13:21 | Outpatient (CLI) | payer BC, SELFPAY ==
--- NOTE | ~2025-04-30 | XR_ITS ---
EXAMINATION: XR finger 5th LT min 2V, 04/30/2025 13:39 CDT HISTORY: S69.90XA - Unspecified injury of unspecified wrist, hand ... COMPARISON: No comparisons available. Findings: No acute fracture or malalignment. No significant degenerative changes. Soft tissues unremarkable. Impression: No acute fracture or malalignment. Reviewed, dictated and finalized at location P. Impression: No acute fracture or malalignment.
--- OUTSIDE RECORDS SUMMARY | 2025-04-30 14:18 | XMS_ITS | Clinical Summary ---
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 Gender Identity Not on file Sexual Orientation [...] Depression Screening 1991 Hepatitis C Screening 1991 Hepatitis B Screening 2009 Regular Well Visit/Exam 18-64 2009 Pneumococcal vaccine <65 (1 of 2 - PCV) 2010 Zoster Vaccine (1 of 2) 2010 HPV Vaccines (1 - 3-dose SCDM series) 2018 Covid-19 Vaccine (3 - Pfizer risk series) 04/25/2022 03/28/2022, 02/26/2022 Varicella Vaccines (1 of 2 - 13+ 2-dose series) 05/05/2024 Influenza Vaccine (#1) 2025 05/04/2019, 2016 DTaP/Tdap/Td Vaccine (2 - Td or Tdap) 06/17/2026 Insurance [employer] [place]F PPO [place] Care Teams Timber Faller Relationship Specialty Start Date End Date Annie Vogt PA [address] [place] [id number] PCP - General Physician Court Collections Officer 04/21/24
--- OUTSIDE RECORDS SUMMARY | 2025-04-30 14:18 | XMS_ITS | Clinical Summary ---
Author Organization [facility] [employer] Address [address] [place] [address] Care Team Providers Care Developmental Mathematics Instructor Name Role Phone Unknown, Provider Primary Care Provider Unavaila ble Source Comments [facility],non-owned Affiliates and Associated Physician Practices is amultiple site organization consisting of ambulatory clinics and hospital sitesin [place], [place], [place] and [place]. This disclosure is being madepursuant to the Care Everywhere program and may not contain all information available regarding this patient. Last updated 18.[facility] Allergies Active Allergy Reactions Criticality Noted Date [...] Hx Hypercholesterolemia Neg Hx Hypertension Neg Hx FL<55(male) Neg Hx FL<65(female) Neg Hx Mental Health Neg Hx Migraine [...] VACCINE (1 - 3-dose SCDM series) 2018 DEPRESSION SCREENING 07/26/2024 COVID-19 VACCINE (1 - 2023-2 5 season) 2025 INFLUENZA VACCINE (#1) 2025 ZOSTER VACCINE (1 [...] patient's age to complete this topic Insurance [facility] SELF PAY NO INSURANCE Member Subscriber Plan / Payer (Ef fective for All Dates) Name:Nia Churchill Member ID:Not on file Relation to Subscriber:Not on file Name:NIA CHURCHILL Subscriber ID:Not on file Address: [address] [place] [address] Payer ID:Not on file Group ID:Not on file Type:Self Pay Address: [place], [place] [facility] SELF PAY NO INSURANCE Member Subscriber Plan / Payer (Ef fective for All Dates) Name:Bipin Churchilli Member ID:Not on file Relation to Subscriber:Not on file Name:NIA CHURCHILL Subscriber ID:Not on file Address: [address] [place] [phone] Payer ID:Not on file Group ID:Not on file Type:Self Pay Address: [place], [place] [facility] SELF PAY NO INSURANCE Member Subscriber Plan / Payer (Ef fective for All Dates) Name:Nia Churchill Member ID:Not on file Relation to Subscriber:Not on file Name:NIA CHURCHILL Subscriber ID:Not on file Address: [address] [place] [phone] Payer ID:Not on file Group ID:Not on file Type:Self Pay Address: [place], [place] Care Teams Developmental Mathematics Instructor Relationship Specialty Start Date End Date Unknown, Provider PCP - General 05/22/16
== END 2025-04-30 13:22 | disposition home or self-care (01) ==
PROVIDERS: PCP Physician Assistant; Visit Provider Physician Assistant Surgical
DX: S62.617A Displaced fracture of proximal phalanx of left little finger, initial encounter for closed fracture (principal); X58.XXXA Exposure to other specified factors, initial encounter
CPT/HCPCS: 73140